=== PATIENT | female | born 1935 | race Caucasian/White ===

== ENCOUNTER 2018-07-17 10:59 | Inpatient (IN) | payer OTHER ==
--- OUTSIDE RECORDS SUMMARY | 2018-07-17 11:02 | XMS REPORT ---
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
--- OUTSIDE RECORDS SUMMARY | 2018-07-17 11:02 | XMS REPORT ---
:1935 Author Organization eClinicalWorks Care Team Providers Name Role Phone Viviana Cavanaugh Provider Role Unavailable Allergies, Adverse Reactions, Alerts Substance Reaction Event Type statin rabdo Drug Allergy penicillin Info Not Available Drug Allergy Ultram Info Not Available Drug Allergy Levemir Flexpen shaking Drug Allergy Glucophage name brand only, diarrhea Drug Allergy Fenofibrate muscle/joint pain Drug Allergy Cyproheptadine HCl Info Not Available Drug Allergy Coreg dizziness Drug Allergy BP Meds sleepy, can't stay awake Non Drug Allergy Problems Problem Type Condition Code Onset Dates Condition Status Assessment Hyperlipidemia, unspecified E78.5 Active hyperlipidemia type Assessment Chronic kidney disease, stage III N18.3 Active (moderate) Assessment Vitamin D deficiency E55.9 Active Assessment Skin lesion of cheek L98.9 Active Problem Essential (primary) hypertension I10 Active Problem Chronic kidney disease, stage III N18.3 Active (moderate) Problem Vitamin D deficiency E55.9 Active Assessment Essential (primary) hypertension I10 Active Assessment 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, unspecified laterality, unspecified retinopathy severity, unspecified whether intermediate designer insulin use Problem Hyperlipidemia, unspecified E78.5 Active hyperlipidemia type Problem 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, unspecified laterality, unspecified retinopathy severity, unspecified whether mcfp insulin use Medications Medication Code Code Instructions Start End Status Dosage System Date Date Daily Multi NDC 0 Orally Once a Active 1 tablet Vitamin/Minerals day Cyanocobalamin [facility] [address]-87 1000 MCG Orally Active 1 tablet Once a day Probiotic [facility] [address] Sep 08, Active not 2016 defined MetFORMIN HCl ER [facility] 52089919337 500 MG Active TAKE 1 TABLET BY MOUTH EVERY DAY Docusate Sodium ND 98572609080 100 MG Orally March 11, Active 1 capsule Once a day 2014 as needed Lantus SoloStar [facility] 11589214022 100 UNIT/ML Active 25-30 Subcutaneous units/55 pm/am units Vitamin D-3 [facility] [address]16-[address]483 1999 intl units Active 1 capsule Orally Once a day x 30 days Fish Oil [facility] 51348049822 1200 MG Orally May 20, Active 1 capsule Once a day 2014 Aspirin [facility] 20088121859 325 MG Orally May 20, Active 1 tablet Once a day 2014 Pataday [facility] 59205472236 0.2 % Sep 11, Active 1 drop Ophthalmic once 2016 a day x 10 days NIFEdipine ER [facility] 36699296583 30 MG Orally February 18, Active 1 tablet BID 2013 on an empty stomach Humalog KwikPen [facility] 03290110570 100 UNIT/ML Active Subcutaneous units Breakfast/lunch /dinner Results No Known Results Summary Purpose eClinicalWorks Submission
[2018-07-17 13:39] LABS: Absolute Lymphocytes (CBC) 2.2 K/uL (0.7-4.9); Absolute Monocytes 0.8 K/uL (0.1-1.3); Absolute Neutrophil 5.3 K/uL (1.8-8.0); Basophils % 0.9 % (0-1.3); Eosinophils % 2.3 % (0-4.4); Hematocrit 41.7 % (36.0-45.0); Lymphocytes % 25.8 % (15.3-44.8); MCH 31.2 pg (27.0-35.0); MCV 91.4 fL (80-100); MPV 9.2 fL (7.6-11.3); Monocytes % 9.5 % (3.3-12.3); RBC Red Blood Cell Count 4.56 M/uL (3.86-4.86)
[2018-07-17 13:45] LABS: Protime INR 1.09
[2018-07-17 13:46] LABS: Albumin 3.3 g/dL (3.4-5.0); Bilirubin Direct 0.1 mg/dL (0-0.2); Bilirubin Total 0.4 mg/dL (0.2-1.0); Magnesium 2.2 mg/dL (1.8-2.4); Potassium 4.1 mmol/L (3.5-5.1); Protein, Total 7.3 g/dL (6.4-8.2); Troponin (Emerg Dept Use Only) 0.27 ng/mL (0.0-0.045)
--- NOTE | 2018-07-17 14:11 | RAD REPORT ---
EXAM DESCRIPTION: CT - Chest For Pe Angio - 07/17/2018 1:57 pm CLINICAL HISTORY: Chest pain. Cough;Dyspnea COMPARISON: No comparisons TECHNIQUE: CT angiogram of the pulmonary arteries was performed with MIP. All CT scans are performed using dose optimization technique as appropriate and may include automated exposure control or mA/KV adjustment according to patient size. FINDINGS: No evidence of pulmonary thromboembolism. No acute aortic finding demonstrated. Mild to moderate interstitial pulmonary edema is present. Small bilateral pleural effusions are present. No concerning bony finding. IMPRESSION: No evidence of pulmonary thromboembolism. Moderate CHF versus volume overload pattern.
--- NOTE | 2018-07-17 14:24 | ER ---
Nurse's Notes [facility] Name: Rylee Burch Age: 82 yrs Sex: Female : 1935 Arrival Date: 07/17/2018 Time: 11:00 Bed 3 Private MD: Audrey Cavanaugh Diagnosis: Unspecified combined systolic (congestive) and diastolic (congestive) heart failure;Dyspnea;Essential (primary) hypertension;Type 1 diabetes mellitus;Cystitis Presentation: 07/17 11:04 Presenting complaint: Patient states: shortness of breath with exertion x 3 days. ss Transition of care: patient was not received from another setting of care. Onset of symptoms was July 14, 2018. Risk Assessment: Do you want to hurt yourself or someone else? Patient reports no desire to harm self or others. Initial Sepsis Screen: Does the patient meet any 2 criteria? No. Patient's initial sepsis screen is negative. Does the patient have a suspected source of infection? No. Patient's initial sepsis screen is negative. Care prior to arrival: None. 11:04 Method Of Arrival: Wheelchair ss 11:04 Acuity: JOSE E 3 ss Historical: - Allergies: 11:07 PENICILLINS; ss 11:07 Cyproheptadine; ss - PMHx: 11:07 Diabetes - IDDM; Hypertension; ss - Immunization history:: Adult Immunizations unknown. - Social history:: Smoking status: Patient/guardian denies using tobacco. - Ebola Screening: : Patient denies exposure to infectious person Patient denies travel to an Ebola-affected area in the 21 days before illness onset. - Family history:: not pertinent. Screenin:30 Abuse screen: Denies threats or abuse. Denies injuries from another. Nutritional jl7 screening: No deficits noted. Tuberculosis screening: No symptoms or risk factors identified. Fall Risk IV access (20 points). Total Houston Fall Scale indicates No Risk (0-24 pts). Assessment: 12:30 General: Appears in no apparent distress. uncomfortable, Behavior is calm, cooperative, jl7 appropriate for age. Pain: Denies pain. Neuro: Level of Consciousness is awake, alert, obeys commands, Oriented to person, place, time, situation. Cardiovascular: Rhythm is sinus rhythm. Respiratory: Airway is patent Respiratory effort is even, unlabored, Respiratory pattern is regular, symmetrical, Breath sounds are clear bilaterally. GI: No signs and/or symptoms were reported involving the gastrointestinal system. : No signs and/or symptoms were reported regarding the genitourinary system. EENT: No signs and/or symptoms were reported regarding the EENT system. Derm: Skin is pink, warm \T\ dry. Musculoskeletal: No signs and/or symptoms reported regarding the musculoskeletal system. 13:30 Reassessment: Patient appears in no apparent distress at this time. No changes from [facility] previously documented assessment. Patient and/or family updated on plan of care and expected duration. Pain level reassessed. Patient is alert, oriented x 3, equal unlabored respirations, skin warm/dry/pink. 15:00 Reassessment: Patient appears in no apparent distress at this time. Patient and/or jl7 family updated on plan of care and expected duration. Pain level reassessed. Patient is alert, oriented x 3, equal unlabored respirations, skin warm/dry/pink. 16:00 Reassessment: Patient appears in no apparent distress at this time. Patient and/or jl7 family updated on plan of care and expected duration. Pain level reassessed. Patient is alert, oriented x 3, equal unlabored respirations, skin warm/dry/pink. Pt requesting to talk to [facility], ERD notified. 16:30 Reassessment: Pt wants to talk to [facility] before going to the floor, ERD notified. [facility] 17:00 Reassessment: Dr. Sargent at bedside. [facility] Vital Signs: 11:04 BP 151 / 76; Pulse 104; Resp 18; Temp 98.1(TE); Pulse Ox 96% on R/A; Weight 102.06 kg; ss Height 5 ft. 2 in. (157.48 cm); Pain 0/10; 12:00 BP 152 / 74; Pulse 90; Resp 16; Pulse Ox 96% on R/A; jl7 13:00 BP 145 / 75; Pulse 98; Resp 16 S; Pulse Ox 95% on R/A; jl7 14:00 BP 129 / 69; Pulse 88; Resp 17 S; Pulse Ox 96% on R/A; jl7 15:00 BP 130 / 68; Pulse 88; Resp 17 S; Pulse Ox 95% on R/A; 7 16:00 BP 134 / 74; Pulse 88; Resp 16 S; Pulse Ox 95% on R/A; jl7 17:00 BP 120 / 67; Pulse 76; Resp 17 S; Pulse Ox 96% on R/A; jl7 11:04 Body Mass Index 41.15 (102.06 kg, 157.48 cm) ED Course: 11:00 Patient arrived in ED. rg4 11:01 Audrey Cavanaugh is Private Physician. rg4 11:06 Triage completed. ss 11:07 Arm band placed on right wrist. Patient notified of wait time. ss 12:16 Octavio Sargent MD is Attending Physician. shanice 12:30 Patient has correct armband on for positive identification. Placed in gown. Bed in low jl7 position. Call light in reach. Side rails up X2. workers compensation consultant on. Pulse ox on. NIBP on. Warm blanket given. 12:32 Melissa Tracey, KAREY is Primary Nurse. jl7 12:51 EKG done, by quality assurance qa lab technician. reviewed by Octavio Sargent MD. at1 13:03 Radiology exam delayed due to lab results not completed at this time. (BUN/Creatinine). vr 13:17 Inserted saline lock: 20 gauge in left antecubital area, using aseptic technique. iw 13:17 Initial lab(s) drawn, by me, sent to lab. Inserted saline lock: 22 gauge in right iw wrist, using aseptic technique. Blood collected. 13:22 Radiology exam delayed due to lab results not completed at this time. (BUN/Creatinine). kw1 13:58 CT Chest For PE Angio In Process Unspecified. EDMS 14:04 X-ray completed. Portable x-ray completed in exam room. Patient tolerated procedure mh1 well. 14:20 Solo Sanchez MD is Hospitalizing Provider. shanice 14:23 XRAY Chest (1 view) In Process Unspecified. EDMS 14:29 Urine collected: hat, cloudy. dh3 15:25 Hospitalizing Provider role handed off by Solo Sanchez MD bd 15:25 Adrien Ray MD is Hospitalizing Provider. bd 17:39 No provider procedures requiring assistance completed. Patient admitted, IV remains in jl7 place. intact, No redness/swelling at site. Administered Medications: Discontinued: NS 0.9% 1000 ml IV at 75 ml/hr continuous 13:00 Drug: NS 0.9% 1000 ml Route: IV; Rate: 75 ml/hr; Site: right antecubital; jl7 17:13 Follow up: IV Status: Order to discontinue infusion jl7 15:35 Drug: Pepcid 20 mg Route: IVP; Site: right antecubital; jl7 16:00 Follow up: Response: No adverse reaction jl7 15:39 Drug: Aspirin Chewable Tablet 324 mg Route: PO; jl7 17:29 Follow up: Response: No adverse reaction jl7 15:39 Drug: Lopressor (metoprolol TARTRATE) 50 mg Route: PO; jl7 16:00 Follow up: Response: No adverse reaction jl7 16:00 Drug: levofloxacin 500 mg Volume: 100 ml; Route: IVPB; Infused Over: 60 mins; Site: jl left antecubital; 17:00 Follow up: Response: No adverse reaction; IV Status: Completed infusion jl7 16:30 Drug: Lasix 40 mg Route: IVP; Site: left antecubital; jl7 17:29 Follow up: Response: No adverse reaction jl7 17:20 Drug: Lovenox 100 mg Route: Sub-Q; Site: left upper abdomen; jl7 17:30 Follow up: Response: No adverse reaction jl7 Point of Care Testing: Blood Glucose: 11:05 Blood Glucose: 103 mg/dL; jl7 Ranges: Outcome: 14:23 Decision to Hospitalize by Provider. shanice 17:39 Patient left the ED. iw 17:39 Admitted to Tele accompanied by tech, family with patient, via wheelchair, room 410, jl7 with chart, Report called to Floor RN 17:39 Condition: stable 17:39 Discharge instructions given to patient, Instructed on the need for admit, Demonstrated understanding of instructions. Signatures: Dispatcher [employer] Juliann Coelho Corey, MD MD cha Harvey, Martha mh1 Hilda Clemente, KAREY RN Stephie Calvo RN RN ss Davis, Victoria vr Gonzales, Amanda, chief operating engineer EKG Tat1 Charley Baldwin Jahala, RN RN jl7 Terri Roberts 3 Genesis Osborne kw1
--- NOTE | 2018-07-17 14:24 | EDPHYS ---
Physician Documentation [facility] Name: Rylee Burch Age: 82 yrs Sex: Female : 1935 Arrival Date: 07/17/2018 Time: 11:00 Bed 3 Private MD: Audrey Cavanaugh ED Physician Octavio Sargent HPI: 07/17 12:26 This 82 yrs old Female presents to ER via Wheelchair with complaints of shanice Breathing Difficulty, Trouble Walking. 12:26 The patient has shortness of breath at rest, with light activity. Onset: The shanice symptoms/episode began/occurred 5 day(s) ago. Duration: The symptoms are continuous, and are steadily getting worse. The patient's shortness of breath is aggravated by coughing, light activity, talking, walking. Associated signs and symptoms: The patient has no apparent associated signs or symptoms. Severity of symptoms: At their worst the symptoms were mild in the emergency department the symptoms are unchanged. The patient has not experienced similar symptoms in the past. Historical: - Allergies: 11:07 PENICILLINS; ss 11:07 Cyproheptadine; ss - PMHx: 11:07 Diabetes - IDDM; Hypertension; ss - Immunization history:: Adult Immunizations unknown. - Social history:: Smoking status: Patient/guardian denies using tobacco. - Ebola Screening: : Patient denies exposure to infectious person Patient denies travel to an Ebola-affected area in the 21 days before illness onset. - Family history:: not pertinent. ROS: 12:26 Constitutional: Negative for fever, chills, and weight loss, Eyes: Negative for injury, shanice pain, redness, and discharge, ENT: Negative for injury, pain, and discharge, Neck: Negative for injury, pain, and swelling, Cardiovascular: Negative for chest pain, palpitations, and edema, Abdomen/GI: Negative for abdominal pain, nausea, vomiting, diarrhea, and constipation, Back: Negative for injury and pain, : Negative for injury, bleeding, discharge, and swelling, MS/Extremity: Negative for injury and deformity, Skin: Negative for injury, rash, and discoloration, Neuro: Negative for headache, weakness, numbness, tingling, and seizure, Psych: Negative for depression, anxiety, suicide ideation, homicidal ideation, and hallucinations, Allergy/Immunology: Negative for hives, rash, and allergies, Endocrine: Negative for neck swelling, polydipsia, polyuria, polyphagia, and marked weight changes, Hematologic/Lymphatic: Negative for swollen nodes, abnormal bleeding, and unusual bruising. 12:26 Respiratory: Positive for cough, shortness of breath, at rest. Exam: 12:26 Constitutional: This is a well developed, well nourished patient who is awake, alert, shanice and in no acute distress. Head/Face: Normocephalic, atraumatic. Eyes: Pupils equal round and reactive to light, extra-ocular motions intact. Lids and lashes normal. Conjunctiva and sclera are non-icteric and not injected. Cornea within normal limits. Periorbital areas with no swelling, redness, or edema. ENT: Nares patent. No nasal discharge, no septal abnormalities noted. Tympanic membranes are normal and external auditory canals are clear. Oropharynx with no redness, swelling, or masses, exudates, or evidence of obstruction, uvula midline. Mucous membranes moist. Neck: Trachea midline, no thyromegaly or masses palpated, and no cervical lymphadenopathy. Supple, full range of motion without nuchal rigidity, or vertebral point tenderness. No Meningismus. Chest/axilla: Normal chest wall appearance and motion. Nontender with no deformity. No lesions are appreciated. Cardiovascular: Regular rate and rhythm with a normal S1 and S2. No gallops, murmurs, or rubs. Normal PMI, no JVD. No pulse deficits. Respiratory: Lungs have equal breath sounds bilaterally, clear to auscultation and percussion. No rales, rhonchi or wheezes noted. No increased work of breathing, no retractions or nasal flaring. Abdomen/GI: Soft, non-tender, with normal bowel sounds. No distension or tympany. No guarding or rebound. No evidence of tenderness throughout. Back: No spinal tenderness. No costovertebral tenderness. Full range of motion. Skin: Warm, dry with normal turgor. Normal color with no rashes, no lesions, and no evidence of cellulitis. MS/ Extremity: Pulses equal, no cyanosis. Neurovascular intact. Full, normal range of motion. Neuro: Awake and alert, GCS 15, oriented to person, place, time, and situation. Cranial nerves II-XII grossly intact. Motor strength 5/5 in all extremities. Sensory grossly intact. Cerebellar exam normal. Normal gait. Psych: Awake, alert, with orientation to person, place and time. Behavior, mood, and affect are within normal limits. Vital Signs: 11:04 BP 151 / 76; Pulse 104; Resp 18; Temp 98.1(TE); Pulse Ox 96% on R/A; Weight 102.06 kg; ss Height 5 ft. 2 in. (157.48 cm); Pain 0/10; 12:00 BP 152 / 74; Pulse 90; Resp 16; Pulse Ox 96% on R/A; jl7 13:00 BP 145 / 75; Pulse 98; Resp 16 S; Pulse Ox 95% on R/A; jl7 14:00 BP 129 / 69; Pulse 88; Resp 17 S; Pulse Ox 96% on R/A; jl7 15:00 BP 130 / 68; Pulse 88; Resp 17 S; Pulse Ox 95% on R/A; jl7 16:00 BP 134 / 74; Pulse 88; Resp 16 S; Pulse Ox 95% on R/A; jl7 17:00 BP 120 / 67; Pulse 76; Resp 17 S; Pulse Ox 96% on R/A; jl7 11:04 Body Mass Index 41.15 (102.06 kg, 157.48 cm) ss MDM: 12:16 Patient medically screened. [facility] 12:27 Data reviewed: vital signs, nurses notes, lab test result(s), EKG, radiologic studies, [facility] CT scan. 07/17 12:26 Order name: Basic Metabolic Panel; Complete Time: 14:04 [facility] 07/17 12:26 Order name: CBC with Diff; Complete Time: 14:04 [facility] 07/17 12:26 Order name: LFT's; Complete Time: 14:04 [facility] 07/17 12:26 Order name: Magnesium; Complete Time: 14:04 [facility] 07/17 12:26 Order name: NT PRO-BNP; Complete Time: 14:04 [facility] 07/17 12:26 Order name: PT-INR; Complete Time: 16:39 [facility] 07/17 12:26 Order name: Troponin (emerg Dept Use Only); Complete Time: 14:04 [facility] 07/17 12:26 Order name: Lipase; Complete Time: 14:04 [facility] 07/17 12:26 Order name: Blood Culture Adult (2) [facility] 07/17 12:26 Order name: Urine Culture [facility] 07/17 15:10 Order name: Urine Dipstick--Ancillary (enter results) 07/17 15:38 Order name: Basic Metabolic Panel [facility] 07/17 15:38 Order name: Basic Metabolic Panel [facility] 07/17 15:38 Order name: CBC with Automated Diff [facility] 07/17 12:26 Order name: XRAY Chest (1 view); Complete Time: 16:39 [facility] 07/17 12:26 Order name: CT Chest For PE Angio; Complete Time: 14:16 [facility] 07/17 14:19 Order name: Echo w/ Doppler [facility] 07/17 15:38 Order name: CBC with Automated Diff [facility]TX 07/17 15:38 Order name: NT PRO-BNP [facility]TX 07/17 15:38 Order name: NT PRO-BNP [facility] 07/17 15:38 Order name: Troponin I [facility] 07/17 15:38 Order name: Troponin I [facility]TX 07/17 15:38 Order name: Troponin I [facility] 07/17 12:26 Order name: EKG; Complete Time: 12:27 [facility] 07/17 12:26 Order name: Cardiac monitoring; Complete Time: 13:28 [facility] 07/17 12:26 Order name: EKG - Nurse/Tech; Complete Time: 13:28 [facility] 07/17 12:26 Order name: IV Saline Lock; Complete Time: 13:28 [facility] 07/17 12:26 Order name: Labs collected and sent; Complete Time: 13:28 [facility] 07/17 12:26 Order name: O2 Per Protocol; Complete Time: 13:28 [facility] 07/17 12:26 Order name: O2 Sat Monitoring; Complete Time: 13:28 [facility] 07/17 12:26 Order name: Urine Dipstick-Ancillary (obtain specimen); Complete Time: 14:30 [facility] 07/17 15:38 Order name: CONS Physician Consult [facility]TX 07/17 15:38 Order name: Consistent Carb (ADA) 1800 Rogelio [facility]TX 07/17 15:38 Order name: EKG Electrocardiogram [facility]TX 07/17 15:38 Order name: EKG Electrocardiogram EDTX Administered Medications: Discontinued: NS 0.9% 1000 ml IV at 75 ml/hr continuous 13:00 Drug: NS 0.9% 1000 ml Route: IV; Rate: 75 ml/hr; Site: right antecubital; jl7 17:13 Follow up: IV Status: Order to discontinue infusion jl7 15:35 Drug: Pepcid 20 mg Route: IVP; Site: right antecubital; jl7 16:00 Follow up: Response: No adverse reaction 7 15:39 Drug: Aspirin Chewable Tablet 324 mg Route: PO; jl7 17:29 Follow up: Response: No adverse reaction 7 15:39 Drug: Lopressor (metoprolol TARTRATE) 50 mg Route: PO; jl7 16:00 Follow up: Response: No adverse reaction 7 16:00 Drug: levofloxacin 500 mg Volume: 100 ml; Route: IVPB; Infused Over: 60 mins; Site: jl7 left antecubital; 17:00 Follow up: Response: No adverse reaction; IV Status: Completed infusion jl7 16:30 Drug: Lasix 40 mg Route: IVP; Site: left antecubital; jl7 17:29 Follow up: Response: No adverse reaction jl7 17:20 Drug: Lovenox 100 mg Route: Sub-Q; Site: left upper abdomen; jl7 17:30 Follow up: Response: No adverse reaction jl7 Point of Care Testing: Blood Glucose: 11:05 Blood Glucose: 103 mg/dL; jl7 Ranges: Critical Glucose Levels:Adult <50 mg/dl or >400 mg/dl <40 mg/dl or >180 mg/dl Disposition: 07/17/18 14:23 Hospitalization ordered by Adrien Ray for Inpatient Admission. Preliminary diagnosis are Unspecified combined systolic (congestive) and diastolic (congestive) heart failure, Dyspnea, Essential (primary) hypertension, Type 1 diabetes mellitus, Cystitis. - Bed requested for Telemetry/MedSurg (Inpatient). - Status is Inpatient Admission. iw - Condition is Fair. - Problem is new. - Symptoms have improved. UTI on Admission? Yes Signatures: Dispatcher [employer] Juliann Coelho Corey, MD MD cha Williams, Irene, RN RN iw Smirch, Shelby, RN RN ss Leal, Jahala, RN RN jl7 Corrections: (The following items were deleted from the chart) 14:28 14:23 Hospitalization Ordered by Solo Sanchez MD for Inpatient Admission. Preliminary shanice diagnosis is Unspecified combined systolic (congestive) and diastolic (congestive) heart failure; Dyspnea; Essential (primary) hypertension; Type 1 diabetes mellitus. Bed requested for Telemetry/MedSurg (Inpatient). Status is Inpatient Admission. Condition is Fair. Problem is new. Symptoms have improved. UTI on Admission? No. shanice 15:25 14:28 07/17/2018 14:23 Hospitalization Ordered by Solo Sanchez MD for Inpatient bd Admission. Preliminary diagnosis is Unspecified combined systolic (congestive) and diastolic (congestive) heart failure; Dyspnea; Essential (primary) hypertension; Type 1 diabetes mellitus; Cystitis. Bed requested for Telemetry/MedSurg (Inpatient). Status is Inpatient Admission. Condition is Fair. Problem is new. Symptoms have improved. UTI on Admission? Yes. shanice 16:35 15:25 07/17/2018 14:23 Hospitalization Ordered by Adrien Ray MD for Inpatient bd Admission. Preliminary diagnosis is Unspecified combined systolic (congestive) and diastolic (congestive) heart failure; Dyspnea; Essential (primary) hypertension; Type 1 diabetes mellitus; Cystitis. Bed requested for Telemetry/MedSurg (Inpatient). Status is Inpatient Admission. Condition is Fair. Problem is new. Symptoms have improved. UTI on Admission? Yes. bd 17:39 16:35 07/17/2018 14:23 Hospitalization Ordered by Adrien Ray MD for Inpatient iw Admission. Preliminary diagnosis is Unspecified combined systolic (congestive) and diastolic (congestive) heart failure; Dyspnea; Essential (primary) hypertension; Type 1 diabetes mellitus; Cystitis. Bed requested for Telemetry/MedSurg (Inpatient). Status is Inpatient Admission. Condition is Fair. Problem is new. Symptoms have improved. UTI on Admission? Yes. bd
--- NOTE | 2018-07-17 14:25 | RAD REPORT ---
EXAM DESCRIPTION: RAD - Chest Single View - 07/17/2018 2:11 pm CLINICAL HISTORY: Cough;Dyspnea Chest pain. COMPARISON: CHEST PA AND LAT 2 VIEW dated 02/06/2009 FINDINGS: Portable technique limits examination quality. Mild to moderate bilateral pulmonary opacities are noted likely representing pulmonary edema. Small b ilateral pleural effusions seen. Cardiac size mildly prominent. IMPRESSION: Mild to moderate CHF versus volume overload pattern.
--- NOTE | 2018-07-17 15:10 | EKG ---
Test Date: 2018-07-17 Test Time: 12:39:50 Lap Grinder: RHIANNON MEASUREMENT RESULTS: Intervals: Rate: 96 WY: 138 QRSD: 82 QT: 362 QTc: 457 [place]: P: 42 W[place]: 138 QRS: -4 T: 165 INTERPRETIVE STATEMENTS: Normal sinus rhythm ST & T wave abnormality, consider lateral ischemia Abnormal ECG Compared to ECG 02/26/2014 14:27:38 ST (T wave) deviation now present Electronically Signed On 07-17-18 15:09:47 PIPE ORGAN INSTALLER by Lucian Whitehead
[2018-07-17] MEDS ORDERED: NA CHLORIDE 0.9% 1,000 ML ONE (15:32)
[2018-07-17] MEDS ORDERED: ASPIRIN 81 MG CHEWABLE TABLET ONE (15:32)
[2018-07-17] MEDS ORDERED: Levofloxacin500mg IV 500 MG/100 ML BAG IV ONE (15:32)
[2018-07-17] MEDS ORDERED: FUROSEMIDE 40 MG/4 ML VIAL ONE (15:32)
[2018-07-17] MEDS ORDERED: FAMOTIDINE 20 MG/2 ML VIAL IV ONE (15:32)
[2018-07-17] MEDS ORDERED: METOPROLOL TAR 50 MG TAB ONE (15:32)
[2018-07-17] MEDS ORDERED: ALBUTEROL 2.5 MG/3 ML NEB SOL NEB PRN (15:35)
[2018-07-17] MEDS ORDERED: MORPHINE 2 MG/ML SYR IV PRN (15:35)
[2018-07-17] MEDS ORDERED: IPRATROPIUM BROM 0.5MG/2.5ML NEB PRN (15:35)
[2018-07-17] MEDS ORDERED: ACETAMINOPHEN 500 MG TAB PO PRN (15:35)
[2018-07-17] MEDS ORDERED: ONDANSETRON 4 MG/2 ML VIAL IV PRN (15:35)
[2018-07-17] MEDS ORDERED: ENOXAPARIN 100 MG/ML SYR SQ SCH (16:00)
[2018-07-17] MEDS ORDERED: FUROSEMIDE 20 MG/ 2ML VIAL IV SCH (17:00)
[2018-07-17] MEDS ORDERED: ENOXAPARIN 100 MG/ML SYR SQ ONE (17:24)
[2018-07-17 18:31] VITALS: BMI 40.8
[2018-07-17] MEDS ORDERED: PNEUMOCOCCAL VACCINE 0.5 ML IMVAC ONE (21:00)
[2018-07-17] MEDS ORDERED: METOPROLOL TAR 50 MG TAB PO SCH (21:00)
[2018-07-17 22:09] LABS: Urine Blood NEGATIVE (NEG); Urine Glucose NEGATIVE (NEG); Urine Protein NEGATIVE (NEG); Urine Specific Gravity 1.015 (1.005-1.030)
[2018-07-18 05:03] LABS: Absolute Lymphocytes (CBC) 2.6 K/uL (0.7-4.9); Absolute Monocytes 0.9 K/uL (0.1-1.3); Absolute Neutrophil 4.5 K/uL (1.8-8.0); Basophils % 0.9 % (0-1.3); Eosinophils % 3.1 % (0-4.4); Hematocrit 37.5 % (36.0-45.0); Lymphocytes % 31.6 % (15.3-44.8); MCH 30.6 pg (27.0-35.0); MCV 91.4 fL (80-100); MPV 9.3 fL (7.6-11.3)
--- NOTE | 2018-07-18 07:03 | RAD REPORT ---
EXAM DESCRIPTION: RAD - Chest Single View - 07/18/2018 6:43 am CLINICAL HISTORY: Chest pain COMPARISON: July 17January 2009 TECHNIQUE: AP portable chest image was obtained 0624 hours . FINDINGS: No new mass or consolidation. Lung markings have diminished fractionally from the prior st udy. Heart size has decreased in size. Trachea remains midline. No pneumothorax or enlarging pleural effusion. Left costophrenic angle blunting has improved. No acute bony abnormality seen. No acute aor tic findings suspected. IMPRESSION: Partial resolution of CHF/ volume overload since prior day study.
[2018-07-18] MEDS ORDERED: GLUCAGON 1 MG/VIAL IM PRN (08:27)
[2018-07-18] MEDS ORDERED: D50W 25 GM/50 ML SYRINGE IV PRN (08:27)
[2018-07-18] MEDS ORDERED: INSULIN GLARGINE HUM REC ANLOG 80 UNIT SQ SCH (09:00)
[2018-07-18] MEDS: ASCORBIC ACID 500 MG TABLET PO SCH (09:45)
[2018-07-18] MEDS: VITAMIN D 1000 UNIT TAB PO SCH (09:45)
[2018-07-18] MEDS: DOCOSAHEXANOIC AC/EPA 1000 MG PO SCH (09:45)
[2018-07-18] MEDS: MULTIVIT W/ MINERAL TAB PO SCH (09:45)
[2018-07-18] MEDS: NIFEDIPINE XL 30 MG TABLET PO SCH ×2 (09:45→20:56)
[2018-07-18] MEDS: ASPIRIN 81 MG CHEWABLE TABLET PO SCH (09:45)
[2018-07-18] MEDS: FUROSEMIDE 40 MG/4 ML VIAL IV SCH ×2 (09:47→17:10)
[2018-07-18] MEDS: INSULIN -REGULAR HUMAN 50 UNIT/0.5 ML ML SQ SCH ×3 (12:08→20:56)
--- NOTE | 2018-07-18 12:13 | ECHO ---
HEIGHT: 5 ft 2 in WEIGHT: 223 lb 11.2 oz DATE OF STUDY: 07/18/[address]: 2-DIMENSIONAL: YES M.MODE: YES DOPPLER: YES COLOR FLOW: YES TDS: NO PORTABLE: NO DEFINITY: NO BUBBLE STUDY: NO DIAGNOSIS: CONGESTIVE HEART FAILURE CARDIAC HISTORY: CATHERIZATION: SURGERY: PROSTHETIC VALVE: PACEMAKER: MEASUREMENTS (cm) DIASTOLIC (NORMALS) SYSTOLIC (NORMALS) IVSd 1.1 (0.6-1.2) LA Diam 3.3 (1.9-4.0) LVEF 40-45% LVIDd 4.7 (3.5-5.7) LVIDs 3.5 (2.0-3.5) %FS 24% LVPWd 1.1 (0.6-1.2) Ao Diam 2.4 (2.0-3.7) 2 DIMENSIONAL ASSESSMENT: RIGHT ATRIUM: NORMAL LEFT ATRIUM: NORMAL RIGHT VENTRICLE: NORMAL LEFT VENTRICLE: NORMAL SIZE TRICUSPID VALVE: NORMAL MITRAL VALVE: MITRAL ANNULAR CALCIFICATION PULMONIC VALVE: NORMAL AORTIC VALVE: SCLEROSIS PERICARDIAL EFFUSION: NONE AORTIC ROOT: NORMAL LEFT VENTRICULAR WALL MOTION: ANTEROAPICAL HYPOKINESIS. DOPPLER/COLOR FLOW: MILD TRICUSPID REGURGITATION. COMMENTS: ANTEROAPICAL HYPOKINESIS. EJECTION FRACTION 40-45%. MITRAL ANNULAR CALCIFICATION. AORTIC SCLEROSIS. TECHNOLOGIST: AMAURY CHANDLER RDCS
--- NOTE | 2018-07-18 13:31 | CON ---
Date of Consultation: 07/18/2018 Reason For Consultation: [id number] myocardial infarction and new-onset congestive heart failu re. History Of Present Illness: Ms. Burch is an 82-year-old woman who has been fairly healthy. She does have diabetes and hypertension. She has been having dyspnea on exertion and chest tightness for abou t a week or 2. She finally came into the emergency room because she could not lie down flat, had PND , orthopnea, and pedal edema. No palpitation, no syncope. She had some chest tightness. She was fo und to have an elevated troponin. Her BNP was 1007. Chest x-ray and CT angiogram showed significant heart failure. EKG showed inferolateral ischemia. She continues to be short of breath. Past Medical History: As stated above. Allergies: SHE IS ALLERGIC TO PENICILLIN AND CYPROHEPTADINE. Review of Systems: Negative. Social History: Negative. Family History: Negative. Medications: Include aspirin, Procardia, and insulin. Physical Examination: General: Ms. Burch weighs 223 pounds. She was in mild respiratory distress. Vital Signs: Stable. She was in a sinus rhythm, afebrile. HEENT: Negative. Neck: Supple without any bruit or lymphadenopathy. She had JVD 3 cm. No thyromegaly. Chest: Reveals some rales at the bases. Cardiac: Reveals regular rhythm and rate without murmurs, gallops, or rubs. Abdomen: Obese, but benign. Extremities: Revealed edema. Diagnostic Data: Stated earlier. Her present treatment includes Lasix, metoprolol and Lovenox. Impression And Plan: 1.[id number] myocardial infarction. 2.Congestive heart failure, probably systolic. An echocardiogram is pending. 3.Diabetes. 4.Hypertension present regimen. She needs to be off the Procardia. Ms. Burch needs to be diuresed aggressively. Once she is able to lie flat, we will proceed with a heart catheterization t o define her coronary anatomy. She understands the risk and the benefit of the procedure and agrees to proceed. I will discuss the case further with Dr. Ray. EVELYN/MARILEE Voice ID: [id number] Report ID: [id number]
[2018-07-18] MEDS ORDERED: ENOXAPARIN 40 MG/0.4 ML SQ SCH (17:00)
--- NOTE | 2018-07-18 18:04 | P.HP ---
Certification for Inpatient Patient admitted to: Inpatient With expected LOS: >2 Midnights Patient will require the following post-hospital care: None Practitioner: I am a practitioner with admitting privileges, knowledge of patient current condition, hospital course, and medical plan of care. 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 She has a history of htn, dm on insulin. History of ckd which is stable at stage 2. She has been having shortness of breath and swelling of her legs for the past week and a half. This has been coming and going. But occurring more frequently the past few days. She has not been able to sit up in bed. She has been tried on numerous medications for her bp. However states they make her sleepy or dizzy. Her last a1c was in December was 9.5 Allergies cyproheptadine HCl [From Periactin] Allergy (Verified 07/17/18 18:44) Anaphylaxis Penicillins Allergy (Verified 07/17/18 18:44) Rash Home Medications: Ascorbic Acid [Vitamin C] 500 mg PO DAILY 07/17/18 Aspirin 325 mg PO DAILY 07/17/18 B12/Levomefolate Calcium/B-6 [Foltx Tablet] 1 each PO DAILY 07/17/18 Cholecalciferol (Vitamin D3) [Vitamin D 1000 Iu Tab*] 1,000 unit PO DAILY Insulin Glargine,Hum.rec.anlog [Lantus Solostar] 55 units SQ DAILY WITH BREAKFAST 07/17/18 Insulin Lispro [Humalog Kwikpen U-100] 50 units SQ BID 07/17/18 Multivit-Min/Iron/Folic/Lutein [[facility] Women's Tab] 1 tab PO DAILY 10/30 Nifedipine [Nifedipine ER] 30 mg PO BID 07/17/18 [place]-3 Fatty Acids/Fish Oil [Fish Oil 1,000 mg Capsule] 1,000 mg PO DAILY 07/17 Insulin Glargine,Hum.rec.anlog [Lantus] 25 unit SQ BEDTIME 07/18/18 - Past Medical/Surgical History Has patient received pneumonia vaccine in the past: No -: Iddm -: htn -: cataract sx -: hysterectomy - Family History Father -: Heart disease, Stroke Mother -: Heart disease, Stroke - Social History Smoking Status: Never smoker Alcohol use: No CD- Drugs: No Caffeine use: Yes Place of Residence: Home Review of Systems 10-point ROS is otherwise unremarkable Respiratory: SOB with Excertion Cardiovascular: Orthopnea, Paroxysmal Noc. Dyspnea, Edema Physical Examination - Vital Signs Temperature: 98.3 F Blood Pressure: 142/67 Pulse: 93 Respirations: 18 Pulse Ox (%): 94 - Physical Exam General: Alert, In no apparent distress HEENT: Atraumatic, PERRLA, Mucous membr. moist/pink, EOMI, Sclerae nonicteric Neck: Supple, 2+ carotid pulse no bruit, No LAD, Without JVD or thyroid abnormality Respiratory: Clear to auscultation bilaterally, Normal air movement Cardiovascular: Regular rate/rhythm, Normal S1 S2, Edema (1+) Gastrointestinal: Normal bowel sounds, No tenderness Musculoskeletal: No tenderness Integumentary: No rashes Neurological: Normal gait, Normal speech, Normal strength at 5/5 x4 extr, Normal tone, Normal affect Lymphatics: No axilla or inguinal lymphadenopathy Assessment and Plan - Problems (Diagnosis) (1) CHF (congestive heart failure) Onset Date: 07/18/18 Current Visit: Yes Status: Acute Plan: New onset. Seen by Dr. Lopez. Plan is to diuresis the patient and then a cardiac cath. Qualifiers: Heart failure type: systolic Heart failure chronicity: acute on chronic Qualified Code(s): I50.23 - Acute on chronic systolic (congestive) heart failure (2) Diabetes 1.5, managed as type 2 Current Visit: Yes Status: Acute Plan: Will restart her home insulin with a sliding scale to cover. Recheck her a1c (3) HTN (hypertension) Current Visit: Yes Status: Acute Plan: Has been difficult to control due to side effects of numerous medications. We may have to be a bit forceful. However will hold for now, per Dr Lopez. Will restart after the cath. Qualifiers: Hypertension type: essential hypertension Qualified Code(s): I10 - Essential (primary) hypertension (4) CKD (chronic kidney disease) stage 2, GFR 60-89 ml/min Current Visit: Yes Status: Acute Plan: she is currently stable Would monitor the function before cath. Her baseline gfr is 65 Discharge Plan: Home Plan to discharge in: Greater than 2 days - Advance Directives Does patient have a Living Will: No Does patient have a Durable POA for Healthcare: No - Code Status/Comfort Care Code Status Assessed: Yes Code Status: Full Code Physician Review: Patient Assessed, Agree with Above Assessment and Plan Critical Care: No Time Spent Managing Pts Care (In Minutes): 50
[2018-07-18] MEDS ORDERED: INSULIN GLARGINE 100 UNITS/ML SQ SCH (21:00)
--- NOTE | 2018-07-18 22:42 | EKG ---
Test Date: 2018-07-18 Test Time: 11:18:02 Salesperson [employer]obiles: RHIANNON MEASUREMENT RESULTS: Intervals: Rate: 92 MA: 132 QRSD: 90 QT: 354 QTc: 437 [place]: P: 50 [place]: 132 QRS: -15 T: 164 INTERPRETIVE STATEMENTS: Normal sinus rhythm ST & T wave abnormality, consider lateral ischemia Abnormal ECG Compared to ECG 07/17/2018 12:39:50 No significant changes Electronically Signed On 07-18-18 22:41:19 IT AUDIT MANAGER by Lucian Whitehead
[2018-07-19] MEDS ORDERED: PANTOPRAZOLE 40MG TABLET PO SCH (06:30)
[2018-07-19] MEDS ORDERED: HEPA 1000U/500MLS 2,000 UNIT/1,000 ML BAG IV ONE (07:17)
[2018-07-19] MEDS ORDERED: LIDOCAINE 1% MPF 5 ML VIAL ONE (07:18)
[2018-07-19] MEDS: INSULIN -REGULAR HUMAN 50 UNIT/0.5 ML ML SQ SCH ×2 (07:30→12:21)
[2018-07-19 07:54] LABS: Magnesium 1.9 mg/dL (1.8-2.4); Thyroid Stimulating Hormone 1.99 uIU/mL (0.360-3.740)
[2018-07-19] MEDS ORDERED: NA CHLORIDE 0.9% 500 ML ONE (07:55)
[2018-07-19] MEDS ORDERED: INSULIN GLARGINE 100 UNITS/ML SQ SCH (08:00)
[2018-07-19] MEDS ORDERED: MIDAZOLAM HCL 2 MG/2 ML INJ ONE ×2 (08:08→08:31)
[2018-07-19] MEDS ORDERED: HEPARIN 5000 UNIT/ML 1 ML VIAL ONE (08:08)
[2018-07-19] MEDS ORDERED: NA CHLORIDE 0.9% 0 ML ONE (08:09)
[2018-07-19] MEDS ORDERED: NITROGLYCERIN/D5W 25 MG/250 ML BTL IV ONE (08:09)
[2018-07-19] MEDS ORDERED: NITROGLYCERIN 100 MCG/ML SYR (for cath lab use only) IV ONE (08:09)
[2018-07-19] MEDS ORDERED: NICARDIPINE HCL 25 MG/10 ML IV ONE (08:09)
[2018-07-19] MEDS ORDERED: ATROPINE SULF 1 MG/10 ML SYR IV ONE (08:09)
[2018-07-19] MEDS ORDERED: FENTANYL CITR 100 MCG/2 ML ONE (08:09)
[2018-07-19] MEDS ORDERED: FOLBIC 1 TAB PO SCH (09:00)
[2018-07-19] MEDS: ASCORBIC ACID 500 MG TABLET PO SCH (09:00)
[2018-07-19] MEDS: MULTIVIT W/ MINERAL TAB PO SCH (09:00)
[2018-07-19] MEDS: NIFEDIPINE XL 30 MG TABLET PO SCH (09:00)
[2018-07-19] MEDS: FUROSEMIDE 40 MG/4 ML VIAL IV SCH (09:00)
[2018-07-19] MEDS: VITAMIN D 1000 UNIT TAB PO SCH (09:00)
[2018-07-19] MEDS: DOCOSAHEXANOIC AC/EPA 1000 MG PO SCH (09:00)
[2018-07-19] MEDS: ASPIRIN 81 MG CHEWABLE TABLET PO SCH (09:00)
--- NOTE | 2018-07-19 10:15 | P.DS ---
Admission Date: 07/17/18 Discharge Date: 07/19/18 Primary Care Provider: Dharmesh Cavanaugh Disposition: TRANSFER TO [facility] Reason for Admission: Chf Exacerbation - Problems (1) CHF (congestive heart failure) Onset Date: 07/18/18 Current Visit: Yes Status: Acute Qualifiers: Heart failure type: systolic Heart failure chronicity: acute on chronic Qualified Code(s): I50.23 - Acute on chronic systolic (congestive) heart failure (2) Diabetes 1.5, managed as type 2 Current Visit: Yes Status: Acute (3) HTN (hypertension) Current Visit: Yes Status: Acute Qualifiers: Hypertension type: essential hypertension Qualified Code(s): I10 - Essential (primary) hypertension (4) CKD (chronic kidney disease) stage 2, GFR 60-89 ml/min Current Visit: Yes Status: Acute Brief History of Present Illness: 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 She has a history of htn, dm on insulin. History of ckd which is stable at stage 2. She has been having shortness of breath and swelling of her legs for the past week and a half. This has been coming and going. But occurring more frequently the past few days. She has not been able to sit up in bed. She has been tried on numerous medications for her bp. However states they make her sleepy or dizzy. Her last a1c was in December was 9.5 Hospital Course: Patient was diuresis. She was taken to the aquatic life laborer this morning. 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 She would do better with a cath. Dr Whitehead initiated a transfer to [facility]. Will have her follow up With Maritza and Dr. Whitehead upon discharge Vital Signs/Physical Exam: Temp Pulse Resp BP Pulse Ox 98.7 F 95 H 16 121/54 L 93 07/19/18 09:35 07/19/18 09:35 07/19/18 09:35 07/19/18 09:35 07/19/18 04:00 General: Alert, In no apparent distress HEENT: Atraumatic, PERRLA, EOMI Neck: Supple, JVD not distended Respiratory: Clear to auscultation bilaterally, Normal air movement Cardiovascular: Regular rate/rhythm, Normal S1 S2 Gastrointestinal: Normal bowel sounds, No tenderness Musculoskeletal: No tenderness Integumentary: No rashes Neurological: Normal speech, Normal tone, Normal affect Lymphatics: No axilla or inguinal lymphadenopathy Laboratory Data at Discharge: WBC 8.4 K/uL (4.3-10.9) 07/18/18 03:51 Hgb 12.5 g/dL (12.0-15.0) 07/18/18 03:51 Hct 37.5 % (36.0-45.0) 07/18/18 03:51 Plt Count 299 K/uL (152-406) 07/18/18 03:51 PT 12.9 SECONDS (9.5-12.5) H 07/17/18 13:15 INR 1.09 07/17/18 13:15 Sodium 145 mmol/L (136-145) 07/18/18 03:51 Potassium 4.0 mmol/L (3.5-5.1) 07/18/18 03:51 BUN 17 mg/dL (7-18) 07/18/18 03:51 Creatinine 0.90 mg/dL (0.55-1.3) 07/18/18 03:51 Glucose 187 mg/dL (74-106) H 07/18/18 03:51 Magnesium 1.9 mg/dL (1.8-2.4) 07/19/18 06:32 Total Bilirubin 0.4 mg/dL (0.2-1.0) 07/17/18 13:15 AST 18 U/L (15-37) 07/17/18 13:15 ALT 22 U/L (12-78) 07/17/18 13:15 Alkaline Phosphatase 71 U/L (45-117) 07/17/18 13:15 Troponin I 0.35 ng/mL (0.0-0.045) H 07/17/18 20:39 Triglycerides 173 mg/dL (<150) H 07/19/18 06:32 Cholesterol 173 mg/dL (<200) 07/19/18 06:32 HDL Cholesterol 33 mg/dL (40-60) L 07/19/18 06:32 Cholesterol/HDL Ratio 5.24 07/19/18 06:32 Lipase 27 U/L (73-393) L 07/17/18 13:15 Home Medications: Ascorbic Acid [Vitamin C] 500 mg PO DAILY 07/17/18 Aspirin 325 mg PO DAILY 07/17/18 B12/Levomefolate Calcium/B-6 [Foltx Tablet] 1 each PO DAILY 07/17/18 Cholecalciferol (Vitamin D3) [Vitamin D 1000 Iu Tab*] 1,000 unit PO DAILY Insulin Glargine,Hum.rec.anlog [Lantus Solostar] 55 units SQ DAILY WITH BREAKFAST 07/17/18 Insulin Lispro [Humalog Kwikpen U-100] 50 units SQ BID 07/17/18 Multivit-Min/Iron/Folic/Lutein [[facility] Women's Tab] 1 tab PO DAILY 10/30 Nifedipine [Nifedipine ER] 30 mg PO BID 07/17/18 [place]-3 Fatty Acids/Fish Oil [Fish Oil 1,000 mg Capsule] 1,000 mg PO DAILY 07/17 Insulin Glargine,Hum.rec.anlog [Lantus] 25 unit SQ BEDTIME 07/18/18 Diet: ADA Time spent managing pt's care (in minutes): 40
[2018-07-19 13:23] VITALS: O2SAT 96
[2018-07-19 13:33] VITALS: BP 101/62; TEMP 97.8
--- NOTE | 2018-07-19 20:17 | OP ---
Surgeon: Lucian Whitehead MD An 82-year-old woman. Procedures: 1.Left heart catheterization. 2.Coronary and left ventricular angiography. Findings: The patient's right coronary artery is normal. The patient's left main has an ostial 70% stenosis and distal 50% stenosis. The ostium of the LAD actually still involving the left main has 9 9% stenosis. The circumflex is free of significant stenosis. Left ventricular end-diastolic pressur e is normal. Ejection fraction is 30% to 35% percent with anteroapical akinesis and the recommendati on is that she undergo bypass surgery. Procedure In Detail: The patient was brought to the cardiac recyclable materials sorter fasting, sedated with Versed an d fentanyl. Prepared and draped in the usual sterile fashion. Right radial approach was used. Righ t radial artery identified through palpation. Tissues around the artery were anesthetized with 1% li docaine. The artery was entered using a 21-gauge needle, cannulated with a 0.021 inch diameter guide wire and a Human [employer]and 6-[place] radial sheath was placed. We then used a TIG catheter guided into the asc ending aorta using fluoroscopy and a Glidewire. We angiogram the right coronary, left coronary, left ventricle with the same catheter. We then removed the catheter, straightened out over a J-wire, flu shed the sheath, removed it, and closed the arteriotomy with a TR band. Estimated Blood Loss: 5 cc. Top Lifter: Shin Gallo. Complications: None. MARÍA ELENA/MARILEE Voice ID: [id number] Report ID: [id number]
== END 2018-07-19 15:19 | disposition short-term general hospital (02) | DRG 280 ==
LOC: ER 10:59 → ERHOLD 15:32 → 4TH 17:27
PROVIDERS: ADMIT Internal Medicine; ATTEND Internal Medicine
PROC: 4A023N7 Measurement of Cardiac Sampling and Pressure, Left Heart, Percutaneous Approach (ICD-10-PCS; principal; 2018-07-19)
PROC: B211YZZ Fluoroscopy of Multiple Coronary Arteries using Other Contrast (ICD-10-PCS; 2018-07-19)
PROC: B215YZZ Fluoroscopy of Left Heart using Other Contrast (ICD-10-PCS; 2018-07-19)
DX: I21.4 Non-ST elevation (NSTEMI) myocardial infarction (principal); I50.23 Acute on chronic systolic (congestive) heart failure; I13.0 Hypertensive heart and chronic kidney disease with heart failure and stage 1 through stage 4 chronic kidney disease, or unspecified chronic kidney disease; N18.2 Chronic kidney disease, stage 2 (mild); E11.22 Type 2 diabetes mellitus with diabetic chronic kidney disease; Z88.0 Allergy status to penicillin; Z79.4 Long term (current) use of insulin
CPT/HCPCS: 36415; 71045; 71275; 80048; 80061; 80076; 81003; 82962; 83036; 83690; 83735; 83880; 84134; 84443; 84484; 85025; 85610; 87040; 87077; 87086; 87088; 87186; 93005; 93306; 93458; 96372; 97116; 97163; 97530; 99285; C1893; J0583; J1644; J1650; J1940; J2250; J3010; J7030; Q9967

== ENCOUNTER 2020-12-04 10:33 | Inpatient (IN) | payer OTHER ==
--- OUTSIDE RECORDS SUMMARY | 2020-12-04 10:38 | XMS REPORT | Continuity of Care Document ---
:1935 Author Organization [facility] t Address 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 diabetes diabetes Medica l mellitus mellitus Center without without complicati complicati on, with on, with long-term long-term current current use of use of insulin insulin Allergies, Adverse Reactions, Alerts Allergy Allergy Status Severity Reaction(s) Onset Inactive Treating Comm ents Source Name Type Date Date Clinician Ammon Bryani Active Rash 2017-[address] [facility] [facility] ty to 09-19 [facility] - adverse 00:00: Medical reaction 00 Center s Cyprohep Propensi Active Anaphylaxis 2017-[address] tadine ty to 09-19 [facility] - adverse 00:00: Medical reaction 00 Center s Penicill Propensi Active Rash 2017-[address] ins ty to 05 [facility] - adverse 00:00: Medical reaction 00 Center s statin Adverse Active rabdo [facility] Reaction [facility] penicill Adverse Active Info Not [facility] in Reaction Available [facility] Ultram Adverse Active Info Not [facility] Reaction Available [facility] Levemir Adverse Active shaking [facility] Flexpen Reaction [facility] - [facility] Cyprohep Adverse Active Info Not [facility] tadine Reaction Available [facility] Coreg Adverse Active dizziness [facility] Reaction [facility] BP Meds Adverse Active sleepy, [facility] Reaction can't stay [facility] Fenofibr Adverse Active muscle/joint C [facility] ate Reaction pain kes - Memoria [facility] NovoLog Adverse Active adverse [facility] Flexpen Reaction effect [facility] - shaking [facility] Glucopha Adverse Active name brand [facility] ge Reaction only, [facility] Social History Social Habit Start Date Stop Date Quantity Comments Source History [facility] - Alcohol Std Drinks [facility] History [facility] - Alcohol Binge Medical Isaac ter Sex Assigned At [facility] Tobacco use and 2018-08-11 2018-08-[address] [facility] Aruna kes - exposure 00:00:00 00:00:00 [facility] Alcohol intake 2018-08-11 2018-08-11 [facility]00 non-drinker of Medical Ce nter alcohol (finding) History [facility] 2018-07-19 2018-07-[address] [facility] - Alcohol Frequency 00:00:00 00:00:00 [facility] Smoking Status Start Date Stop Date Source Never smoker [facility] kes - M edical Center Medications Ordered Filled Start Stop Current Ordering Indication Dosage Frequency Signature Comments Components Source Medication Medication Date Date Medication? Clinician (SIG) Name Name acetaminoph 2017-08 Yes 650mg Take [address] en 2-27 mg by [facility] - (TYLENOL) 09:44: mouth Medical 325 MG 17 every 6 Center tablet (six) hours as needed for Pain. aspirin 325 2017-08 Yes 325mg QD Take [address] MG tablet 2-27 mg by [facility] - 09:44: mouth Medical 17 daily. [place] ascorbic 2017-08 Yes 500mg QD Take [address] acid, 2-27 mg by [facility] - vitamin C, 09:29: mouth Medica l (VITAMIN C) 25 daily. [place] 500 MG tablet multivitami 2017-08 Yes 1{tbl} QD Take [address] n per 2-27 tablet by [facility] - tablet 09:29: mouth Medical 25 daily. [place] cholecalcif 2017-08 Yes 1000U QD Take 1,[address] cecilia, 2-27 Units by [facility] - vitamin D3, 09:29: mouth Medic al (VITAMIN 25 daily. [place] D3) 1,000 unit capsule mecobalamin 2017-08 Yes Take by [facility] /L-mefolate 2-27 mouth. [facility] - /B6 phos 09:29: Medical (LEVOMEFOLA 25 Center TE & VITAMINS B12-B6 ORAL) omega-3 2017-08 Yes 1g Q.5D Take [address] fatty 2-27 by mouth 2 [facility] - acids-fish 09:29: (two) Medica l oil 25 times Center 340-1,000 daily. mg Cap per capsule insulin 2017-08 Yes 8U Q.5D Inject [address] lispro 2-14 Units [facility] - (HUMALOG) 00:00: subcutaneo Me dical 100 unit/mL 00 usly 2 Center injection (two) times daily. Pataday Pataday Yes Audrey [address] 1-28 [place] [facility] - 00:00: Memoria 00 l Outpati ent Clinics Probiotic Probiotic Yes Audrey not [facility] 1-25 [place] defined [facility] - 00:00: Memoria 00 l Outpati ent Clinics Aspirin Aspirin 2014-08 Yes Audrey [address] 0-06 [place] [facility] - 00:00: Memoria 00 l Outpati ent Clinics Fish Oil Fish Oil 2014-08 Yes Audrey [address] 0-06 [place] [facility] - 00:00: Memoria 00 l Outpati ent Clinics Docusate Docusate Yes Audrey [address] Sodium Sodium 7-28 [place] as needed [facility] - 00:00: Memoria 00 l Outpati ent Clinics Daily Multi Daily Multi Yes Audrey [address] Vitamin/Min Vitamin/Min [place] [facility] - erals erals [facility] l [facility] Clinics Cyanocobala Cyanocobala Yes Audrey [address] min min [place] [facility] Digoxin Digoxin Yes Audrey [address] [place] [facility] - [facility] Amiodarone Amiodarone Yes Audrey [address] HCl HCl [place] [facility] - [facility] NIFEdipine NIFEdipine Yes Audrey TAKE [address] ER ER [place] TABLET BY [facility]ukes - MOUTH Memoria TWICE A l DAY [facility] Eliquis 5 Eliquis 5 Yes Audrey one [facility] mg mg [place] [facility] - [facility] Metoprolol Metoprolol Yes Audrey [address] Tartrate Tartrate [place] with food L ukes [facility] l [facility] Atorvastati Atorvastati Yes Audrey [address] n Calcium n Calcium [place] Luke s - [facility] l [facility]ics potassium potassium Yes Audrey [address] [place] [facility] - [facility]ics Bumex Bumex Yes Audrey as [facility] [place] directed [facility] - [facility]ics Humalog Humalog Yes Audrey INJECT [address] KwikPen KwikPen [place] UNITS AT Luke s - BREAKFAST, Memoria 18 UNITS l AT LUNCH, Outpati 14 UNITS ent AT DINNER Clinics BD Pen BD Pen Yes Audrey USE THREE [facility] t Needle Lulu Needle Lulu [place] TIMES [facility]ukes - U/F U/F DAILY [facility] ent Clinics MetFORMIN MetFORMIN Yes Audrey TAKE [address] HCl ER HCl ER [place] TABLET BY [facility]ukes - MOUTH Memoria EVERY DAY l [facility] ent Clinics Lantus Lantus Yes Audrey INJECT 50 [facility] t [employer] [place] UNITS IN Aruna kes - AM AND 30 Memoria UNITS IN l PM [facility] Vitamin D-3 Vitamin D-3 Yes Audrey [address] [place] [facility] - [facility] ent Clinics Procedures This patient has no known procedures. Plan of Care Planned Activity Planned Date Details Comments Source Future Scheduled 2020-04-15 INFLUENZA VACCINE (#1) [facility] - Test 00:00:00 [code = INFLUENZA Medical Ce nter VACCINE (#1)] Future Scheduled 2019-01-[address] Aruna kes - Test 00:00:00 measurement Medical Center (procedure) [code = 62951307] Future Scheduled 2003-10-[address] L ukes - Test 00:00:00 WELLNESS (YEAR 2 or Medical Center FIRST YEAR if no IPPE) [code = MEDICARE ANNUAL WELLNESS (YEAR 2 or FIRST YEAR if no IPPE)] Future Scheduled 2002 PNEUMOCOCCAL 65+ YRS [facility] - Test 00:00:00 (1 of 1 - Medical Center [id number]) [code = PNEUMOCOCCAL 65+ YRS (1 of 1 - [id number] PCV13)] Future Scheduled 1947-10-26 DIABETIC EYE EXAM [facility] - Test 00:00:00 [code = DIABETIC EYE Medical Center EXAM] Future Scheduled 1947-10-[address] [place] [facility] - Test 00:00:00 examination Medical Center (regime/therapy) [code = 068694541] Future Scheduled 1947-10-26 Urine screening for [facility] - Test 00:00:00 protein (procedure) Medical Center [code = 739569748] Encounters Start End Encounter Admission Attending Care Care Encounter Source Date/Time Date/Time Type Type Clinicians Facility Department ID 2020-07-23 2020-07-23 Outpatient STLMLC STLMLC [id number] [facility]00 [facility] l Outpati ent Clinics 2020-03-26 2020-03-26 [facility] [id number] 09:54:00 09:54:00 [employer] [place] [employer] [facility] Family Medicine l Medicine Outpati ent Clinics 2020-03-06 2020-03-06 [facility] [id number] 16:00:00 16:00:00 [facility] [place] [employer] [facility] Family Medicine l Medicine Outpati ent Clinics 2019-12-31 2019-12-31 [facility] [id number] 10:45:00 10:45:00 t [facility] [employer] [place] [employer] [facility] Medicine l Medicine Outpati ent Clinics 2019-12-13 2019-12-13 [facility] [id number] 11:17:00 11:17:00 t [facility] Medicine Outpati ent Clinics 2019-12-12 2019-12-12 [facility] [id number] 14:21:00 14:21:00 t [facility] Medicine Outpati ent Clinics 2019-03-09 2019-03-09 [facility] [id number] 10:56:00 10:56:00 t [facility] Medicine Outpati ent Clinics 2019-03-06 2019-03-06 [facility] [id number] 14:40:00 14:40:00 t [facility] Medicine Outpati ent Clinics 2019-03-05 2019-03-05 [facility] [id number] 11:21:00 11:21:00 t [facility] Medicine Outpati ent Clinics 2018-12-05 2018-12-05 [facility] [id number] 14:40:00 14:40:00 t [facility] Medicine Outpati ent Clinics 2018-09-19 2018-09-19 [facility] [id number] 09:13:00 09:13:00 t [facility] Medicine Outpati ent Clinics 2018-09-15 2018-09-15 [facility] [id number] 09:32:00 09:32:00 t [facility] Medicine Outpati ent Clinics 2018-09-14 2018-09-14 [facility] [id number] 13:30:00 13:30:00 t [facility] Medicine Outpati ent Clinics 2018-01-19 2018-01-19 [facility] [id number] 13:32:00 13:32:00 t [facility] Medicine Outpati ent Clinics 2018-01-06 2018-01-06 [facility] [id number] 11:00:00 11:00:00 [facility] Medicine [facility] Results Test Description Test Time Test Comments Results Result Comments Source POCT-GLUCOSE METER 2018-07-28 09:24:00 Test Item Value Reference Range Interpretation Comme nts POC-GLUCOSE METER (BEAKER) (test 240 mg/dL 70-110 H TESTED AT [facility] [address] [place] [address] code = 1538) [facility] 7703 0 POCT-GLUCOSE [id number] 22:22:00 Test Item Value Reference Range Interpretation Comments POC-GLUCOSE METER 157 mg/dL 70-110 H TESTED AT [facility] 6720 (BEAKER) (test code = EVELYNE Whipple [facility] 1538) [id number] POCT-GLUCOSE [id number] 17:39:00 Test Item Value Reference Range Interpretation Comments POC-GLUCOSE METER 107 mg/dL 70-110 TESTED AT [facility] 6720 (BEAKER) (test code = EVELYNE Whipple [facility] 1538) [address] POCT-GLUCOSE [id number] 16:03:00 Test Item Value Reference Range Interpretation Comments POC-GLUCOSE METER 235 mg/dL 70-110 H TESTED AT [facility] 6720 (BEAKER) (test code = EVELYNE Whipple [facility] 1538) [address] POCT-GLUCOSE [id number] 10:20:00 Test Item Value Reference Range Interpretation Comments POC-GLUCOSE METER 153 mg/dL 70-110 H TESTED AT [facility] 6720 (BEAKER) (test code = EVELYNE Whipple [facility] 1538) [id number] BASIC METABOLIC [id number] 07:01:00 Test Item Value Reference Range Interpretation Comments SODIUM (BEAKER) 141 meq/L 136-145 (test code = 381) POTASSIUM (BEAKER) 4.3 meq/L 3.5-5.1 (test code = 379) CHLORIDE (BEAKER) 104 meq/L 98-107 (test code = 382) CO2 (BEAKER) (test 29 meq/L 22-29 code = 355) BLOOD UREA NITROGEN 25 mg/dL 7-21 H (BEAKER) (test code = 354) CREATININE (BEAKER) 0.99 mg/dL 0.57-1.25 (test code = 358) GLUCOSE RANDOM 123 mg/dL 70-105 H ([facility]) (test code = 652) CALCIUM ([facility]) 9.3 mg/dL 8.4-10.2 (test code = 697) EGFR ([facility]) (test 54 mL/min/1.73 ESTIMA ABIMAEL GFR IS code = 1092) sq m NOT ACCURATE CREATININE CLEARANCE IN PREDICTING GLOMERULAR FILTRATION RATE . ESTIMATED GFR I S NOT APPLICABLE FOR DIALYSIS PATIEN TS. POCT-GLUCOSE [id number] 22:35:00 Test Item Value Reference Range Interpretation Comments POC-GLUCOSE METER 100 mg/dL 70-110 TESTED AT [place] [address] ([facility]) (test code = MIKE[employer]WON Sole [facility] 1538) [address] POCT-GLUCOSE [id number] 17:29:00 Test Item Value Reference Range Interpretation Comments POC-GLUCOSE METER 173 mg/dL 70-110 H TESTED AT [place] [address] ([facility]) (test code = MIKEANTWON Whipple [facility] 1538) [address] POCT-GLUCOSE [id number] 12:18:00 Test Item Value Reference Range Interpretation Comments POC-GLUCOSE METER 307 mg/dL 70-110 H TESTED AT [place] [address] ([facility]) (test code = [employer] [place] 1538) [address] POCT-GLUCOSE [id number] 08:59:00 Test Item Value Reference Range Interpretation Comments POC-GLUCOSE METER 127 mg/dL 70-110 H TESTED AT [place] [address] ([facility]) (test code = EVELYNE Whipple [place] 1538) [address] POCT-GLUCOSE [id number] 21:19:00 Test Item Value Reference Range Interpretation Comments POC-GLUCOSE METER 87 mg/dL 70-110 TESTED AT [place] [address] ([facility]) (test code = [place] [address] 1538) POCT-GLUCOSE [id number] 17:44:00 Test Item Value Reference Range Interpretation Comments POC-GLUCOSE METER 122 mg/dL 70-110 H TESTED AT [place] [address] ([facility]) (test code = [employer] [place] 1538) [address] POCT-GLUCOSE [id number] 12:51:00 Test Item Value Reference Range Interpretation Comments POC-GLUCOSE METER 257 mg/dL 70-110 H TESTED AT [place] [address] (BEAKER) (test code = EVELYNE Whipple [facility] 1538) [address] POCT-GLUCOSE [id number] 08:35:00 Test Item Value Reference Range Interpretation Comments POC-GLUCOSE METER 104 mg/dL 70-110 TESTED AT [facility] 6720 (BEAKER) (test code = EVELYNE Whipple [facility] 1538) [address] [id number] 06:31:00 Test Item Value Reference Range Interpretation Comments MAGNESIUM (BEAKER) (test code = 1.8 mg/dL 1.6-2.6 627) BASIC METABOLIC [id number] 06:31:00 Test Item Value Reference Range Interpretation Comments SODIUM (BEAKER) 140 meq/L 136-145 (test code = 381) POTASSIUM (BEAKER) 3.6 meq/L 3.5-5.1 (test code = 379) CHLORIDE (BEAKER) 103 meq/L 98-107 (test code = 382) CO2 (BEAKER) (test 29 meq/L 22-29 code = 355) BLOOD UREA NITROGEN 26 mg/dL 7-21 H (BEAKER) (test code = 354) CREATININE (BEAKER) 0.84 mg/dL 0.57-1.25 (test code = 358) GLUCOSE RANDOM 83 mg/dL 70-105 (BEAKER) (test code = 652) CALCIUM (BEAKER) 9.4 mg/dL 8.4-10.2 (test code = 697) EGFR (BEAKER) (test 65 mL/min/1.73 ESTIMA ABIMAEL GFR IS code = 1092) sq m NOT ACCURATE CREATININE CLEARANCE IN PREDICTING GLOMERULAR FILTRATION RATE . ESTIMATED GFR I S NOT APPLICABLE FOR DIALYSIS PATIEN TS. CBC W/PLT COUNT & AUTO [id number] 06:18:00 Test Item Value Reference Range Interpretation Comments WHITE BLOOD CELL COUNT (BEAKER) 11.9 K/ L 3.5-10.5 H (test code = 775) RED BLOOD CELL COUNT (BEAKER) 3.22 M/ L 3.93-5.22 L (test code = 761) HEMOGLOBIN (BEAKER) (test code = 9.5 GM/DL 11.2-15.7 L 410) HEMATOCRIT (BEAKER) (test code = 30.5 % 34.1-44.9 L 411) MEAN CORPUSCULAR VOLUME (BEAKER) 94.7 fL 79.4-94.8 (test code = 753) MEAN CORPUSCULAR HEMOGLOBIN 29.5 pg 25.6-32.2 (BEAKER) (test code = 751) MEAN CORPUSCULAR HEMOGLOBIN CONC 31.1 GM/DL 32.2-35.5 L (BEAKER) (test code = 752) RED CELL DISTRIBUTION WIDTH 13.2 % 11.7-14.4 (BEAKER) (test code = 412) PLATELET COUNT (BEAKER) (test 308 K/CU MM 150-450 code = 756) MEAN PLATELET VOLUME (BEAKER) 10.5 fL 9.4-12.3 (test code = 754) NUCLEATED RED BLOOD CELLS 0 /100 WBC 0-0 (BEAKER) (test code = 413) NEUTROPHILS RELATIVE PERCENT 59 % (BEAKER) (test code = 429) LYMPHOCYTES RELATIVE PERCENT 26 % (BEAKER) (test code = 430) MONOCYTES RELATIVE PERCENT 11 % (BEAKER) (test code = 431) EOSINOPHILS RELATIVE PERCENT 3 % (BEAKER) (test code = 432) BASOPHILS RELATIVE PERCENT 1 % (BEAKER) (test code = 437) NEUTROPHILS ABSOLUTE COUNT 7.05 K/ L 1.56-6.13 H (BEAKER) (test code = 670) LYMPHOCYTES ABSOLUTE COUNT 3.04 K/ L 1.18-3.74 (BEAKER) (test code = 414) MONOCYTES ABSOLUTE COUNT (BEAKER) 1.28 K/ L 0.24-0.36 H (test code = 415) EOSINOPHILS ABSOLUTE COUNT 0.36 K/ L 0.04-0.36 (BEAKER) (test code = 416) BASOPHILS ABSOLUTE COUNT (BEAKER) 0.08 K/ L 0.01-0.08 (test code = 417) IMMATURE GRANULOCYTES-RELATIVE 1 % 0-1 PERCENT (BEAKER) (test code = 2801) POCT-GLUCOSE [id number] 21:52:00 Test Item Value Reference Range Interpretation Comments POC-GLUCOSE METER 124 mg/dL 70-110 H TESTED AT [facility] 67 ([facility]) (test code = EVELYNE MELGAR 1538) [address] POCT-GLUCOSE [id number] 16:56:00 Test Item Value Reference Range Interpretation Comments POC-GLUCOSE METER 73 mg/dL 70-110 TESTED AT [facility] 6720 (BEAKER) (test code = [facility] Sole [facility] [address] 1538) POCT-GLUCOSE [id number] 12:58:00 Test Item Value Reference Range Interpretation Comments POC-GLUCOSE METER 188 mg/dL 70-110 H TESTED AT [facility] 6720 (BEAKER) (test code = [facility] 1538) [id number] POCT-GLUCOSE [id number] 08:13:00 Test Item Value Reference Range Interpretation Comments POC-GLUCOSE METER 170 mg/dL 70-110 H TESTED AT [place] [address] (BEAKER) (test code = [facility] 1538) [address] [id number] 06:11:00 Test Item Value Reference Range Interpretation Comments MAGNESIUM (BEAKER) (test code = 1.8 mg/dL 1.6-2.6 627) BASIC METABOLIC [id number] 06:11:00 Test Item Value Reference Range Interpretation Comments SODIUM (BEAKER) 141 meq/L 136-145 (test code = 381) POTASSIUM (BEAKER) 3.7 meq/L 3.5-5.1 (test code = 379) CHLORIDE (BEAKER) 105 meq/L 98-107 (test code = 382) CO2 (BEAKER) (test 27 meq/L 22-29 code = 355) BLOOD UREA NITROGEN 26 mg/dL 7-21 H (BEAKER) (test code = 354) CREATININE (BEAKER) 0.82 mg/dL 0.57-1.25 (test code = 358) GLUCOSE RANDOM 113 mg/dL 70-105 H (BEAKER) (test code = 652) CALCIUM (BEAKER) 9.4 mg/dL 8.4-10.2 (test code = 697) EGFR (BEAKER) (test 67 mL/min/1.73 ESTIMA ABIMAEL GFR IS code = 1092) sq m NOT ACCURATE CREATININE CLEARANCE IN PREDICTING GLOMERULAR FILTRATION RATE . ESTIMATED GFR I S NOT APPLICABLE FOR DIALYSIS PATIEN TS. CBC W/PLT COUNT & AUTO [id number] 05:49:00 Test Item Value Reference Range Interpretation Comments WHITE BLOOD CELL COUNT (BEAKER) 12.4 K/ L 3.5-10.5 H (test code = 775) RED BLOOD CELL COUNT (BEAKER) 3.31 M/ L 3.93-5.22 L (test code = 761) HEMOGLOBIN (BEAKER) (test code = 9.9 GM/DL 11.2-15.7 L 410) HEMATOCRIT (BEAKER) (test code = 31.8 % 34.1-44.9 L 411) MEAN CORPUSCULAR VOLUME (BEAKER) 96.1 fL 79.4-94.8 H (test code = 753) MEAN CORPUSCULAR HEMOGLOBIN 29.9 pg 25.6-32.2 (BEAKER) (test code = 751) MEAN CORPUSCULAR HEMOGLOBIN CONC 31.1 GM/DL 32.2-35.5 L (BEAKER) (test code = 752) RED CELL DISTRIBUTION WIDTH 13.0 % 11.7-14.4 (BEAKER) (test code = 412) PLATELET COUNT (BEAKER) (test 248 K/CU MM 150-450 code = 756) MEAN PLATELET VOLUME (BEAKER) 11.9 fL 9.4-12.3 (test code = 754) NUCLEATED RED BLOOD CELLS 0 /100 WBC 0-0 (BEAKER) (test code = 413) NEUTROPHILS RELATIVE PERCENT 62 % (BEAKER) (test code = 429) LYMPHOCYTES RELATIVE PERCENT 23 % (BEAKER) (test code = 430) MONOCYTES RELATIVE PERCENT 10 % (BEAKER) (test code = 431) EOSINOPHILS RELATIVE PERCENT 4 % (BEAKER) (test code = 432) BASOPHILS RELATIVE PERCENT 1 % (BEAKER) (test code = 437) NEUTROPHILS ABSOLUTE COUNT 7.67 K/ L 1.56-6.13 H (BEAKER) (test code = 670) LYMPHOCYTES ABSOLUTE COUNT 2.89 K/ L 1.18-3.74 (BEAKER) (test code = 414) MONOCYTES ABSOLUTE COUNT (BEAKER) 1.26 K/ L 0.24-0.36 H (test code = 415) EOSINOPHILS ABSOLUTE COUNT 0.45 K/ L 0.04-0.36 H (BEAKER) (test code = 416) BASOPHILS ABSOLUTE COUNT (BEAKER) 0.06 K/ L 0.01-0.08 (test code = 417) IMMATURE GRANULOCYTES-RELATIVE 1 % 0-1 PERCENT (BEAKER) (test code = 2801) POCT-GLUCOSE [id number] 20:43:00 Test Item Value Reference Range Interpretation Comments POC-GLUCOSE METER 222 mg/dL 70-110 H TESTED AT [facility] 6720 ([facility]) (test code = EVELYNE Whipple [facility] 1538) [id number] POCT-GLUCOSE [id number] 17:07:00 Test Item Value Reference Range Interpretation Comments POC-GLUCOSE METER 333 mg/dL 70-110 H Notified Sole Rdz MD/TESTED ([facility]) (test code = AT [facility] [address] [place] 1538) [facility] 7703 0 POCT-GLUCOSE [id number] 12:58:00 Test Item Value Reference Range Interpretation Comments POC-GLUCOSE METER 332 mg/dL 70-110 H TESTED AT [place] [id number] ([facility]) (test code = EVELYNE Whipple [facility] 1538) [address] RAD, CHEST, 1 VIEW, NON [id number] 10:44:00Reason for exam:->s/p CABGShould this be performed at the bedside?->YesFINAL REPORT Chest, one view. HISTORY: Status post CABG COMPARISON: Radiograph from 07/22/2018 IMPRESSION: Interval removal of the left chest tube. The left apical pneumothorax has decreased in size with only trace residual. Unchanged left basilar subsegmental atelectasis and small left pleural effusion. The small right pleural effusion has decreased in size. The cardiac silhouette is unchanged. Prior median sternotomy. Signed: Kayden Barros Verified Date/Time: 07/23/2018 10:44:04 Reading Location: [address] Body Reading Room -GLUCOSE [id number] 09:14:00 Test Item Value Reference Range Interpretation Comments POC-GLUCOSE METER 261 mg/dL 70-110 H TESTED AT [facility] 6720 ([facility]) (test code = [facility] 1538) [address] CBC W/PLT COUNT & AUTO [id number] 06:51:00 Test Item Value Reference Range Interpretation Comments WHITE BLOOD CELL COUNT ([facility]) 12.9 K/ L 3.5-10.5 H (test code = 775) RED BLOOD CELL COUNT ([facility] [facility]) 3.40 M/ L 3.93-5.22 L (test code = 761) HEMOGLOBIN (BEAKER) (test code = 10.0 GM/DL 11.2-15.7 L 410) HEMATOCRIT (BEAKER) (test code = 32.9 % 34.1-44.9 L 411) MEAN CORPUSCULAR VOLUME (BEAKER) 96.8 fL 79.4-94.8 H (test code = 753) MEAN CORPUSCULAR HEMOGLOBIN 29.4 pg 25.6-32.2 (BEAKER) (test code = 751) MEAN CORPUSCULAR HEMOGLOBIN CONC 30.4 GM/DL 32.2-35.5 L (BEAKER) (test code = 752) RED CELL DISTRIBUTION WIDTH 13.2 % 11.7-14.4 (BEAKER) (test code = 412) PLATELET COUNT (BEAKER) (test 227 K/CU MM 150-450 code = 756) MEAN PLATELET VOLUME (BEAKER) 11.0 fL 9.4-12.3 (test code = 754) NUCLEATED RED BLOOD CELLS 0 /100 WBC 0-0 (BEAKER) (test code = 413) NEUTROPHILS RELATIVE PERCENT 65 % (BEAKER) (test code = 429) LYMPHOCYTES RELATIVE PERCENT 20 % (BEAKER) (test code = 430) MONOCYTES RELATIVE PERCENT 11 % (BEAKER) (test code = 431) EOSINOPHILS RELATIVE PERCENT 3 % (BEAKER) (test code = 432) BASOPHILS RELATIVE PERCENT 1 % (BEAKER) (test code = 437) NEUTROPHILS ABSOLUTE COUNT 8.38 K/ L 1.56-6.13 H (BEAKER) (test code = 670) LYMPHOCYTES ABSOLUTE COUNT 2.55 K/ L 1.18-3.74 (BEAKER) (test code = 414) MONOCYTES ABSOLUTE COUNT (BEAKER) 1.44 K/ L 0.24-0.36 H (test code = 415) EOSINOPHILS ABSOLUTE COUNT 0.37 K/ L 0.04-0.36 H (BEAKER) (test code = 416) BASOPHILS ABSOLUTE COUNT (BEAKER) 0.06 K/ L 0.01-0.08 (test code = 417) IMMATURE GRANULOCYTES-RELATIVE 1 % 0-1 PERCENT (BEAKER) (test code = 2801) [id number] 06:30:00 Test Item Value Reference Range Interpretation Comments MAGNESIUM (BEAKER) (test code = 1.8 mg/dL 1.6-2.6 627) BASIC METABOLIC [id number] 06:30:00 Test Item Value Reference Range Interpretation Comments SODIUM (BEAKER) 140 meq/L 136-145 (test code = 381) POTASSIUM (BEAKER) 4.3 meq/L 3.5-5.1 (test code = 379) CHLORIDE (BEAKER) 107 meq/L 98-107 (test code = 382) CO2 (BEAKER) (test 25 meq/L 22-29 code = 355) BLOOD UREA NITROGEN 22 mg/dL 7-21 H (BEAKER) (test code = 354) CREATININE (BEAKER) 0.83 mg/dL 0.57-1.25 (test code = 358) GLUCOSE RANDOM 236 mg/dL 70-105 H (BEAKER) (test code = 652) CALCIUM (BEAKER) 8.9 mg/dL 8.4-10.2 (test code = 697) EGFR (BEAKER) (test 66 mL/min/1.73 ESTIMA ABIMAEL GFR IS code = 1092) sq m NOT ACCURATE CREATININE CLEARANCE IN PREDICTING GLOMERULAR FILTRATION RATE . ESTIMATED GFR I S NOT APPLICABLE FOR DIALYSIS PATIEN TS. POCT-GLUCOSE [id number] 18:29:00 Test Item Value Reference Range Interpretation Comments POC-GLUCOSE METER 239 mg/dL 70-110 H TESTED AT [place] [address] ([facility]) (test code = [facility] 1538) [address] POCT-GLUCOSE [id number] 11:41:00 Test Item Value Reference Range Interpretation Comments POC-GLUCOSE METER 261 mg/dL 70-110 H TESTED AT [place] [address] ([facility]) (test code = [facility] 1538) [id number] POCT-GLUCOSE [id number] 08:31:00 Test Item Value Reference Range Interpretation Comments POC-GLUCOSE METER 279 mg/dL 70-110 H TESTED AT [place] [address] ([facility]) (test code = [facility] 1538) [address] CALCIUM, [id number] 04:40:00 Test Item Value Reference Range Interpretation Comments CALCIUM IONIZED (BEAKER) (test 1.09 mmol/L 1.12-1.27 L code = 698) PH, BLOOD (BEAKER) (test code = 7.39 1810) [id number] 04:38:00 Test Item Value Reference Range Interpretation Comments POTASSIUM (BEAKER) (test code = 4.2 meq/L 3.5-5.1 379) [id number] 04:38:00 Test Item Value Reference Range Interpretation Comments MAGNESIUM (BEAKER) (test code = 1.8 mg/dL 1.6-2.6 627) [id number] 04:38:00 Test Item Value Reference Range Interpretation Comments PHOSPHORUS (BEAKER) (test code = 2.2 mg/dL 2.3-4.7 L 604) [id number] 04:38:00 Test Item Value Reference Range Interpretation Comments GLUCOSE RANDOM (BEAKER) (test code 256 mg/dL 70-105 H = 652) BASIC METABOLIC [id number] 04:38:00 Test Item Value Reference Range Interpretation Comments SODIUM (BEAKER) 137 meq/L 136-145 (test code = 381) POTASSIUM (BEAKER) 4.2 meq/L 3.5-5.1 (test code = 379) CHLORIDE (BEAKER) 107 meq/L 98-107 (test code = 382) CO2 (BEAKER) (test 25 meq/L 22-29 code = 355) BLOOD UREA NITROGEN 16 mg/dL 7-21 (BEAKER) (test code = 354) CREATININE (BEAKER) 0.73 mg/dL 0.57-1.25 (test code = 358) GLUCOSE RANDOM 256 mg/dL 70-105 H (BEAKER) (test code = 652) CALCIUM (BEAKER) 8.3 mg/dL 8.4-10.2 L (test code = 697) EGFR (BEAKER) (test 77 mL/min/1.73 ESTIMA ABIMAEL GFR IS code = 1092) sq m NOT ACCURATE CREATININE CLEARANCE IN PREDICTING GLOMERULAR FILTRATION RATE . ESTIMATED GFR I S NOT APPLICABLE FOR DIALYSIS PATIEN TS. CBC W/PLT COUNT & AUTO [id number] 04:15:00 Test Item Value Reference Range Interpretation Comments WHITE BLOOD CELL COUNT (BEAKER) 13.0 K/ L 3.5-10.5 H (test code = 775) RED BLOOD CELL COUNT (BEAKER) 3.01 M/ L 3.93-5.22 L (test code = 761) HEMOGLOBIN (BEAKER) (test code = 8.9 GM/DL 11.2-15.7 L 410) HEMATOCRIT (BEAKER) (test code = 28.7 % 34.1-44.9 L 411) MEAN CORPUSCULAR VOLUME (BEAKER) 95.3 fL 79.4-94.8 H (test code = 753) MEAN CORPUSCULAR HEMOGLOBIN 29.6 pg 25.6-32.2 (BEAKER) (test code = 751) MEAN CORPUSCULAR HEMOGLOBIN CONC 31.0 GM/DL 32.2-35.5 L (BEAKER) (test code = 752) RED CELL DISTRIBUTION WIDTH 13.2 % 11.7-14.4 (BEAKER) (test code = 412) PLATELET COUNT (BEAKER) (test 180 K/CU MM 150-450 code = 756) MEAN PLATELET VOLUME (BEAKER) 10.7 fL 9.4-12.3 (test code = 754) NUCLEATED RED BLOOD CELLS 0 /100 WBC 0-0 (BEAKER) (test code = 413) NEUTROPHILS RELATIVE PERCENT 75 % (BEAKER) (test code = 429) LYMPHOCYTES RELATIVE PERCENT 12 % (BEAKER) (test code = 430) MONOCYTES RELATIVE PERCENT 11 % (BEAKER) (test code = 431) EOSINOPHILS RELATIVE PERCENT 1 % (BEAKER) (test code = 432) BASOPHILS RELATIVE PERCENT 0 % (BEAKER) (test code = 437) NEUTROPHILS ABSOLUTE COUNT 9.69 K/ L 1.56-6.13 H (BEAKER) (test code = 670) LYMPHOCYTES ABSOLUTE COUNT 1.59 K/ L 1.18-3.74 (BEAKER) (test code = 414) MONOCYTES ABSOLUTE COUNT (BEAKER) 1.43 K/ L 0.24-0.36 H (test code = 415) EOSINOPHILS ABSOLUTE COUNT 0.14 K/ L 0.04-0.36 (BEAKER) (test code = 416) BASOPHILS ABSOLUTE COUNT (BEAKER) 0.03 K/ L 0.01-0.08 (test code = 417) IMMATURE GRANULOCYTES-RELATIVE 1 % 0-1 PERCENT (BEAKER) (test code = 2801) CBC (HEMOGRAM ONLY)2018-07-22 04:01:00 Test Item Value Reference Range Interpretation Comments WHITE BLOOD CELL COUNT (BEAKER) 13.0 K/ L 3.5-10.5 H (test code = 775) RED BLOOD CELL COUNT (BEAKER) 3.01 M/ L 3.93-5.22 L (test code = 761) HEMOGLOBIN (BEAKER) (test code = 8.9 GM/DL 11.2-15.7 L 410) HEMATOCRIT (BEAKER) (test code = 28.7 % 34.1-44.9 L 411) MEAN CORPUSCULAR VOLUME (BEAKER) 95.3 fL 79.4-94.8 H (test code = 753) MEAN CORPUSCULAR HEMOGLOBIN 29.6 pg 25.6-32.2 (BEAKER) (test code = 751) MEAN CORPUSCULAR HEMOGLOBIN CONC 31.0 GM/DL 32.2-35.5 L (BEAKER) (test code = 752) RED CELL DISTRIBUTION WIDTH 13.2 % 11.7-14.4 (BEAKER) (test code = 412) PLATELET COUNT (BEAKER) (test 180 K/CU MM 150-450 code = 756) MEAN PLATELET VOLUME (BEAKER) 10.7 fL 9.4-12.3 (test code = 754) NUCLEATED RED BLOOD CELLS 0 /100 WBC 0-0 (BEAKER) (test code = 413) RAD, CHEST, 1 VIEW, NON [id number] 03:37:00while patient is intubated or has chest tubes.Reason for exam:->s/p CABGShould this be performed at the bedside?->YesFINAL REPORT RAD, CHEST, 1 VIEW, NON DEPT INDICATION: s/p CABG COMPARISON: Prior day's exam FINDINGS: Portable frontal view of the chest. IMPRESSION: Support Lines: Stable. Lungs and pleura: Unchanged airspace and pleural opacities. Small left apical pneumothorax.Heart and mediastinum: Stable contours. Stable surgical changes.Additional findings: None. Signed: Jona Lanceeptunde Verified Date/Time: 07/22/2018 03:37:19 Reading Location: [address] Transitional Reading Room -GLUCOSE [id number] 02:38:00 Test Item Value Reference Range Interpretation Comments POC-GLUCOSE METER 235 mg/dL 70-110 H TESTED AT [facility] 6720 (BEAKER) (test code = [facility] 1538) [id number] POCT-GLUCOSE [id number] 18:04:00 Test Item Value Reference Range Interpretation Comments POC-GLUCOSE METER 310 mg/dL 70-110 H TESTED AT [place] [address] ([facility]) (test code = [facility] 1538) [address] POCT-GLUCOSE [id number] 16:56:00 Test Item Value Reference Range Interpretation Comments POC-GLUCOSE METER 306 mg/dL 70-110 H Will Repea t Test/TESTED ([facility]) (test code = AT [address] 15[address]) [place] [address] POCT-GLUCOSE [id number] 16:49:00 Test Item Value Reference Range Interpretation Comments POC-GLUCOSE METER 124 mg/dL 70-110 H TESTED AT [place] [address] ([facility]) (test code = [facility] 1538) [address] BLOOD GAS, [id number] 16:30:00 Test Item Value Reference Range Interpretation Comments PH ARTERIAL (BEAKER) (test code = 7.47 7.35-7.45 H 383) PCO2 ARTERIAL (BEAKER) (test code 33 mmHg 35-45 L = 384) PO2 ARTERIAL (BEAKER) (test code 71 mmHg 80-90 L = 385) O2 SATURATION ARTERIAL (BEAKER) 95.3 % 96.0-97.0 L (test code = 386) HCO3 ARTERIAL (BEAKER) (test code 23 mmol/L 21-29 = 388) BASE EXCESS ARTERIAL (BEAKER) -0.1 mmol/L -2.0-3.0 (test code = 387) PATIENT TEMPERATURE (BEAKER) 36.9 C (test code = 1818) FIO2 (BEAKER) (test code = 1819) 50.0 % POCT-GLUCOSE [id number] 09:31:00 Test Item Value Reference Range Interpretation Comments POC-GLUCOSE METER 123 mg/dL 70-110 H TESTED AT [place] [address] ([facility]) (test code = [facility] 1538) [id number] POCT-GLUCOSE [id number] 08:24:00 Test Item Value Reference Range Interpretation Comments POC-GLUCOSE METER 113 mg/dL 70-110 H TESTED AT [place] [address] ([facility]) (test code = [facility] 1538) [address] POCT-GLUCOSE [id number] 07:14:00 Test Item Value Reference Range Interpretation Comments POC-GLUCOSE METER 124 mg/dL 70-110 H TESTED AT [facility] 6720 (BEAKER) (test code = [facility] 1538) [address] POCT-GLUCOSE [id number] 04:06:00 Test Item Value Reference Range Interpretation Comments POC-GLUCOSE METER 95 mg/dL 70-110 TESTED AT [facility] 6720 (BEAKER) (test code = [facility] [address] 1538) BASIC METABOLIC [id number] 03:43:00 Test Item Value Reference Range Interpretation Comments SODIUM (BEAKER) 141 meq/L 136-145 (test code = 381) POTASSIUM (BEAKER) 4.2 meq/L 3.5-5.1 (test code = 379) CHLORIDE (BEAKER) 111 meq/L 98-107 H (test code = 382) CO2 (BEAKER) (test 23 meq/L 22-29 code = 355) BLOOD UREA NITROGEN 16 mg/dL 7-21 (BEAKER) (test code = 354) CREATININE (BEAKER) 0.71 mg/dL 0.57-1.25 (test code = 358) GLUCOSE RANDOM 110 mg/dL 70-105 H (BEAKER) (test code = 652) CALCIUM (BEAKER) 8.3 mg/dL 8.4-10.2 L (test code = 697) EGFR (BEAKER) (test 79 mL/min/1.73 ESTIMA ABIMAEL GFR IS code = 1092) sq m NOT ACCURATE CREATININE CLEARANCE IN PREDICTING GLOMERULAR FILTRATION RATE . ESTIMATED GFR I S NOT APPLICABLE FOR DIALYSIS PATIEN TS. [id number] 03:40:00 Test Item Value Reference Range Interpretation Comments PHOSPHORUS (BEAKER) (test code = 3.0 mg/dL 2.3-4.7 604) [id number] 03:40:00 Test Item Value Reference Range Interpretation Comments MAGNESIUM (BEAKER) (test code = 2.0 mg/dL 1.6-2.6 627) RAD, CHEST, 1 VIEW, NON [id number] 03:18:00while patient is intubated or has chest tubes.Reason for exam:->s/p CABGShould this be performed at the bedside?->YesFINAL REPORT RAD, CHEST, 1 VIEW, NON DEPT INDICATION: s/p CABG COMPARISON: Prior day's exam FINDINGS: Portable frontal view of the chest. IMPRESSION: Support Lines: Interval extubation and removal of the previously seen enteric tube. Otherwise unchanged support apparatus. Lung s and pleura: Decreased lung volumes with increased bibasilar heterogeneous airspace opacities whichmay represent atelectasis however superimposed infection, similar in appearance. Increased interstitial lung markings favored to be related to technique. Small left pleural effusion. No pneumothorax.Heart and mediastinum: Stable contours. Stable surgical changes.Additional findings: None. Signed: Jona Lance Verified Date/Time: 07/21/2018 03:18:23 Reading Location: [address] Transitional Reading Room CBC (HEMOGRAM ONLY)2018-07-21 02:41:00 Test Item Value Reference Range Interpretation Comments WHITE BLOOD CELL COUNT (BEAKER) 12.3 K/ L 3.5-10.5 H (test code = 775) RED BLOOD CELL COUNT (BEAKER) 3.07 M/ L 3.93-5.22 L (test code = 761) HEMOGLOBIN (BEAKER) (test code = 9.2 GM/DL 11.2-15.7 L 410) HEMATOCRIT (BEAKER) (test code = 29.0 % 34.1-44.9 L 411) MEAN CORPUSCULAR VOLUME (BEAKER) 94.5 fL 79.4-94.8 (test code = 753) MEAN CORPUSCULAR HEMOGLOBIN 30.0 pg 25.6-32.2 (BEAKER) (test code = 751) MEAN CORPUSCULAR HEMOGLOBIN CONC 31.7 GM/DL 32.2-35.5 L (BEAKER) (test code = 752) RED CELL DISTRIBUTION WIDTH 12.9 % 11.7-14.4 (BEAKER) (test code = 412) PLATELET COUNT (BEAKER) (test 191 K/CU MM 150-450 code = 756) MEAN PLATELET VOLUME (BEAKER) 10.9 fL 9.4-12.3 (test code = 754) NUCLEATED RED BLOOD CELLS 0 /100 WBC 0-0 (BEAKER) (test code = 413) POCT-GLUCOSE [id number] 02:40:00 Test Item Value Reference Range Interpretation Comments POC-GLUCOSE METER 124 mg/dL 70-110 H TESTED AT [place] [address] (BEAKER) (test code = [facility] 1538) [address] CALCIUM, [id number] 02:37:00 Test Item Value Reference Range Interpretation Comments CALCIUM IONIZED (BEAKER) (test 1.12 mmol/L 1.12-1.27 code = 698) PH, BLOOD (BEAKER) (test code = 7.45 1810) BLOOD GAS, [id number] 02:35:00 Test Item Value Reference Range Interpretation Comments PH ARTERIAL (BEAKER) (test code = 7.44 7.35-7.45 383) PCO2 ARTERIAL (BEAKER) (test code 38 mmHg 35-45 = 384) PO2 ARTERIAL (BEAKER) (test code = 83 mmHg 80-90 385) O2 SATURATION ARTERIAL (BEAKER) 96.5 % 96.0-97.0 (test code = 386) HCO3 ARTERIAL (BEAKER) (test code 26 mmol/L 21-29 = 388) BASE EXCESS ARTERIAL (BEAKER) 1.6 mmol/L -2.0-3.0 (test code = 387) PATIENT TEMPERATURE (BEAKER) (test 37.2 C code = 1818) FIO2 (BEAKER) (test code = 1819) 60.0 % POCT-GLUCOSE [id number] 01:56:00 Test Item Value Reference Range Interpretation Comments POC-GLUCOSE METER 131 mg/dL 70-110 H TESTED AT [place] [address] (BEAKER) (test code = [facility] 1538) [address] POCT-GLUCOSE [id number] 23:07:00 Test Item Value Reference Range Interpretation Comments POC-GLUCOSE METER 125 mg/dL 70-110 H TESTED AT [place] [address] (BEAKER) (test code = [facility] 1538) [address] POCT-GLUCOSE [id number] 22:07:00 Test Item Value Reference Range Interpretation Comments POC-GLUCOSE METER 131 mg/dL 70-110 H TESTED AT [place] [address] (BEAKER) (test code = [facility] 1538) [address] BLOOD GAS, [id number] 19:59:00 Test Item Value Reference Range Interpretation Comments PH ARTERIAL (BEAKER) (test code = 7.42 7.35-7.45 383) PCO2 ARTERIAL (BEAKER) (test code 42 mmHg 35-45 = 384) PO2 ARTERIAL (BEAKER) (test code = 67 mmHg 80-90 L 385) O2 SATURATION ARTERIAL (BEAKER) 93.7 % 96.0-97.0 L (test code = 386) HCO3 ARTERIAL (BEAKER) (test code 27 mmol/L 21-29 = 388) BASE EXCESS ARTERIAL (BEAKER) 1.9 mmol/L -2.0-3.0 (test code = 387) PATIENT TEMPERATURE (BEAKER) (test 36.8 C code = 1818) FIO2 (BEAKER) (test code = 1819) 36.0 % HEMOGLOBIN AND [id number] 19:58:00 Test Item Value Reference Range Interpretation Comments HEMOGLOBIN (BEAKER) (test code = 9.5 GM/DL 11.2-15.7 L 410) HEMATOCRIT (BEAKER) (test code = 29.8 % 34.1-44.9 L 411) BLOOD GAS, [id number] 18:47:00 Test Item Value Reference Range Interpretation Comments PH ARTERIAL (BEAKER) (test code = 7.43 7.35-7.45 383) PCO2 ARTERIAL (BEAKER) (test code 36 mmHg 35-45 = 384) PO2 ARTERIAL (BEAKER) (test code 75 mmHg 80-90 L = 385) O2 SATURATION ARTERIAL (BEAKER) 95.8 % 96.0-97.0 L (test code = 386) HCO3 ARTERIAL (BEAKER) (test code 24 mmol/L 21-29 = 388) BASE EXCESS ARTERIAL (BEAKER) -0.4 mmol/L -2.0-3.0 (test code = 387) PATIENT TEMPERATURE (BEAKER) 36.5 C (test code = 1818) FIO2 (BEAKER) (test code = 1819) 40.0 % BLOOD GAS, [id number] 18:32:00 Test Item Value Reference Range Interpretation Comments PH ARTERIAL (BEAKER) (test code = 7.42 7.35-7.45 383) PCO2 ARTERIAL (BEAKER) (test code 39 mmHg 35-45 = 384) PO2 ARTERIAL (BEAKER) (test code = 81 mmHg 80-90 385) O2 SATURATION ARTERIAL (BEAKER) 96.4 % 96.0-97.0 (test code = 386) HCO3 ARTERIAL (BEAKER) (test code 25 mmol/L 21-29 = 388) BASE EXCESS ARTERIAL (BEAKER) 0.5 mmol/L -2.0-3.0 (test code = 387) PATIENT TEMPERATURE (BEAKER) (test 36.5 C code = 1818) FIO2 (BEAKER) (test code = 1819) 45.0 % POCT-GLUCOSE [id number] 18:22:00 Test Item Value Reference Range Interpretation Comments POC-GLUCOSE METER 171 mg/dL 70-110 H TESTED AT [place] [address] (BEAKER) (test code = [facility] 1538) [address] [id number] 17:51:00 Test Item Value Reference Range Interpretation Comments POTASSIUM (BEAKER) (test code = 4.2 meq/L 3.5-5.1 379) [id number] 17:51:00 Test Item Value Reference Range Interpretation Comments MAGNESIUM (BEAKER) (test code = 2.2 mg/dL 1.6-2.6 627) BLOOD GAS, [id number] 16:56:00 Test Item Value Reference Range Interpretation Comments PH ARTERIAL (BEAKER) (test code = 7.40 7.35-7.45 383) PCO2 ARTERIAL (BEAKER) (test code 40 mmHg 35-45 = 384) PO2 ARTERIAL (BEAKER) (test code 108 mmHg 80-90 H = 385) O2 SATURATION ARTERIAL (BEAKER) 98.1 % 96.0-97.0 H (test code = 386) HCO3 ARTERIAL (BEAKER) (test code 25 mmol/L 21-29 = 388) BASE EXCESS ARTERIAL (BEAKER) -0.3 mmol/L -2.0-3.0 (test code = 387) PATIENT TEMPERATURE (BEAKER) 36.3 C (test code = 1818) FIO2 (BEAKER) (test code = 1819) 70.0 % POCT-GLUCOSE [id number] 16:55:00 Test Item Value Reference Range Interpretation Comments POC-GLUCOSE METER 174 mg/dL 70-110 H TESTED AT [facility] 6720 (BEAKER) (test code = [facility] 1538) [address] POCT-GLUCOSE [id number] 15:47:00 Test Item Value Reference Range Interpretation Comments POC-GLUCOSE METER 174 mg/dL 70-110 H TESTED AT [facility] 6720 ([place]) (test code = [facility] [place] 1538) [address] RAD, CHEST, 1 VIEW, NON [id number] 14:59:00Reason for exam:->s/p CABGShould this be performed at the bedside?->YesFINAL REPORT TECHNIQUE: Frontal chest radiograph dated 07/20/2018. CLINICAL HISTORY: S/P CABG COMPARISON STUDY: Chest radiograph performed today IMPRESSION:Endotracheal tube is 4.8 cm above the brent. Right-sided central vascular line projects over the region of the superior vena cava. Enteric tube is seen with the tip in the region of the gastric fundus. Mediastinal and left-s ided chest tube are in place. Atelectasis is seen in the lung bases. Prominent interstitial lung markings likely representing interstitial edema. No pleural effusion or pneumothorax. Cardiomediastinal silhouette is normal in size. No pulmonary edema. Midline sternotomy wires are intact and well aligned. Bones are osteopenic. Signed: Meng Kendrick Verified Date/Time: 07/20/2018 14:59:20Reading Location: [facility] Radiology Reading Room [id number] 14:53:00 Test Item Value Reference Range Interpretation Comments PROTIME ([facility]) (test code = 17.8 seconds 11.7-14.7 H 759) INR (THERON) (test code = 370) 1.5 <=5.9 PARTIAL THROMBOPLASTIN TIME 33.7 seconds 22.5-36.0 (THERON) (test code = 760) RECOMMENDED COUMADIN/WARFARIN INR THERAPY RANGESSTANDARD DOSE: 2.0 - 3.0 Includes: PROPHYLAXIS forvenous thrombosis, systemic embolization; TREATMENT for venous thrombosis and/or pulmonary embolus.HIGH RISK: Target INR is 2.5-3.5 for patients with mechanical heart valves.PROTHROMBIN [id number] 14:52:00 Test Item Value Reference Range Interpretation Comments PROTIME (BEAKER) (test code = 17.8 seconds 11.7-14.7 H 759) INR (BEAKER) (test code = 370) 1.5 <=5.9 RECOMMENDED COUMADIN/WARFARIN INR THERAPY RANGESSTANDARD DOSE: 2.0 - 3.0 Includes: PROPHYLAXIS forvenous thrombosis, systemic embolization; TREATMENT for venous thrombosis and/or pulmonary embolus.HIGH RISK: Target INR is 2.5-3.5 for patients with mechanical heart valves.CBC W/PLT COUNT & AUTO DIFFERENTIAL 2018-07-20 14:42:00 Test Item Value Reference Range Interpretation Comments WHITE BLOOD CELL COUNT (BEAKER) 13.8 K/ L 3.5-10.5 H (test code = 775) RED BLOOD CELL COUNT (BEAKER) 3.21 M/ L 3.93-5.22 L (test code = 761) HEMOGLOBIN (BEAKER) (test code = 9.8 GM/DL 11.2-15.7 L 410) HEMATOCRIT (BEAKER) (test code = 30.5 % 34.1-44.9 L 411) MEAN CORPUSCULAR VOLUME (BEAKER) 95.0 fL 79.4-94.8 H (test code = 753) MEAN CORPUSCULAR HEMOGLOBIN 30.5 pg 25.6-32.2 (BEAKER) (test code = 751) MEAN CORPUSCULAR HEMOGLOBIN CONC 32.1 GM/DL 32.2-35.5 L (BEAKER) (test code = 752) RED CELL DISTRIBUTION WIDTH 12.5 % 11.7-14.4 (BEAKER) (test code = 412) PLATELET COUNT (BEAKER) (test 183 K/CU MM 150-450 code = 756) MEAN PLATELET VOLUME (BEAKER) 10.3 fL 9.4-12.3 (test code = 754) NUCLEATED RED BLOOD CELLS 0 /100 WBC 0-0 (BEAKER) (test code = 413) NEUTROPHILS RELATIVE PERCENT 82 % (BEAKER) (test code = 429) LYMPHOCYTES RELATIVE PERCENT 13 % (BEAKER) (test code = 430) MONOCYTES RELATIVE PERCENT 3 % (BEAKER) (test code = 431) EOSINOPHILS RELATIVE PERCENT 2 % (BEAKER) (test code = 432) BASOPHILS RELATIVE PERCENT 0 % (BEAKER) (test code = 437) NEUTROPHILS ABSOLUTE COUNT 11.24 K/ L 1.56-6.13 H (BEAKER) (test code = 670) LYMPHOCYTES ABSOLUTE COUNT 1.77 K/ L 1.18-3.74 (BEAKER) (test code = 414) MONOCYTES ABSOLUTE COUNT (BEAKER) 0.37 K/ L 0.24-0.36 H (test code = 415) EOSINOPHILS ABSOLUTE COUNT 0.22 K/ L 0.04-0.36 (BEAKER) (test code = 416) BASOPHILS ABSOLUTE COUNT (BEAKER) 0.03 K/ L 0.01-0.08 (test code = 417) IMMATURE GRANULOCYTES-RELATIVE 1 % 0-1 PERCENT (BEAKER) (test code = 2801) [id number] 14:35:00 Test Item Value Reference Range Interpretation Comments PHOSPHORUS (BEAKER) (test code = 2.2 mg/dL 2.3-4.7 L 604) [id number] 14:35:00 Test Item Value Reference Range Interpretation Comments MAGNESIUM (BEAKER) (test code = 2.9 mg/dL 1.6-2.6 H 627) BASIC METABOLIC [id number] 14:35:00 Test Item Value Reference Range Interpretation Comments SODIUM (BEAKER) 141 meq/L 136-145 (test code = 381) POTASSIUM (BEAKER) 3.8 meq/L 3.5-5.1 (test code = 379) CHLORIDE (BEAKER) 111 meq/L 98-107 H (test code = 382) CO2 (BEAKER) (test 27 meq/L 22-29 code = 355) BLOOD UREA NITROGEN 16 mg/dL 7-21 (BEAKER) (test code = 354) CREATININE (BEAKER) 0.75 mg/dL 0.57-1.25 (test code = 358) GLUCOSE RANDOM 171 mg/dL 70-105 H (BEAKER) (test code = 652) CALCIUM (BEAKER) 9.9 mg/dL 8.4-10.2 (test code = 697) EGFR (BEAKER) (test 74 mL/min/1.73 ESTIMA ABIMAEL GFR IS code = 1092) sq m NOT ACCURATE CREATININE CLEARANCE IN PREDICTING GLOMERULAR FILTRATION RATE . ESTIMATED GFR I S NOT APPLICABLE FOR DIALYSIS PATIEN TS. LACTIC ACID, ARTERIAL, WHOLE [id number] 14:31:00 Test Item Value Reference Range Interpretation Comments LACTATE BLOOD ARTERIAL (2) 1.5 mmol/L 0.5-2.2 (BEAKER) (test code = 2874) OXYGEN SATURATION, [id number] 14:11:00 Test Item Value Reference Range Interpretation Comments O2 SATURATION (MEASURED) (BEAKER) 61.8 % (test code = 1455) GLUCOSE-STAT [id number] 14:11:00 Test Item Value Reference Range Interpretation Comments GLUCOSE RANDOM (BEAKER) (test code 171 mg/dL 70-110 H = 652) HGB/HCT (H&H) - STAT [id number] 14:11:00 Test Item Value Reference Range Interpretation Comments HEMOGLOBIN (BEAKER) (test code = 10.7 g/dL 12.0-15.0 L 410) HEMATOCRIT (BEAKER) (test code = 31.0 % 36.0-45.0 L 411) BLOOD GAS, [id number] 14:11:00 Test Item Value Reference Range Interpretation Comments PH ARTERIAL (BEAKER) (test code = 7.39 7.35-7.45 383) PCO2 ARTERIAL (BEAKER) (test code 45 mmHg 35-45 = 384) PO2 ARTERIAL (BEAKER) (test code = 73 mmHg 80-90 L 385) O2 SATURATION ARTERIAL (BEAKER) 94.9 % 96.0-97.0 L (test code = 386) HCO3 ARTERIAL (BEAKER) (test code 27 mmol/L 21-29 = 388) BASE EXCESS ARTERIAL (BEAKER) 1.2 mmol/L -2.0-3.0 (test code = 387) PATIENT TEMPERATURE (BEAKER) (test 36.5 C code = 1818) FIO2 (BEAKER) (test code = 1819) 60.0 % CALCIUM, [id number] 14:10:00 Test Item Value Reference Range Interpretation Comments CALCIUM IONIZED (BEAKER) (test 1.34 mmol/L 1.12-1.27 H code = 698) PH, BLOOD (BEAKER) (test code = 7.38 1810) SODIUM NA-STAT [id number] 14:09:00 Test Item Value Reference Range Interpretation Comments SODIUM (BEAKER) (test code = 381) 140 meq/L 135-148 POTASSIUM-STAT [id number] 14:09:00 Test Item Value Reference Range Interpretation Comments POTASSIUM (BEAKER) (test code = 3.7 meq/L 3.6-5.5 379) [id number] 13:31:00 Test Item Value Reference Range Interpretation Comments ACTIVATED CLOTTING TIME 136 sec TEST ED AT [place] [address] (BEAKER) (test code = EVELYNE Whipple [place] [address]) [id number] 13:31:00 Test Item Value Reference Range Interpretation Comments ACTIVATED CLOTTING TIME 538 sec TEST ED AT [place] [address] (BEAKER) (test code = EVELYNE Whipple [place] [address]) [id number] 13:31:00 Test Item Value Reference Range Interpretation Comments ACTIVATED CLOTTING TIME 422 sec TEST ED AT [place] [address] (BEAKER) (test code = EVELYNE Whipple [place] [address]) [id number] [id number] 13:31:00 Test Item Value Reference Range Interpretation Comments ACTIVATED CLOTTING TIME 494 sec TEST ED AT [place] [address] ([facility]) (test code = EVELYNE Whipple [place] [address]) [address] CALCIUM, [id number] 12:43:00 Test Item Value Reference Range Interpretation Comments CALCIUM IONIZED (BEAKER) (test 1.34 mmol/L 1.12-1.27 H code = 698) PH, BLOOD (BEAKER) (test code = 7.40 1810) SODIUM NA-STAT [id number] 12:42:00 Test Item Value Reference Range Interpretation Comments SODIUM (BEAKER) (test code = 381) 136 meq/L 135-148 POTASSIUM-STAT [id number] 12:42:00 Test Item Value Reference Range Interpretation Comments POTASSIUM (BEAKER) (test code = 4.0 meq/L 3.6-5.5 379) BLOOD GAS, [id number] 12:42:00 Test Item Value Reference Range Interpretation Comments PH ARTERIAL (BEAKER) (test code = 7.42 7.35-7.45 383) PCO2 ARTERIAL (BEAKER) (test code 37 mmHg 35-45 = 384) PO2 ARTERIAL (BEAKER) (test code 110 mmHg 80-90 H = 385) O2 SATURATION ARTERIAL (BEAKER) 98.3 % 96.0-97.0 H (test code = 386) HCO3 ARTERIAL (BEAKER) (test code 24 mmol/L 21-29 = 388) BASE EXCESS ARTERIAL (BEAKER) -1.1 mmol/L -2.0-3.0 (test code = 387) PATIENT TEMPERATURE (BEAKER) 35.8 C (test code = 1818) FIO2 (BEAKER) (test code = 1819) 100.0 % GLUCOSE-STAT [id number] 12:42:00 Test Item Value Reference Range Interpretation Comments GLUCOSE RANDOM (BEAKER) (test code 226 mg/dL 70-110 H = 652) HGB/HCT (H&H) - STAT [id number] 12:42:00 Test Item Value Reference Range Interpretation Comments HEMOGLOBIN (BEAKER) (test code = 8.3 g/dL 12.0-15.0 L 410) HEMATOCRIT (BEAKER) (test code = 24.0 % 36.0-45.0 L 411) SODIUM NA-STAT [id number] 12:13:00 Test Item Value Reference Range Interpretation Comments SODIUM (BEAKER) (test code = 381) 135 meq/L 135-148 POTASSIUM-STAT [id number] 12:13:00 Test Item Value Reference Range Interpretation Comments POTASSIUM (BEAKER) (test code = 4.5 meq/L 3.6-5.5 379) BLOOD GAS, [id number] 12:13:00 Test Item Value Reference Range Interpretation Comments PH ARTERIAL (BEAKER) (test code = 7.39 7.35-7.45 383) PCO2 ARTERIAL (BEAKER) (test code 41 mmHg 35-45 = 384) PO2 ARTERIAL (BEAKER) (test code 259 mmHg 80-90 H = 385) O2 SATURATION ARTERIAL (BEAKER) 99.6 % 96.0-97.0 H (test code = 386) HCO3 ARTERIAL (BEAKER) (test code 25 mmol/L 21-29 = 388) BASE EXCESS ARTERIAL (BEAKER) -0.5 mmol/L -2.0-3.0 (test code = 387) PATIENT TEMPERATURE (BEAKER) 35.3 C (test code = 1818) FIO2 (BEAKER) (test code = 1819) 80.0 % GLUCOSE-STAT [id number] 12:13:00 Test Item Value Reference Range Interpretation Comments GLUCOSE RANDOM (BEAKER) (test code 241 mg/dL 70-110 H = 652) HGB/HCT (H&H) - STAT [id number] 12:13:00 Test Item Value Reference Range Interpretation Comments HEMOGLOBIN (BEAKER) (test code = 7.4 g/dL 12.0-15.0 L 410) HEMATOCRIT (BEAKER) (test code = 22.0 % 36.0-45.0 L 411) BLOOD GAS, [id number] 11:52:00 Test Item Value Reference Range Interpretation Comments PH ARTERIAL (BEAKER) (test code = 7.45 7.35-7.45 383) PCO2 ARTERIAL (BEAKER) (test code 34 mmHg 35-45 L = 384) PO2 ARTERIAL (BEAKER) (test code 354 mmHg 80-90 H = 385) O2 SATURATION ARTERIAL (BEAKER) 99.8 % 96.0-97.0 H (test code = 386) HCO3 ARTERIAL (BEAKER) (test code 25 mmol/L 21-29 = 388) BASE EXCESS ARTERIAL (BEAKER) -0.5 mmol/L -2.0-3.0 (test code = 387) PATIENT TEMPERATURE (BEAKER) 31.7 C (test code = 1818) FIO2 (BEAKER) (test code = 1819) 80.0 % GLUCOSE-STAT [id number] 11:52:00 Test Item Value Reference Range Interpretation Comments GLUCOSE RANDOM (BEAKER) (test code 285 mg/dL 70-110 H = 652) SODIUM NA-STAT [id number] 11:52:00 Test Item Value Reference Range Interpretation Comments SODIUM (BEAKER) (test code = 381) 133 meq/L 135-148 L HGB/HCT (H&H) - STAT [id number] 11:52:00 Test Item Value Reference Range Interpretation Comments HEMOGLOBIN (BEAKER) (test code = 7.7 g/dL 12.0-15.0 L 410) HEMATOCRIT (BEAKER) (test code = 23.0 % 36.0-45.0 L 411) POTASSIUM-STAT [id number] 11:51:00 Test Item Value Reference Range Interpretation Comments POTASSIUM (BEAKER) (test code = 5.1 meq/L 3.6-5.5 379) BLOOD GAS, [id number] 10:49:00 Test Item Value Reference Range Interpretation Comments PH ARTERIAL (BEAKER) (test code = 7.46 7.35-7.45 H 383) PCO2 ARTERIAL (BEAKER) (test code 34 mmHg 35-45 L = 384) PO2 ARTERIAL (BEAKER) (test code = 121 mmHg 80-90 H 385) O2 SATURATION ARTERIAL (BEAKER) 98.7 % 96.0-97.0 H (test code = 386) HCO3 ARTERIAL (BEAKER) (test code 24 mmol/L 21-29 = 388) BASE EXCESS ARTERIAL (BEAKER) 0.3 mmol/L -2.0-3.0 (test code = 387) PATIENT TEMPERATURE (BEAKER) (test 36.0 C code = 1818) FIO2 (BEAKER) (test code = 1819) 70.0 % GLUCOSE-STAT [id number] 10:49:00 Test Item Value Reference Range Interpretation Comments GLUCOSE RANDOM (BEAKER) (test code 245 mg/dL 70-110 H = 652) SODIUM NA-STAT [id number] 10:46:00 Test Item Value Reference Range Interpretation Comments SODIUM (BEAKER) (test code = 381) 139 meq/L 135-148 POTASSIUM-STAT [id number] 10:46:00 Test Item Value Reference Range Interpretation Comments POTASSIUM (BEAKER) (test code = 3.6 meq/L 3.6-5.5 379) HGB/HCT (H&H) - STAT [id number] 10:46:00 Test Item Value Reference Range Interpretation Comments HEMOGLOBIN (BEAKER) (test code = 12.2 g/dL 12.0-15.0 410) HEMATOCRIT (BEAKER) (test code = 36.0 % 36.0-45.0 411) CALCIUM, [id number] 10:46:00 Test Item Value Reference Range Interpretation Comments CALCIUM IONIZED (BEAKER) (test 1.12 mmol/L 1.12-1.27 code = 698) PH, BLOOD (BEAKER) (test code = 7.45 1810) HEMOGLOBIN [id number] 10:19:00 Test Item Value Reference Range Interpretation Comments HEMOGLOBIN A1C (BEAKER) (test code = 8.4 % 4.3-6.1 H 368) BLOOD GAS, [id number] 09:55:00 Test Item Value Reference Range Interpretation Comments PH ARTERIAL (BEAKER) (test code = 7.46 7.35-7.45 H 383) PCO2 ARTERIAL (BEAKER) (test code 36 mmHg 35-45 = 384) PO2 ARTERIAL (BEAKER) (test code = 115 mmHg 80-90 H 385) O2 SATURATION ARTERIAL (BEAKER) 98.5 % 96.0-97.0 H (test code = 386) HCO3 ARTERIAL (BEAKER) (test code 26 mmol/L 21-29 = 388) BASE EXCESS ARTERIAL (BEAKER) 1.8 mmol/L -2.0-3.0 (test code = 387) PATIENT TEMPERATURE (BEAKER) (test 36.0 C code = 1818) FIO2 (BEAKER) (test code = 1819) 50.0 % GLUCOSE-STAT [id number] 09:55:00 Test Item Value Reference Range Interpretation Comments GLUCOSE RANDOM (BEAKER) (test code 260 mg/dL 70-110 H = 652) CALCIUM, [id number] 09:54:00 Test Item Value Reference Range Interpretation Comments CALCIUM IONIZED (BEAKER) (test 1.12 mmol/L 1.12-1.27 code = 698) PH, BLOOD (BEAKER) (test code = 7.45 1810) SODIUM NA-STAT [id number] 09:53:00 Test Item Value Reference Range Interpretation Comments SODIUM (BEAKER) (test code = 381) 137 meq/L 135-148 POTASSIUM-STAT [id number] 09:53:00 Test Item Value Reference Range Interpretation Comments POTASSIUM (BEAKER) (test code = 3.9 meq/L 3.6-5.5 379) HGB/HCT (H&H) - STAT [id number] 09:53:00 Test Item Value Reference Range Interpretation Comments HEMOGLOBIN (BEAKER) (test code = 12.7 g/dL 12.0-15.0 410) HEMATOCRIT (BEAKER) (test code = 37.0 % 36.0-45.0 411) POCT-GLUCOSE [id number] 08:03:00 Test Item Value Reference Range Interpretation Comments POC-GLUCOSE METER 328 mg/dL 70-110 H Baby teste d Mother ID (BEAKER) (test code = used/T ESTED AT [facility] 1538) [address] [facility] [address] CBC W/PLT COUNT & AUTO [id number] 05:52:00 Test Item Value Reference Range Interpretation Comments WHITE BLOOD CELL COUNT (BEAKER) 8.7 K/ L 3.5-10.5 (test code = 775) RED BLOOD CELL COUNT (BEAKER) 4.24 M/ L 3.93-5.22 (test code = 761) HEMOGLOBIN (BEAKER) (test code = 12.9 GM/DL 11.2-15.7 410) HEMATOCRIT (BEAKER) (test code = 40.0 % 34.1-44.9 411) MEAN CORPUSCULAR VOLUME (BEAKER) 94.3 fL 79.4-94.8 (test code = 753) MEAN CORPUSCULAR HEMOGLOBIN 30.4 pg 25.6-32.2 (BEAKER) (test code = 751) MEAN CORPUSCULAR HEMOGLOBIN CONC 32.3 GM/DL 32.2-35.5 (BEAKER) (test code = 752) RED CELL DISTRIBUTION WIDTH 12.8 % 11.7-14.4 (BEAKER) (test code = 412) PLATELET COUNT (BEAKER) (test 328 K/CU MM 150-450 code = 756) MEAN PLATELET VOLUME (BEAKER) 11.0 fL 9.4-12.3 (test code = 754) NUCLEATED RED BLOOD CELLS 0 /100 WBC 0-0 (BEAKER) (test code = 413) NEUTROPHILS RELATIVE PERCENT 54 % (BEAKER) (test code = 429) LYMPHOCYTES RELATIVE PERCENT 32 % (BEAKER) (test code = 430) MONOCYTES RELATIVE PERCENT 11 % (BEAKER) (test code = 431) EOSINOPHILS RELATIVE PERCENT 3 % (BEAKER) (test code = 432) BASOPHILS RELATIVE PERCENT 1 % (BEAKER) (test code = 437) NEUTROPHILS ABSOLUTE COUNT 4.66 K/ L 1.56-6.13 (BEAKER) (test code = 670) LYMPHOCYTES ABSOLUTE COUNT 2.76 K/ L 1.18-3.74 (BEAKER) (test code = 414) MONOCYTES ABSOLUTE COUNT (BEAKER) 0.95 K/ L 0.24-0.36 H (test code = 415) EOSINOPHILS ABSOLUTE COUNT 0.24 K/ L 0.04-0.36 (BEAKER) (test code = 416) BASOPHILS ABSOLUTE COUNT (BEAKER) 0.05 K/ L 0.01-0.08 (test code = 417) IMMATURE GRANULOCYTES-RELATIVE 1 % 0-1 PERCENT (BEAKER) (test code = 2801) TSH/FREE T4 IF [id number] 05:45:00 Test Item Value Reference Range Interpretation Comments THYROID STIMULATING HORMONE 1.77 uIU/mL 0.35-4.94 (BEAKER) (test code = 772) [id number] 05:25:00 Test Item Value Reference Range Interpretation Comments MAGNESIUM (BEAKER) (test code = 2.1 mg/dL 1.6-2.6 627) BASIC METABOLIC [id number] 05:25:00 Test Item Value Reference Range Interpretation Comments SODIUM (BEAKER) 139 meq/L 136-145 (test code = 381) POTASSIUM (BEAKER) 4.1 meq/L 3.5-5.1 (test code = 379) CHLORIDE (BEAKER) 104 meq/L 98-107 (test code = 382) CO2 (BEAKER) (test 26 meq/L 22-29 code = 355) BLOOD UREA NITROGEN 20 mg/dL 7-21 (BEAKER) (test code = 354) CREATININE (BEAKER) 0.88 mg/dL 0.57-1.25 (test code = 358) GLUCOSE RANDOM 256 mg/dL 70-105 H (BEAKER) (test code = 652) CALCIUM (BEAKER) 9.9 mg/dL 8.4-10.2 (test code = 697) EGFR (BEAKER) (test 62 mL/min/1.73 ESTIMA ABIMAEL GFR IS code = 1092) sq m NOT ACCURATE CREATININE CLEARANCE IN PREDICTING GLOMERULAR FILTRATION RATE . ESTIMATED GFR I S NOT APPLICABLE FOR DIALYSIS PATIEN TS. RAD, CHEST, 1 VIEW, NON [id number] 03:52:00Reason for exam:->Pre op Screening Should this be performed at the bedside?->YesFINAL REPORT History: Preoperative evaluation, surgery unspecified. Compariso n: 07/19/2018 Findings: A single view of the chest is submitted. The examination is limited by low lung volumes. The cardiac silhouette is within normal limits for size. There is atherosclerotic calcification of the aorta. Mild central pulmonary vascular prominence and perihilar interstitial opacity is likely exaggerated by low lung volumes and non-upright positioning but a component of mild pulmonary interstitial edema could be present. Curvilinear opacities in the lung bases may reflect atelectasis but pneumonitis should be excluded clinically. There is no pneumothorax, large pleural effusion or acute bony abnormality. Signed: Gus Johneport Verified Date/Time: 07/20/2018 03:52:05 Reading Location: [address] Reading Room RAD, CHEST, 1 VIEW, NON [id number] 00:35:00Reason for exam:->sobShould this be performed at the bedside?->YesFINAL REPORT Chest, 1 view. History: Shortness of breath. Comparison: None available. Findings: The cardiomediastinal silhouette and pulmonary vasculature are within normal limits for a portable exam. Atherosclerotic calcifications of the thoracic aorta. Bandlike opacity within the right infrahilar region is favored to represent atelectasis however superimposed infection is difficult to exclude in the proper clinical setting.. No pleural effusion or pneumothorax. Osteopenia.Signed: Jona Lance MDReport Verified Date/Time: 07/20/2018 00:35:10 Reading Location: [address] Reading Room URINALYSIS WITH MICROSCOPIC IF [id number] 23:02:00 Test Item Value Reference Range Interpretation Comments COLOR (BEAKER) (test code = 470) Yellow CLARITY (BEAKER) (test code = Clear 469) SPECIFIC GRAVITY UA (BEAKER) 1.050 1.001-1.035 H (test code = 468) PH UA (BEAKER) (test code = 467) 5.5 5.0-8.0 PROTEIN UA (BEAKER) (test code = 20 mg/dL Negative A 464) GLUCOSE UA (BEAKER) (test code = >1000 mg/dL Negative A 365) KETONES UA (BEAKER) (test code = Negative Negative 371) BILIRUBIN UA (BEAKER) (test code Negative Negative = 462) BLOOD UA (BEAKER) (test code = Negative Negative 461) NITRITE UA (BEAKER) (test code = Negative Negative 465) LEUKOCYTE ESTERASE UA (BEAKER) Negative Negative (test code = 466) UROBILINOGEN UA (BEAKER) (test 2.0 mg/dL 0.2-1.0 H code = 463) SOURCE(BEAKER) (test code = 2795) URINALYSIS [id number] 23:02:00 Test Item Value Reference Range Interpretation Comments RBC UA (BEAKER) (test code = 519) 0 /HPF WBC UA (BEAKER) (test code = 520) 1 /HPF MUCUS (BEAKER) (test code = 1574) Rare SQUAMOUS EPITHELIAL (BEAKER) (test 1 /HPF code = 516) POCT-GLUCOSE [id number] 20:44:00 Test Item Value Reference Range Interpretation Comments POC-GLUCOSE METER 328 mg/dL 70-110 H TESTED AT [facility] 6720 (BEAKER) (test code = [facility] 1538) [address] TROPONIN [id number] 19:35:00 Test Item Value Reference Range Interpretation Comments TROPONIN I (BEAKER) (test code = 0.20 ng/mL 0.00-0.03 397) Troponin I (TnI) levels must be interpreted in the context of the presenting symptoms and the clinical findings. Elevated TnI levels indicate myocardial damage, but are not specific for ischemic heart disease. Elevated TnI levels are seen in patients with other cardiac conditions (including myocarditis and congestive heart failure), and slight TnI elevations occur in patients with other conditions, including sepsis, renal failure, acidosis, acute neurological disease, and persistent tachyarrhythmia.COMPREHENSIVE METABOLIC [id number] 19:27:00 Test Item Value Reference Range Interpretation Comments TOTAL PROTEIN 8.3 gm/dL 6.0-8.3 Specimen sligh tly (BEAKER) (test code = hemoly zed 770) ALBUMIN (BEAKER) 4.4 g/dL 3.5-5.0 Specimen sl ightly (test code = 1145) hemolyzed ALKALINE PHOSPHATASE 74 U/L 40-150 (BEAKER) (test code = 346) BILIRUBIN TOTAL 0.4 mg/dL 0.2-1.2 Specimen sli ghtly (BEAKER) (test code = hemoly zed 377) SODIUM (BEAKER) (test 139 meq/L 136-145 code = 381) POTASSIUM (BEAKER) 4.2 meq/L 3.5-5.1 Specimen slightly (test code = 379) hemolyzed CHLORIDE (BEAKER) 102 meq/L 98-107 (test code = 382) CO2 (BEAKER) (test 27 meq/L 22-29 code = 355) BLOOD UREA NITROGEN 21 mg/dL 7-21 (BEAKER) (test code = 354) CREATININE (BEAKER) 1.06 mg/dL 0.57-1.25 Specimen slightly (test code = 358) hemolyzed GLUCOSE RANDOM 272 mg/dL 70-105 H (BEAKER) (test code = 652) CALCIUM (BEAKER) 10.1 mg/dL 8.4-10.2 (test code = 697) AST (SGOT) (BEAKER) 25 U/L 5-34 Specimen slightly (test code = 353) hemolyzed ALT (SGPT) (BEAKER) 17 U/L 6-55 Specimen slightly (test code = 347) hemolyzed EGFR (BEAKER) (test 50 mL/min/1.73 ESTIMA ABIMAEL GFR IS code = 1092) sq m NOT ACCURATE CREATININE CLEARANCE IN PREDICTING GLOMERULAR FILTRATION RATE . ESTIMATED GFR I S NOT APPLICABLE FOR DIALYSIS PATIEN TS. [id number] 19:19:00 Test Item Value Reference Range Interpretation Comments PARTIAL THROMBOPLASTIN TIME 35.0 seconds 22.5-36.0 (BEAKER) (test code = 760) PROTHROMBIN [id number] 19:18:00 Test Item Value Reference Range Interpretation Comments PROTIME (BEAKER) (test code = 14.1 seconds 11.7-14.7 759) INR (BEAKER) (test code = 370) 1.1 <=5.9 RECOMMENDED COUMADIN/WARFARIN INR THERAPY RANGESSTANDARD DOSE: 2.0 - 3.0 Includes: PROPHYLAXIS forvenous thrombosis, systemic embolization; TREATMENT for venous thrombosis and/or pulmonary embolus.HIGH RISK: Target INR is 2.5-3.5 for patients with mechanical heart valves.CBC W/PLT COUNT & AUTO DIFFERENTIAL 2018-07-19 19:10:00 Test Item Value Reference Range Interpretation Comments WHITE BLOOD CELL COUNT (BEAKER) 9.5 K/ L 3.5-10.5 (test code = 775) RED BLOOD CELL COUNT (BEAKER) 4.62 M/ L 3.93-5.22 (test code = 761) HEMOGLOBIN (BEAKER) (test code = 13.8 GM/DL 11.2-15.7 410) HEMATOCRIT (BEAKER) (test code = 43.3 % 34.1-44.9 411) MEAN CORPUSCULAR VOLUME (BEAKER) 93.7 fL 79.4-94.8 (test code = 753) MEAN CORPUSCULAR HEMOGLOBIN 29.9 pg 25.6-32.2 (BEAKER) (test code = 751) MEAN CORPUSCULAR HEMOGLOBIN CONC 31.9 GM/DL 32.2-35.5 L (BEAKER) (test code = 752) RED CELL DISTRIBUTION WIDTH 12.8 % 11.7-14.4 (BEAKER) (test code = 412) PLATELET COUNT (BEAKER) (test 358 K/CU MM 150-450 code = 756) MEAN PLATELET VOLUME (BEAKER) 10.6 fL 9.4-12.3 (test code = 754) NUCLEATED RED BLOOD CELLS 0 /100 WBC 0-0 (BEAKER) (test code = 413) NEUTROPHILS RELATIVE PERCENT 58 % (BEAKER) (test code = 429) LYMPHOCYTES RELATIVE PERCENT 29 % (BEAKER) (test code = 430) MONOCYTES RELATIVE PERCENT 10 % (BEAKER) (test code = 431) EOSINOPHILS RELATIVE PERCENT 2 % (BEAKER) (test code = 432) BASOPHILS RELATIVE PERCENT 1 % (BEAKER) (test code = 437) NEUTROPHILS ABSOLUTE COUNT 5.49 K/ L 1.56-6.13 (BEAKER) (test code = 670) LYMPHOCYTES ABSOLUTE COUNT 2.78 K/ L 1.18-3.74 (BEAKER) (test code = 414) MONOCYTES ABSOLUTE COUNT (BEAKER) 0.93 K/ L 0.24-0.36 H (test code = 415) EOSINOPHILS ABSOLUTE COUNT 0.22 K/ L 0.04-0.36 (BEAKER) (test code = 416) BASOPHILS ABSOLUTE COUNT (BEAKER) 0.05 K/ L 0.01-0.08 (test code = 417) IMMATURE GRANULOCYTES-RELATIVE 0 % 0-1 PERCENT (THERON) (test code = 2801) POCT-GLUCOSE [id number] 16:58:00 Test Item Value Reference Range Interpretation Comments POC-GLUCOSE METER 340 mg/dL 70-110 H Baby teste d Mother ID (THERON) (test code = used/T ESTED AT [facility] 2315) [address] [facility] [address]
[2020-12-04] MEDS ORDERED: ONDANSETRON 4 MG/2 ML VIAL ONE ×3 (11:31→18:22)
[2020-12-04 12:07] LABS: Absolute Lymphocytes (CBC) 1.4 K/uL (0.7-4.9); Basophils % 0.3 % (0-1.3); Hematocrit 40.1 % (36.0-45.0); Lymphocytes % 9.5 % (15.3-44.8); MPV 9.3 fL (7.6-11.3); RBC Red Blood Cell Count 4.43 M/uL (3.86-4.86)
[2020-12-04 12:14] LABS: Protime INR 1.22
[2020-12-04 12:36] LABS: ALT/SGPT 13 U/L (12-78); AST/SGOT 11 U/L (15-37); Albumin 2.6 g/dL (3.4-5.0); Alkaline Phosphatase 80 U/L (45-117); BUN Blood Urea Nitrogen 20 mg/dL (7-18); Bicarbonate 20 mmol/L (21-32); Bilirubin Direct 0.4 mg/dL (0-0.2); Bilirubin Total 0.9 mg/dL (0.2-1.0); Glucose Level 327 mg/dL (74-106); Magnesium 1.9 mg/dL (1.8-2.4); NT PRO-BNP 368 pg/mL (<450); Protein, Total 7.3 g/dL (6.4-8.2); Sodium Level 134 mmol/L (136-145); Troponin (Emerg Dept Use Only) < 0.02 ng/mL (0.0-0.045)
--- NOTE | 2020-12-04 12:45 | RAD REPORT ---
EXAM DESCRIPTION: RAD - Chest Single View - 12/04/2020 12:39 pm CLINICAL HISTORY: DYSPNEA COMPARISON: Portable July 2018 TECHNIQUE: AP portable chest image was obtained 12/04/2020 12:39 pm . FINDINGS: No mass or consolidations seen. 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 Sternotomy wires ar e in place. Heart and vasculature are normal. No measurable pleural effusion and no pneumothorax. No acute bony abnormality seen. No acute aortic findings suspected. IMPRESSION: Chronic interstitial lung pattern with no acute cardiopulmonary process. No worrisome change from comparison.
--- NOTE | 2020-12-04 13:15 | RAD REPORT ---
EXAM DESCRIPTION: CT - Chest For Pe Angio - 12/04/2020 1:04 pm CLINICAL HISTORY: Chest pain. DYSPNEA COMPARISON: Chest For Pe Angio dated 07/17/2018 TECHNIQUE: CT angiogram of the pulmonary arteries was performed with MIP. All CT scans are performed using dose optimization technique as appropriate and may include automated exposure control or mA/KV adjustment according to patient size. FINDINGS: No evidence of pulmonary thromboembolism. No acute aortic finding demonstrated. Mild diffuse COPD is present. No significant pericardial or pleural fluid. Mild thoracic spondylosis. Suspected small right renal calculus, incompletely evaluated. IMPRESSION: No evidence of pulmonary thromboembolism. Mild diffuse COPD. Small right renal calculus suspected. Consider follow-up renal ultrasound.
[2020-12-04] MEDS ORDERED: NA CHLORIDE 0.9% 500 ML ONE ×2 (13:31→15:23)
[2020-12-04 13:46] LABS: Blood Morphology Comment NOT SEEN (NOT SEEN); Platelet Estimate ADEQ
[2020-12-04 14:00] LABS: Urine Blood 2+ (Negative); Urine Glucose 2+ (Negative); Urine Protein 2+ (Negative)
[2020-12-04 14:12] LABS: Urine Bacteria >50 /HPF (<20); Urine RBC <5 /HPF (NONE SEEN)
[2020-12-04] MEDS ORDERED: CEFTRIAXONE/SWI 1gm 1 GM/10 ML SYR ONE (14:39)
--- NOTE | 2020-12-04 14:56 | ER ---
Nurse's Notes [facility] Name: Rylee Burch Age: 85 yrs Sex: Female : 1935 Arrival Date: 12/04/2020 Time: 10:38 Bed 8 Private MD: Diagnosis: Urinary tract infection, site not specified;Weakness;Other sepsis Presentation: 12/04 11:00 Chief complaint: Patient states: "here in the last week I have been weaker and weaker jd3 to the point where today I can't walk. I also started having some nausea and vomiting this morning. I also have been going to the bathroom a lot. I am also getting short of breath with the moving around too.". Coronavirus screen: shortness of breath, Client presents with at least one sign or symptom that may indicate coronavirus-19. Standard/surgical mask placed on the client. Provider contacted for isolation considerations. Ebola Screen: Patient negative for fever greater than or equal to 101.5 degrees Fahrenheit, and additional compatible Ebola Virus Disease symptoms. Initial Sepsis Screen: Does the patient meet any 2 criteria? No. Patient's initial sepsis screen is negative. Does the patient have a suspected source of infection? No. Patient's initial sepsis screen is negative. Risk Assessment: Do you want to hurt yourself or someone else? Patient reports no desire to harm self or others. Onset of symptoms was November 27, 2020. 11:00 Method Of Arrival: Ambulatory jd3 11:00 Acuity: JOSE E 3 jd3 Historical: - Allergies: 11:07 Cyproheptadine; jd3 11:07 PENICILLINS; jd3 11:07 flu shot; jd3 - Home Meds: 11:07 Lantus subcutaneous Sub-Q [Active]; Eliquis oral oral [Active]; jd3 - PMHx: 11:07 Diabetes - IDDM; Hypertension; jd3 - PSHx: 11:07 open heart surgery; jd3 - Immunization history:: Adult Immunizations not up to date. - Social history:: Smoking status: Patient denies any tobacco usage or history of. Screenin:09 Abuse screen: Denies threats or abuse. Nutritional screening: No deficits noted. jd3 Tuberculosis screening: No symptoms or risk factors identified. Fall Risk Ambulatory Aid- Crutches/Cane/Walker (15 pts). Gait- Weak (10 pts.). Mental Status- Oriented to own ability (0 pts). Total [place] Fall Scale indicates Low Risk Score (25-44 pts). Fall prevention measures have been instituted. Side Rails Up X 2 Placed close to Nursing Station Frequent Obs/Assesments occuring Family Present and informed to notify staff if they need to leave bedside. Assessment: 11:07 General: Appears in no apparent distress. comfortable, Behavior is calm, cooperative, jd3 appropriate for age. Pain: Denies pain. Neuro: Level of Consciousness is awake, alert, obeys commands, Oriented to person, place, time, situation. Cardiovascular: Denies chest pain, Capillary refill < 3 seconds Patient's skin is warm and dry. Rhythm is sinus tachycardia. Respiratory: Reports shortness of breath on exertion Airway is patent Respiratory effort is even, unlabored, Respiratory pattern is regular, symmetrical. GI: Abdomen is round non-distended, Abd is soft and non tender X 4 quads. Reports nausea, vomiting, Patient currently denies abdominal pain, constipation, diarrhea. : Reports urinary frequency. EENT: No signs and/or symptoms were reported regarding the EENT system. Derm: Skin is intact, Skin is dry, Skin is normal, Skin temperature is warm. Musculoskeletal: Circulation, motion, and sensation intact. Range of motion: limited in left and right legs. 11:59 Reassessment: Patient appears in no apparent distress at this time. No changes from jd3 previously documented assessment. Patient and/or family updated on plan of care and expected duration. Pain level reassessed. Patient is alert, oriented x 3, equal unlabored respirations, skin warm/dry/pink. 13:33 Reassessment: Patient appears in no apparent distress at this time. No changes from jd3 previously documented assessment. Patient and/or family updated on plan of care and expected duration. Pain level reassessed. Patient is alert, oriented x 3, equal unlabored respirations, skin warm/dry/pink. 14:37 Reassessment: Patient appears in no apparent distress at this time. Patient and/or jd3 family updated on plan of care and expected duration. Pain level reassessed. Patient is alert, oriented x 3, equal unlabored respirations, skin warm/dry/pink. provider at bedside discussing plan of care. 16:16 Reassessment: Patient appears in no apparent distress at this time. Patient and/or jd3 family updated on plan of care and expected duration. Pain level reassessed. Patient is alert, oriented x 3, equal unlabored respirations, skin warm/dry/pink. Patient denies pain at this time. 17:15 Reassessment: Patient appears in no apparent distress at this time. Patient and/or jd3 family updated on plan of care and expected duration. Pain level reassessed. Patient is alert, oriented x 3, equal unlabored respirations, skin warm/dry/pink. Patient denies pain at this time. 18:00 Reassessment: Patient appears in no apparent distress at this time. Patient and/or jd3 family updated on plan of care and expected duration. Pain level reassessed. Patient is alert, oriented x 3, equal unlabored respirations, skin warm/dry/pink. [facility] pt moved to ER HOLD status. 20:27 Reassessment: report given to ravi EDEN awake, alert no complaints made, vital signs taken rr5 and recorded. Vital Signs: 11:07 BP 146 / 71; Pulse 118; Resp 19 S; Temp 98.4(TE); Pulse Ox 98% on R/A; Weight 99.79 kg j (R); Height 5 ft. 2 in. (157.48 cm) (R); Pain 0/10; 11:59 BP 136 / 58; Pulse 108; Resp 18 S; Pulse Ox 97% on R/A; jd3 13:33 BP 122 / 55; Pulse 106; Resp 20 S; Pulse Ox 100% on R/A; jd3 14:37 BP 127 / 61; Pulse 113; Resp 19 S; Pulse Ox 99% on R/A; jd3 16:17 BP 121 / 68; Pulse 115; Resp 17 S; Pulse Ox 98% on R/A; jd3 17:30 BP 135 / 55; Pulse 116; Resp 17 S; Pulse Ox 99% on R/A; jd3 11:07 Body Mass Index 40.24 (99.79 kg, 157.48 cm) [facility] Coma Score: 11:06 Eye Response: spontaneous(4). Verbal Response: oriented(5). Motor Response: obeys [facility] commands(6). Total: 15. NIH Stroke Scale Scores: 11:06 NIHSS Score: 0 jr8 ED Course: 10:38 Patient arrived in ED. as 10:46 Stefano Walters PA is PHCP. jr8 10:46 Jerrod Gunter MD is Attending Physician. jr8 11:00 Tremaine Ervin, KAREY is Primary Nurse. jd3 11:04 Triage completed. jd3 11:07 Arm band placed on. jd3 11:09 Patient has correct armband on for positive identification. Bed in low position. Call jd3 light in reach. Side rails up X2. Adult w/ patient. [employer] monitor on. Pulse ox on. NIBP on. 11:40 Missed attempt(s): 20 gauge in left forearm. Bleeding controlled, band aid applied, jd3 catheter tip intact. 11:49 Inserted saline lock: 22 gauge in right forearm, using aseptic technique. Blood bp collected. 12:38 XRAY Chest (1 view) In Process Unspecified. EDMS 12:41 Inserted saline lock: 20 gauge in right forearm, using aseptic technique. bp 13:04 CT Chest For PE Angio In Process Unspecified. EDMS 14:54 Derick Lee is Hospitalizing Provider. jr8 15:04 CT Head Brain wo Cont In Process Unspecified. EDMS 15:09 CT Lumbar Spine Wo Con In Process Unspecified. EDMS 15:18 XRAY Pelvis In Process Unspecified. EDMS 15:20 Lexa Thompson MD is Hospitalizing Provider. jr8 16:36 Cleaned of incontinence. Linen changed. jd3 18:00 No provider procedures requiring assistance completed. Patient admitted, IV remains in jd3 place. Administered Medications: 11:56 Drug: Zofran (Ondansetron) 4 mg Route: IVP; Site: right antecubital; jd3 12:50 Follow up: Response: No adverse reaction jd3 13:20 Drug: Zofran (Ondansetron) 4 mg Route: IVP; Site: right antecubital; jd3 14:20 Follow up: Response: No adverse reaction jd3 13:21 Drug: NS 0.9% 500 ml Route: IV; Rate: bolus; Site: right antecubital; jd3 14:20 Follow up: Response: No adverse reaction; IV Status: Completed infusion; IV Intake: jd3 500ml 14:39 Drug: Rocephin - (cefTRIAXone) 1 grams Route: IVPB; Infused Over: 30 mins; Site: right jd3 antecubital; 15:30 Follow up: Response: No adverse reaction; IV Status: Completed infusion jd3 15:00 Drug: NS 0.9% 500 ml Route: IV; Rate: bolus; Site: right antecubital; jd3 17:00 Follow up: Response: No adverse reaction; IV Status: Completed infusion jd3 Intake: 14:20 IV: 500ml; Total: 500ml. jd3 Outcome: 14:56 Decision to Hospitalize by Provider. jr8 18:50 Admitted to ER Hold. Please see [facility] for further documentation. jd3 18:50 Condition: stable 18:50 Instructed on the need for admit, Demonstrated understanding of instructions. 20:29 Patient left the ED. rr5 NIH Stroke Scale - NIH Stroke Score Date: 12/04/2020 Time: 11:06 Total Score = 0 1a. Level of Consciousness (LOC) - 0(Alert) 1b. Level of Consciousness (LOC) (Year \\T\\ Age) - 0(Both) 1c. LOC Commands (Open \\T\\ Closes Eyes/Terrazzo Layer) - 0(Both) 2. Best Gaze (Lateral Gaze Paresis) - 0(Normal) 3. Visual Field Loss - 0(No visual loss) 4. Facial Palsy - 0(Normal) 5a. Left Arm: Motor (10-second hold) - 0(No drift) 5b. Right Arm: Motor (10-second hold) - 0(No drift) 6a. Left Leg: Motor (5-second hold - always test supine) - 0(No drift) 6b. Right Leg: Motor (5-second hold - always test supine) - 0(No drift) 7. Limb Ataxia (finger/nose \\T\\ heel/keyes - test with eyes open) - 0(Absent) 8. Sensory Loss (pinprick arms/legs/face) - 0(Normal) 9. Best Language: Aphasia (description/naming/reading) - 0(No aphasia) 10. Dysarthria (speech clarity - read or repeat words) - 0(Normal) 11. Extinction and Inattention (visual/tactile/auditory/spatial/personal) - 0(No abnormality) Initials: jrGanga Signatures: Dispatcher [employer] Roselia Downey Josh, PA PA jr8 Davies, Jonathon, RN RN jd3 Antonio Mills, RN RN bp Gurjit Mello RN RN rr5 Corrections: (The following items were deleted from the chart) 16:34 16:17 Pulse 115bpm; Resp 17bpm; Spontaneous; Pulse Ox 98% RA; jd3 jd3
--- NOTE | 2020-12-04 14:56 | EDPHYS ---
Physician Documentation [facility] Name: Rylee Burch Age: 85 yrs Sex: Female : 1935 Arrival Date: 12/04/2020 Time: 10:38 Bed 8 Private MD: ED Physician Jerrod Gunter HPI: 12/04 11:02 This 85 yrs old Female presents to ER via Unassigned with complaints of jr8 Weakness, Trouble Walking. 11:02 Patient presents for progressive increase in weakness over past week. She reports jr8 beginning to vomit yesterday with dizziness. She also has SOB. PMHx: bypass in 2018, Dm that is controlled with insulin. She takes Eliquis. . 14:56 Severity of symptoms: At their worst the symptoms were moderate in the emergency jr8 department the symptoms are unchanged. The patient has not experienced similar symptoms in the past. The patient has not recently seen a physician. Historical: - Allergies: 11:07 Cyproheptadine; jd3 11:07 PENICILLINS; jd3 11:07 flu shot; jd3 - Home Meds: 11:07 Lantus subcutaneous Sub-Q [Active]; Eliquis oral oral [Active]; jd3 - PMHx: 11:07 Diabetes - IDDM; Hypertension; jd3 - PSHx: 11:07 open heart surgery; jd3 - Immunization history:: Adult Immunizations not up to date. - Social history:: Smoking status: Patient denies any tobacco usage or history of. ROS: 11:04 Constitutional: Positive for fatigue, poor PO intake. jr8 11:04 Cardiovascular: Negative for chest pain. 11:04 Respiratory: Positive for shortness of breath, at rest. 11:04 Abdomen/GI: Positive for nausea. 11:04 MS/extremity: Positive for General weakness. 11:04 Neuro: Positive for dizziness. 11:04 All other systems are negative. 14:56 Back: Negative for injury and pain, Skin: Negative for injury, rash, and discoloration. jr8 Exam: 11:06 Abdomen/GI: Soft, non-tender, with normal bowel sounds. No distension or tympany. No jr8 guarding or rebound. No evidence of tenderness throughout. MS/ Extremity: Pulses equal, no cyanosis. Neurovascular intact. Full, normal range of motion. 11:06 Constitutional: The patient appears alert, awake, comfortable. 11:06 Chest/axilla: Inspection: Scar, Palpation: is normal. 11:06 Cardiovascular: Rate: tachycardic, actual rate is 116 bpm, Rhythm: regular, Pulses: Pulses are 2+ in right radial artery, right dorsalis pedis artery, left radial artery and left dorsalis pedis artery. Heart sounds: normal, Edema: is not appreciated. 11:06 Respiratory: the patient does not display signs of respiratory distress, Respirations: normal, Breath sounds: decreased breath sounds, are scattered, Respiratory rate: 24 11:06 Neuro: Orientation: is normal, Mentation: is normal, Memory: is normal, Cranial nerves: grossly normal. 14:56 Musculoskeletal/extremity: Extremities: grossly normal except: noted in the left leg: jr8 weakness noted to left hip flexors , ROM: limited passive range of motion, in the left leg, Circulation is intact in all extremities. Sensation intact. Vital Signs: 11:07 BP 146 / 71; Pulse 118; Resp 19 S; Temp 98.4(TE); Pulse Ox 98% on R/A; Weight 99.79 kg jd3 (R); Height 5 ft. 2 in. (157.48 cm) (R); Pain 0/10; 11:59 BP 136 / 58; Pulse 108; Resp 18 S; Pulse Ox 97% on R/A; jd3 13:33 BP 122 / 55; Pulse 106; Resp 20 S; Pulse Ox 100% on R/A; jd3 14:37 BP 127 / 61; Pulse 113; Resp 19 S; Pulse Ox 99% on R/A; jd3 16:17 BP 121 / 68; Pulse 115; Resp 17 S; Pulse Ox 98% on R/A; jd3 17:30 BP 135 / 55; Pulse 116; Resp 17 S; Pulse Ox 99% on R/A; jd3 11:07 Body Mass Index 40.24 (99.79 kg, 157.48 cm) jd3 NIH Stroke Scale Scores: 11:06 NIHSS Score: 0 jr8 [place] Coma Score: 11:06 Eye Response: spontaneous(4). Verbal Response: oriented(5). Motor Response: obeys jr8 commands(6). Total: 15. MDM: 10:46 Patient medically screened. jr8 14:52 Data reviewed: vital signs, nurses notes, lab test result(s), radiologic studies, CT [facility] scan, plain films. Data interpreted: Pulse oximetry: on room air is 99 %. Interpretation: normal. Counseling: I had a detailed discussion with the patient and/or guardian regarding: the historical points, exam findings, and any diagnostic results supporting the discharge/admit diagnosis, lab results, radiology results, the need for further work-up and treatment in the hospital. 12/04 10:59 Order name: Basic Metabolic Panel; Complete Time: 12:[address] [facility] 12/04 10:59 Order name: CBC with Diff; Complete Time: 13:[address] [facility] 12/04 10:59 Order name: LFT's; Complete Time: 12:[address] [facility] 12/04 10:59 Order name: Magnesium; Complete Time: 12:[address] [facility] 12/04 10:59 Order name: NT PRO-BNP; Complete Time: 12:[address] [facility] 12/04 10:59 Order name: PT-INR; Complete Time: 12:[address] [facility] 12/04 10:59 Order name: Troponin (emerg Dept Use Only); Complete Time: 12:[address] [facility] 12/04 10:59 Order name: Urine Microscopic Only; Complete Time: 14:[address] [facility] 12/04 10:59 Order name: D-Dimer; Complete Time: 12:[address] [facility] 12/04 13:45 Order name: Manual Differential; Complete Time: 13:56 [facility] 12/04 13:59 Order name: Urine Dipstick-Ancillary; Complete Time: 14:18 [facility] 12/04 14:13 Order name: Urine Culture [facility] 12/04 14:52 Order name: Blood Culture Adult (2) [facility] 12/04 14:52 Order name: Lactate; Complete Time: 16:[address] [facility] 12/04 14:52 Order name: Procalcitonin; Complete Time: 16:[address] [facility] 12/04 15:42 Order name: Folic Acid, (Folate) [facility] 12/04 15:42 Order name: Iron [facility] 12/04 15:42 Order name: NT PRO-BNP [facility] 12/04 15:42 Order name: T4 Free [facility] 12/04 15:42 Order name: Thyroid Stimulating Hormone [facility] 12/04 15:42 Order name: Vitamin B12 Level [facility] 12/04 15:42 Order name: CBC with Automated Diff [facility] 12/04 15:42 Order name: CBC with Automated Diff [facility] 12/04 15:42 Order name: Comprehensive Metabolic Panel [facility] 12/04 15:42 Order name: Comprehensive Metabolic Panel [facility] 12/04 15:42 Order name: Cortisol [facility] 12/04 15:42 Order name: Cortisol [facility] 12/04 15:42 Order name: Creatine Phosphokinase [facility] 12/04 15:42 Order name: Creatine Phosphokinase EDMS 12/04 15:42 Order name: Magnesium [facility] 12/04 10:59 Order name: XRAY Chest (1 view); Complete Time: 12:52 12/04 10:59 Order name: EKG; Complete Time: 11:00 12/04 10:59 Order name: Cardiac monitoring; Complete Time: 11:10 12/04 10:59 Order name: EKG - Nurse/Tech; Complete Time: 11:26 12/04 10:59 Order name: IV Saline Lock; Complete Time: 11:48 12/04 10:59 Order name: Labs collected and sent; Complete Time: 11:48 12/04 10:59 Order name: O2 Per Protocol; Complete Time: 11:10 12/04 10:59 Order name: O2 Sat Monitoring; Complete Time: 11:10 12/04 12:26 Order name: CT Chest For PE Angio; Complete Time: 13:22 12/04 14:53 Order name: CT Lumbar Spine Wo Con; Complete Time: 15:23 12/04 14:53 Order name: XRAY Pelvis; Complete Time: 16:24 12/04 14:59 Order name: CT Head Brain wo Cont; Complete Time: 15:14 12/04 15:42 Order name: CONS Physician Consult [facility] 12/04 15:42 Order name: Physical Therapy Consult [facility] 12/04 15:42 Order name: Heart Healthy [facility] 12/04 15:42 Order name: Magnesium ED[facility] 12/04 15:42 Order name: Phosphorus [facility] 12/04 15:42 Order name: Phosphorus ED[facility] 12/04 15:42 Order name: Prealbumin ED[facility] 12/04 15:42 Order name: Prealbumin ED[facility] 12/04 15:43 Order name: Urinalysis [facility] 12/04 15:43 Order name: Brain Wo Cont [facility] 12/04 15:43 Order name: Brain Wo Cont [facility] 12/04 17:28 Order name: MRI; Complete Time: 17:30 [facility] 12/04 17:34 Order name: COVID-19 : Document "Date of Symptom Onset" if Symptomatic. aa5 12/04 18:07 Order name: CORONAVIRUS [facility] 12/04 19:04 Order name: SARS-COV-2 RT PCR; Complete Time: 19:25 [facility] 12/04 10:59 Order name: Urine Dipstick-Ancillary (obtain specimen); Complete Time: 14:52 jr8 Administered Medications: 11:56 Drug: Zofran (Ondansetron) 4 mg Route: IVP; Site: right antecubital; jd3 12:50 Follow up: Response: No adverse reaction jd3 13:20 Drug: Zofran (Ondansetron) 4 mg Route: IVP; Site: right antecubital; jd3 14:20 Follow up: Response: No adverse reaction jd3 13:21 Drug: NS 0.9% 500 ml Route: IV; Rate: bolus; Site: right antecubital; jd3 14:20 Follow up: Response: No adverse reaction; IV Status: Completed infusion; IV Intake: jd3 500ml 14:39 Drug: Rocephin - (cefTRIAXone) 1 grams Route: IVPB; Infused Over: 30 mins; Site: right jd3 antecubital; 15:30 Follow up: Response: No adverse reaction; IV Status: Completed infusion jd3 15:00 Drug: NS 0.9% 500 ml Route: IV; Rate: bolus; Site: right antecubital; jd3 17:00 Follow up: Response: No adverse reaction; IV Status: Completed infusion jd3 Disposition: 12/04/20 14:56 Hospitalization ordered by Lexa Thompson for Inpatient Admission. Preliminary diagnosis are Urinary tract infection, site not specified, Weakness, Other sepsis. - Bed requested for Telemetry/MedSurg (Inpatient). - Status is Inpatient Admission. rr5 - Condition is Stable. - Problem is new. - Symptoms are unchanged. NIH Stroke Scale - NIH Stroke Score Date: 12/04/2020 Time: 11:06 Total Score = 0 1a. Level of Consciousness (LOC) - 0(Alert) 1b. Level of Consciousness (LOC) (Year \\T\\ Age) - 0(Both) 1c. LOC Commands (Open \\T\\ Closes Eyes/Rail Setter) - 0(Both) 2. Best Gaze (Lateral Gaze Paresis) - 0(Normal) 3. Visual Field Loss - 0(No visual loss) 4. Facial Palsy - 0(Normal) 5a. Left Arm: Motor (10-second hold) - 0(No drift) 5b. Right Arm: Motor (10-second hold) - 0(No drift) 6a. Left Leg: Motor (5-second hold - always test supine) - 0(No drift) 6b. Right Leg: Motor (5-second hold - always test supine) - 0(No drift) 7. Limb Ataxia (finger/nose \\T\\ heel/keyes - test with eyes open) - 0(Absent) 8. Sensory Loss (pinprick arms/legs/face) - 0(Normal) 9. Best Language: Aphasia (description/naming/reading) - 0(No aphasia) 10. Dysarthria (speech clarity - read or repeat words) - 0(Normal) 11. Extinction and Inattention (visual/tactile/auditory/spatial/personal) - 0(No abnormality) Initials: jr8 Addendum: 12/08/2020 19:11 Co-signature as Attending Physician, Jerrod Gunter MD. rn Signatures: Dispatcher [employer] EDMS Cathleen Reynolds RN RN mw Nieto, Roman, MD MD rn Roszak, Josh, PA PA jr8 Tremaine Ervin RN RN jGurjit Oakes RN RN rr5 Corrections: (The following items were deleted from the chart) 12/04 15:20 14:56 Hospitalization Ordered by Derick Lee for Inpatient Admission. jr8 Preliminary diagnosis is Urinary tract infection, site not specified; Weakness; Other sepsis. Bed requested for Telemetry/MedSurg (Inpatient). Status is Inpatient Admission. Condition is Stable. Problem is new. Symptoms are unchanged. jr8 20:15 15:20 12/04/2020 14:56 Hospitalization Ordered by Lexa Thompson MD for Inpatient Admission. Preliminary diagnosis is Urinary tract infection, site not specified; Weakness; Other sepsis. Bed requested for Telemetry/MedSurg (Inpatient). Status is Inpatient Admission. Condition is Stable. Problem is new. Symptoms are unchanged. jr8 20:29 20:15 12/04/2020 14:56 Hospitalization Ordered by Lexa Thompson MD for rr5 Inpatient Admission. Preliminary diagnosis is Urinary tract infection, site not specified; Weakness; Other sepsis. Bed requested for Telemetry/MedSurg (Inpatient). Status is Inpatient Admission. Condition is Stable. Problem is new. Symptoms are unchanged. mw
--- NOTE | 2020-12-04 15:14 | RAD REPORT ---
EXAM DESCRIPTION: CT - Head Brain Wo Cont - 12/04/2020 3:04 pm CLINICAL HISTORY: WEAKNESS Headache, drowsiness COMPARISON: No comparisons TECHNIQUE: All CT scans are performed using dose optimization technique as appropriate and may inclu de automated exposure control or mA/KV adjustment according to patient size. FINDINGS: No intracranial hemorrhage, hydrocephalus or extra-axial fluid collection.Mild brain atrop hy with mild to moderate periventricular and deep white matter chronic microvascular ischemic changes .12 mm area of gliosis in the right cerebellar hemisphere is seen. Mild gliosis is seen in the left o ccipital lobe. These findings are likely related to prior infarction. Chronic left sphenoid sinus thickening. The paranasal sinuses and mastoids are otherwise clear. The c alvarium is intact. IMPRESSION: No acute intracranial abnormality.
--- NOTE | 2020-12-04 15:21 | RAD REPORT ---
EXAM DESCRIPTION: CT - Spine Lumbar Wo Con - 12/04/2020 3:09 pm CLINICAL HISTORY: Radiculopathy. WEAKNESS COMPARISON: No comparisons TECHNIQUE: Axial noncontrast CT imaging of the lumbar spine was performed with coronal and sagittal re-formatted images. All CT scans are performed using dose optimization technique as appropriate and may include automated exposure control or mA/KV adjustment according to patient size. FINDINGS: The bones are diffusely osteopenic. There is a mild compression fracture affecting the L5 vertebral body, chronic in appearance. Moderate degenerative changes seen particularly at the L2-3 level. There is no finding to indicate an acute l umbar compression fracture. Paraspinal tissues are normal in thickness. No paraspinal abscess or hematoma seen. IMPRESSION: No acute lumbar spine abnormality discerned. Moderately severe L2-3 degenerative spondylosis.
--- NOTE | 2020-12-04 15:24 | RAD REPORT ---
EXAM DESCRIPTION: RAD - Pelvis - 12/04/2020 3:19 pm CLINICAL HISTORY: TRAUMA COMPARISON: No comparisons FINDINGS: The bones are osteopenic. 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 No acute fra cture or dislocation. Contrast is present in the urinary bladder.
[2020-12-04] MEDS ORDERED: ACETAMINOPHEN 500 MG TAB PO PRN (15:35)
[2020-12-04] MEDS ORDERED: ONDANSETRON 4 MG/2 ML VIAL IV PRN (15:35)
[2020-12-04] MEDS ORDERED: ENOXAPARIN 40 MG/0.4 ML SQ SCH (17:00)
--- NOTE | 2020-12-04 17:27 | RAD REPORT ---
EXAM DESCRIPTION: MRI - Brain Wo Cont - 12/04/2020 5:12 pm CLINICAL HISTORY: WEAKNESS Headache, drowsiness COMPARISON: Head Brain Wo Cont dated 12/04/2020; MRI BRAIN W WO CONTRAST dated 01/30/2009 TECHNIQUE: Multi-sequence, multiplanar MR imaging of the brain was performed without contrast. FINDINGS: No intracranial hemorrhage, hydrocephalus or extra-axial fluid collections.Mild brain atro phy with moderate periventricular and deep white matter chronic microvascular ischemic changes. No ed silvio or shift of midline structures. No findings to suspect brain mass. 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 Subtle 3 mm focus of diffusion restriction seen left frontal lobe as well as right temporal occipital lobe. Midline structures are normally formed. The left sphenoid sinus demonstrates polypoid mucosal thickening. IMPRESSION: Tiny foci of diffusion restriction in the left frontal lobe and right temporal occipital region are equivocal for micro-infarcts.
[2020-12-04] MEDS: NA CHLORIDE 0.9% 1,000 ML IV SCH (18:00)
[2020-12-04] MEDS ORDERED: NA CHLORIDE 0.9% 1,000 ML ONE (18:22)
[2020-12-04] MEDS ORDERED: ENOXAPARIN 40 MG/0.4 ML SQ ONE (18:22)
[2020-12-04 18:44] VITALS: BMI 40.2
[2020-12-05] MEDS: CEFTRIAXONE/SWI 1gm 1 GM/10 ML SYR IVP SCH ×3 (00:37→20:36)
[2020-12-05 04:13] LABS: Absolute Lymphocytes (CBC) 1.7 K/uL (0.7-4.9); Basophils % 0.4 % (0-1.3); Hematocrit 36.4 % (36.0-45.0); Lymphocytes % 11.3 % (15.3-44.8); MPV 8.9 fL (7.6-11.3); RBC Red Blood Cell Count 4.05 M/uL (3.86-4.86)
[2020-12-05 05:10] LABS: Albumin 2.3 g/dL (3.4-5.0); Bilirubin Total 0.5 mg/dL (0.2-1.0); Magnesium 1.9 mg/dL (1.8-2.4); Phosphorus 2.9 mg/dL (2.5-4.9); Potassium 3.7 mmol/L (3.5-5.1); Prealbumin 4.8 mg/dL (20-40); Protein, Total 6.5 g/dL (6.4-8.2)
[2020-12-05] MEDS: NA CHLORIDE 0.9% 1,000 ML IV SCH ×3 (05:20→20:36)
[2020-12-05 07:15] LABS: Folic Acid, (Folate) > 20.0 ng/mL (3.1-17.5); NT PRO-BNP 421 pg/mL (<450); Thyroid Stimulating Hormone 0.349 uIU/mL (0.360-3.740)
--- NOTE | 2020-12-05 14:27 | P.HP ---
Certification for Inpatient Patient admitted to: Inpatient With expected LOS: >2 Midnights Patient will require the following post-hospital care: None Practitioner: I am a practitioner with admitting privileges, knowledge of patient current condition, hospital course, and medical plan of care. Services: Services provided to patient in accordance with Admission requirements found in Title 42 Section 412.3 of the Code of Federal Regulations Patient History Date of Service: 12/04/20 Reason for admission: Left lower extremity weakness and ataxia History of Present Illness: Patient is an 85-year-old female who presented to the hospital with generalized weakness. Patient's clinical symptoms have been gradually worsening over the last few weeks. Patient's gait is shuffled. Patient also has a slight tremor of her right upper extremity. Patient came into the emergency room for further evaluation. In the emergency room, patient's workup was essentially unremarkable except for a urinary tract infection. Patient was started on IV antibiotic therapy. Patient also given IV fluids. Patient be admitted for further evaluation. Allergies cyproheptadine HCl [From Periactin] Allergy (Verified 12/05/20 00:55) Anaphylaxis Influenza Virus Vaccines Allergy (Verified 12/05/20 03:34) Shortness of breath Penicillins Allergy (Verified 12/05/20 00:55) Rash Home Medications: Apixaban [Eliquis] 5 mg PO BID 12/05/20 Atorvastatin Calcium [Lipitor] 40 mg PO BEDTIME 12/05/20 Metformin ER [Glucophage ER] 500 mg PO DAILY 12/05/20 Metoprolol Succinate 25 mg PO BID 12/05/20 - Past Medical/Surgical History Has patient received pneumonia vaccine in the past: No Diabetic: Yes -: Type 1 diabetes -: Hypertension -: cataract sx -: hysterectomy - Family History Father Medical History: Heart disease, Stroke Mother Medical History: Heart disease, Stroke - Social History Smoking Status: Never smoker Alcohol use: No CD- Drugs: No Caffeine use: Yes Place of Residence: Home Review of Systems 10-point ROS is otherwise unremarkable Physical Examination - Vital Signs Temperature: 98.1 F Blood Pressure: 136/61 Pulse: 101 Respirations: 16 Pulse Ox (%): 93 - Physical Exam General: Alert, In no apparent distress, Oriented x3 HEENT: Atraumatic, PERRLA, Mucous membr. moist/pink, EOMI, Sclerae nonicteric Neck: Supple, 2+ carotid pulse no bruit, No LAD, Without JVD or thyroid abnormality Respiratory: Clear to auscultation bilaterally, Normal air movement Cardiovascular: Regular rate/rhythm, Normal S1 S2 Gastrointestinal: Normal bowel sounds, No tenderness Musculoskeletal: No tenderness Integumentary: No rashes Neurological: Normal speech, Normal tone, Sensation intact, Cranial nerves 3-12 intact, Normal affect, Abnormal gait, Abnormal strength (Motor is 4/5 on the left hip flexor region) Lymphatics: No axilla or inguinal lymphadenopathy Assessment & Plan - Problems (Diagnosis) (1) Generalized weakness Current Visit: Yes Status: Acute (2) Left leg weakness Current Visit: Yes Status: Acute (3) Tremor of right hand Current Visit: Yes Status: Acute (4) Urinary tract infection Current Visit: Yes Status: Acute (5) Encephalopathy Current Visit: Yes Status: Acute (6) Leukocytosis Current Visit: Yes Status: Acute (7) Parkinsons disease Current Visit: Yes Status: Acute - Plan Plan: 1. Physical therapy evaluation 2. Speech therapy evaluation 3. Anti-platelet therapy and statin therapy 4. Lipid profile in the morning 5. MRI of the brain/echocardiogram/carotid Doppler 6. Physically patient is doing well and may benefit more from outpatient physical therapy and inpatient rehab 7. Neurology consultation 8. Permissive hypertension and gradual blood pressure control 9. Neuro checks every 4 hr 10. GI and DVT prophylaxis Discharge Plan: Other Plan to discharge in: Greater than 2 days - Advance Directives Does patient have a Living Will: No Does patient have a Durable POA for Healthcare: No - Code Status/Comfort Care Code Status Assessed: Yes Code Status: Full Code Critical Care: No Time Spent Managing PTS Care (In Minutes): 45
--- NOTE | 2020-12-05 14:34 | P.PN ---
Subjective Date of Service: 12/05/20 Patient is clinically doing well with no new complaints. 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 Spoke with Neurology and they also Wanna get an MRI of the L-spine. Patient's family wants patient to try date go to a fpc facility placement. Continue physical therapy and monitor labs. Review of Systems 10-point ROS is otherwise unremarkable Physical Examination - Vital Signs Temperature: 98.1 F Blood Pressure: 136/61 Pulse: 101 Respirations: 16 Pulse Ox (%): 93 - Physical Exam General: Alert, In no apparent distress, Oriented x3 Respiratory: Diminished, Crackles/rales Cardiovascular: Regular rate/rhythm, Normal S1 S2, Systolic murmur Gastrointestinal: Normal bowel sounds, Soft and benign, Non-distended, No tenderness Musculoskeletal: No clubbing, No tenderness Neurological: Sensation intact, Cranial nerves 3-12 intact, Abnormal strength - Studies Medications List Reviewed: Yes Assessment & Plan - Problems (Diagnosis) (1) Generalized weakness Current Visit: Yes Status: Acute (2) Left leg weakness Current Visit: Yes Status: Acute (3) Tremor of right hand Current Visit: Yes Status: Acute (4) Urinary tract infection Current Visit: Yes Status: Acute (5) Encephalopathy Current Visit: Yes Status: Acute (6) Leukocytosis Current Visit: Yes Status: Acute (7) Parkinsons disease Current Visit: Yes Status: Acute - Plan Plan: 1. Physical therapy evaluation 2. Speech therapy evaluation 3. Anti-platelet therapy and statin therapy 4. Lipid profile in the morning 5. MRI of the brain/echocardiogram/carotid Doppler 6. Physically patient is doing well and may benefit more from outpatient physical therapy and inpatient rehab 7. Neurology consultation 8. Permissive hypertension and gradual blood pressure control 9. Neuro checks every 4 hr 10. GI and DVT prophylaxis - Advance Directives Does patient have a Living Will: No Does patient have a Durable POA for Healthcare: No - Code Status/Comfort Care Code Status: Full Code
[2020-12-05] MEDS: SOD FERRIC GLUC COMPLX/SUCROSE 125 MG in NA CHLORIDE 0.9% 100 ML IV SCH (15:22)
[2020-12-05] MEDS ORDERED: PNEUMOCOCCAL VACCINE 0.5 ML IMVAC ONE (20:00)
--- NOTE | 2020-12-05 23:13 | CON ---
Reason For Consultation: Consultation called because of left lower extremity weakness, that is more proximal weakness, unable to ambulate. History Of Present Illness: Ms. Burch is an 85-year-old right-handed patient, who has had m ultiple surgeries including back surgery, knee surgery, cardiac surgery, and actually in 1998, she cummings d L2-3 surgery at the lower back due to disk herniation with cord and root compression. She said she did fairly well with that. However, over the last 2 weeks, she has had progressive difficulty with ambulation. She was walking with a walker for about 2-3 years, but over the last 2 weeks, she has cummings d more difficulty getting around and a couple of days ago, she was fully unable to move the left leg at the waist. She could not bend the left thigh upwards or extend the knee, but remained strong in t he foot on the left. She also in parallel had inability to control urine, but her stool function is intact. She came to [facility] on the , yesterday. Her head CT scan showed no acute is chemic or hemorrhagic change. However, her MRI of the head done yesterday identified tiny foci in th e left frontal lobe and right temporal lobe, that were equivocal for micro infarcts. Her lumbar spin e CT scan identified moderately severe L2-3 degeneration and spondylosis. There was no acute fractur e identified, however, there was mild and more chronic appearing compression fracture at L5. She had a chest and thorax CT angiogram negative for pulmonary embolus. Pelvic x-ray was negative for any f ractures. Her laboratory studies did show elevated white count of 15 with 80% neutrophils and normal hemoglobin and hematocrit. Urinalysis showed she had 3+ esterase, 4+ ketone, 2+ blood, 2+ protein, greater than 50 bacteria. Urine culture so far showed greater than 100,000 colony-forming units of 4 + gram-negative rods suggestive of urinary tract infection. Her COVID-19 test was negative. Chest x -ray showed chronic interstitial lung pattern, no acute cardiopulmonary process is identified. Past Medical History: Type 1 diabetes, hypertension. Past Surgical History: Cataract surgery, hysterectomy, right knee replacement, lumbar L2-3 decompres tod in 1998. Family History: Heart disease, stroke in father and mother. Social History: No alcohol, tobacco, or IV drug use. She does drink caffeinated beverages. Medications: At home, Eliquis 5 mg twice daily, Lipitor 40 mg at bedtime, Glucophage 500 mg daily, m etoprolol 25 mg twice daily. Allergies: CYPROHEPTADINE, INFLUENZA VACCINE, AND PENICILLIN. Review of Systems: As indicated. Some progressive weakness, gait instability, and balance problems, requiring a walker for at least 3 years and loss of bladder control. No loss of stool control. No recent nausea, vomit ing, myalgias, but there are arthralgias. No rash. No psychiatric complaints. The other 10-point r eview of systems questioning is negative. Physical Examination: Vital Signs: Blood pressure 129/65, pulse 96, respiratory rate 16, temp 97, oxygen saturation 95% ro om air. Weight 220 pounds, height 5 feet 2 inches, BMI 40.2. GENERAL: Ms. Burch is resting in bed. She is in no acute distress. HEENT: She is normocephalic, atraumatic. Sclerae anicteric. Oropharynx pink and moist. Neck: Supple. Chest: Clear. Heart: Regular. Extremities: No significant clubbing or cyanosis. She has trace edema in lower extremities. Neurologic: She is alert, oriented to person, place, and situation. She has no cranial nerve defici ts. Normal speech. Normal labial, lingual, and guttural sounds. Motor examination, in the upper ex tremities 5/5 proximally and distally; lower extremity, in no right lower extremity 5/5 proximally an d distally, left lower extremity, hip flexion, she is around 2/5, knee extension 2 to 3/5, but foot p lantar and dorsiflexion are 5/5 bilaterally. Sensation decreased in a stocking-glove loss manner in the left compared to the right upper extremity and she has more proximal loss of sensation in the lef t lower extremity and the right lower extremity. Unable to stand and ambulate. Reflexes, she has ab out 2+ to 3 in the right knee, 0 at the left knee, and 1 on the right ankle and around 1 on the left ankle, and symmetric in upper extremities. Upper extremity coordination intact and intact coordinati on in the right lower extremity, weak to good coordination again in the lower extremity on the left s verito. Assessment: Ms. Burch is an 85-year-old patient with likely lumbar disk herniation involving L3, L2, and perhaps L4 as well with significant weakness in hip flexion, knee extension, while preserving stone t dorsi and plantar flexion, which should be L5 and S1 level. She has comorbid conditions as indicat ed including cardiovascular disease, hypertension, and likely a urinary tract infection. Plan: 1.She has received Rocephin 1 g. 2.She should be put on aspirin 81 mg daily. 3.She will require an MRI of the lumbosacral spine to more clearly define possible disk herniation i nvolvement as indicated in the left L2, L3, and L4 levels. 4.She may require surgery for decompression, however, MRI is not available until Tuesday. 5.She does have a low TSH of 0.349 and that should be further evaluated by primary care team. Noted that her procalcitonin is negative and lactic acid also negative. Her blood sugars are elevated jordana und [id number] and may be addressed by primary team. 6.As indicated, the patient should have Physical Therapy to begin improving strength in left lower e xtremity. She need MRI of the lumbar spine and aggressive management of diabetes, urinary tract infe ction, hypertension, and she will likely have a more prolonged recovery and cannot at this point go b ack home by herself where she is living. She says her children are all encumbered and not quite able to be with her at this point. WIL/MARILEE Voice ID: [id number] Report ID: [id number]
[2020-12-06] MEDS: CEFTRIAXONE/SWI 1gm 1 GM/10 ML SYR IVP SCH ×2 (07:31→20:34)
[2020-12-06] MEDS: NA CHLORIDE 0.9% 1,000 ML IV SCH (07:33)
[2020-12-06 07:50] LABS: Magnesium 1.9 mg/dL (1.8-2.4)
--- NOTE | 2020-12-06 08:01 | EKG ---
Test Date: 2020-12-04 Test Time: 11:20:03 Front Desk Person: ALP MEASUREMENT RESULTS: Intervals: Rate: 113 KS: 122 QRSD: 80 QT: 322 QTc: 441 [place]: P: 42 KS: 122 QRS: 2 T: 3 INTERPRETIVE STATEMENTS: Sinus tachycardia Nonspecific ST and T wave abnormality Abnormal ECG Compared to ECG 07/18/2018 11:18:02 Sinus rhythm no longer present Possible ischemia no longer present ST (T wave) deviation still present Electronically Signed On 12-06-20 07:58:24 CDT by Derrell Lopez
[2020-12-06] MEDS: SOD FERRIC GLUC COMPLX/SUCROSE 125 MG in NA CHLORIDE 0.9% 100 ML IV SCH (10:03)
[2020-12-06] MEDS ORDERED: GLUCAGON 1 MG/VIAL IM PRN (21:37)
[2020-12-06] MEDS ORDERED: D50W 25 GM/50 ML SYRINGE IV PRN (21:37)
[2020-12-06] MEDS: INSULIN -REGULAR HUMAN 50 UNIT/0.5 ML ML SQ SCH (23:24)
[2020-12-06] MEDS: DOCUSATE NA 100 MG CAP PO SCH (23:25)
[2020-12-07] MEDS: DOCUSATE NA 100 MG CAP PO SCH ×2 (07:27→21:56)
[2020-12-07] MEDS: CEFTRIAXONE/SWI 1gm 1 GM/10 ML SYR IVP SCH ×2 (07:27→21:30)
[2020-12-07] MEDS: INSULIN -REGULAR HUMAN 50 UNIT/0.5 ML ML SQ SCH ×4 (08:51→23:03)
[2020-12-07] MEDS: SOD FERRIC GLUC COMPLX/SUCROSE 125 MG in NA CHLORIDE 0.9% 100 ML IV SCH (09:00)
--- NOTE | 2020-12-07 20:54 | P.PN ---
Date of Service: 12/06/20 Subjective Patient is clinically doing well with no new complaints. 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 Spoke with Neurology and we will get an MRI of the L-spine. Patient's family wants patient to try date go to a nursing home facility placement. Continue physical therapy and monitor labs. Review of Systems 10-point ROS is otherwise unremarkable Physical Examination - Vital Signs Reviewed - Physical Exam General: Alert, In no apparent distress, Oriented x3 Respiratory: Diminished, Crackles/rales Cardiovascular: Regular rate/rhythm, Normal S1 S2, Systolic murmur Gastrointestinal: Normal bowel sounds, Soft and benign, Non-distended, No tenderness Musculoskeletal: No clubbing, No tenderness Neurological: Sensation intact, Cranial nerves 3-12 intact, Abnormal strength; decreased strength in the left hip flexors - Studies Medications List Reviewed: Yes Assessment & Plan - Problems (Diagnosis) (1) Generalized weakness/acute CVA Current Visit: Yes Status: Acute (2) Left leg weakness Current Visit: Yes Status: Acute (3) Tremor of right hand Current Visit: Yes Status: Acute (4) Urinary tract infection Current Visit: Yes Status: Acute (5) Encephalopathy Current Visit: Yes Status: Acute (6) Leukocytosis Current Visit: Yes Status: Acute (7) Parkinsons disease Current Visit: Yes Status: Acute - Plan Plan: Continue with plan of care as mentioned below: 1. Physical therapy evaluation 2. Speech is appropriate; tolerating diet as well 3. Anti-platelet therapy and statin therapy 4. Lipid profile in the morning 5. MRI of the brain/echocardiogram/carotid Doppler performed. MRI of the brain with multiple infarcts 6. Physically patient is doing well and may benefit more from outpatient physical therapy and inpatient rehab 7. Neurology consultation appreciated 8. Permissive hypertension and gradual blood pressure control 9. MRI of the lumbar spine 10. GI and DVT prophylaxis - Advance Directives Does patient have a Living Will: No Does patient have a Durable POA for Healthcare: No - Code Status/Comfort Care Code Status: Full Code
--- NOTE | 2020-12-08 06:17 | P.PN ---
Date of Service: 12/07/20 Subjective Patient doing well with no new complaints. Awaiting MRI of the L-spine for in the morning. This is unremarkable then go to [facility] facility. Review of Systems 10-point ROS is otherwise unremarkable Physical Examination - Vital Signs Reviewed - Physical Exam General: Alert, In no apparent distress, Oriented x3 Respiratory: Diminished, Crackles/rales Cardiovascular: Regular rate/rhythm, Normal S1 S2, Systolic murmur Gastrointestinal: Normal bowel sounds, Soft and benign, Non-distended, No tenderness Musculoskeletal: No clubbing, No tenderness Neurological: Sensation intact, Cranial nerves 3-12 intact, Abnormal strength; decreased strength in the left hip flexors - Studies Medications List Reviewed: Yes Assessment & Plan - Problems (Diagnosis) (1) Generalized weakness/acute CVA Current Visit: Yes Status: Acute (2) Left leg weakness Current Visit: Yes Status: Acute (3) Tremor of right hand Current Visit: Yes Status: Acute (4) Urinary tract infection Current Visit: Yes Status: Acute (5) Encephalopathy Current Visit: Yes Status: Acute (6) Leukocytosis Current Visit: Yes Status: Acute (7) Parkinsons disease Current Visit: Yes Status: Acute - Plan Plan: Continue with plan of care as mentioned below: 1. Physical therapy evaluation pending 2. Speech is appropriate; tolerating diet as well; not necessarily needing speech therapy eval 3. Anti-platelet therapy and statin therapy 4. Lipid profile in the morning 5. MRI of the brain/echocardiogram/carotid Doppler performed. MRI of the brain with multiple infarcts 6. Physically patient is doing well and may benefit more from outpatient physical therapy and inpatient rehab 7. Neurology consultation appreciated 8. Continue with strict blood pressure control 9. MRI of the lumbar spine 10. GI and DVT prophylaxis - Advance Directives Does patient have a Living Will: No Does patient have a Durable POA for Healthcare: No - Code Status/Comfort Care Code Status: Full Code
[2020-12-08 06:44] LABS: Absolute Lymphocytes (CBC) 2.4 K/uL (0.7-4.9); Basophils % 0.7 % (0-1.3); Hematocrit 37.5 % (36.0-45.0); Lymphocytes % 23.9 % (15.3-44.8); MPV 8.9 fL (7.6-11.3); RBC Red Blood Cell Count 4.21 M/uL (3.86-4.86)
[2020-12-08 06:59] LABS: Albumin 2.1 g/dL (3.4-5.0); Bilirubin Total 0.2 mg/dL (0.2-1.0); Phosphorus 2.7 mg/dL (2.5-4.9); Protein, Total 6.2 g/dL (6.4-8.2)
[2020-12-08 07:01] LABS: Magnesium 1.8 mg/dL (1.8-2.4); Potassium 3.4 mmol/L (3.5-5.1)
[2020-12-08] MEDS: DOCUSATE NA 100 MG CAP PO SCH (07:29)
[2020-12-08] MEDS: CEFTRIAXONE/SWI 1gm 1 GM/10 ML SYR IVP SCH (07:29)
[2020-12-08] MEDS: INSULIN -REGULAR HUMAN 50 UNIT/0.5 ML ML SQ SCH ×3 (09:00→16:39)
--- NOTE | 2020-12-08 10:35 | RAD REPORT ---
EXAM DESCRIPTION: MRI - Lumbar Spine Wo Con- 12/08/2020 10:21 am CLINICAL HISTORY: Weakness Radiculopathy COMPARISON: MRI LUMBAR SPINE W O CON dated 01/14/2011; MRI LUMBAR SPINE W O CON dated 01/30/2009 FINDINGS: Vertebral body height loss is noted affecting the L5 vertebral body superior endplate, chr onic in appearance. Vertebral body hemangioma suspected posterosuperior L1 vertebral body. No fracture is suspected. The conus medullaris terminates at a normal level. No thickening of the cauda equina or clumping of n erve roots seen. L1-2 level: Minimal posterior disc bulge with small posterior annular fissure noted centrally. Mild f acet and ligamentum flavum hypertrophy. No canal or foraminal stenosis. L2-3 level: Degenerative disc disease is present with small endplate osteophytes and asymmetric poste rior disc bulge to the right. Right lateral recess is mildly narrowed. No significant foraminal encro achment. L3-4 level: Mild posterior disc bulge is seen with mild facet hypertrophy. Mild narrowing the anterio r inferior aspects of both exit foramina. L4-5 level: Mild posterior disc bulge with small endplate osteophyte. Mild facet and ligamentum flavu m hypertrophy. No canal or foraminal stenosis. L5-S1 level: Mild facet hypertrophy. IMPRESSION: Mild right lateral recess narrowing is seen at L2-3.
--- NOTE | 2020-12-08 14:53 | P.DS ---
Admission Date: 12/04/20 Discharge Date: 12/08/20 Primary Care Provider: Cameron Cavanaugh NP Disposition: TRANSFER TO INPATIENT REHAB Discharge Condition: GOOD Reason for Admission: Left lower extremity weakness and ataxia Consultations: Neurology-Dr. Parker Procedures: COVID: Negative MRI Brain: FINDINGS: No intracranial hemorrhage, hydrocephalus or extra-axial fluid collections.Mild brain atrophy with moderate periventricular and deep white matter chronic microvascular ischemic changes. No edema or shift of midline structures. No findings to suspect brain mass. Evidence of a remote infarct seen right cerebellum. Subtle 3 mm focus of diffusion restriction seen left frontal lobe as well as right temporal occipital lobe. Midline structures are normally formed. The left sphenoid sinus demonstrates polypoid mucosal thickening. IMPRESSION: Tiny foci of diffusion restriction in the left frontal lobe and right temporal occipital region are equivocal for micro-infarcts. MRI L spine: FINDINGS: Vertebral body height loss is noted affecting the L5 vertebral body superior endplate, chronic in appearance. Vertebral body hemangioma suspected posterosuperior L1 vertebral body. No fracture is suspected. The conus medullaris terminates at a normal level. No thickening of the cauda equina or clumping of nerve roots seen. L1-2 level: Minimal posterior disc bulge with small posterior annular fissure noted centrally. Mild facet and ligamentum flavum hypertrophy. No canal or foraminal stenosis. L2-3 level: Degenerative disc disease is present with small endplate osteophytes and asymmetric posterior disc bulge to the right. Right lateral recess is mildly narrowed. No significant foraminal encroachment. L3-4 level: Mild posterior disc bulge is seen with mild facet hypertrophy. Mild narrowing the anterior inferior aspects of both exit foramina. L4-5 level: Mild posterior disc bulge with small endplate osteophyte. Mild facet and ligamentum flavum hypertrophy. No canal or foraminal stenosis. L5-S1 level: Mild facet hypertrophy. IMPRESSION: Mild right lateral recess narrowing is seen at L2-3. Medical Problem List: Difficulty with ambulation secondary to CVA with tiny foci of diffusion restriction in the left frontal lobe and right temporal occipital region equivocal for microinfarcts Degenerative disc and joint disease with mild right lateral recess narrowing seen at L2-L3 UTI, urine culture positive for Proteus Hypertension Hyperlipidemia Brief History of Present Illness: 85-year-old right-handed patient, who has had multiple surgeries including back surgery, knee surgery, cardiac surgery, and actually in 1998, she had L2-3 surgery at the lower back due to disk herniation with cord and root compression. She said she did fairly well with that. However, over the last 2 weeks, she has had progressive difficulty with ambulation. She was walking with a walker for about 2-3 years, but over the last 2 weeks, she has had more difficulty getting around and a couple of days ago, she was fully unable to move the left leg at the waist. She could not bend the left thigh upwards or extend the knee, but remained strong in the foot on the left. She also in parallel had inability to control urine, but her stool function is intact. She came to [facility] on the , yesterday. Her head CT scan showed no acute ischemic or hemorrhagic change. However, her MRI of the head done yesterday identified tiny foci in the left frontal lobe and right temporal lobe, that were equivocal for micro infarcts. Her lumbar spine CT scan identified moderately severe L2-3 degeneration and spondylosis. There was no acute fracture identified, however, there was mild and more chronic appearing compression fracture at L5. She had a chest and thorax CT angiogram negative for pulmonary embolus. Pelvic x-ray was negative for any fractures. Her laboratory studies did show elevated white count of 15 with 80% neutrophils and normal hemoglobin and hematocrit. Urinalysis showed she had 3+ esterase, 4+ ketone, 2+ blood, 2+ protein, greater than 50 bacteria. Urine culture so far showed greater than 100,000 colony-forming units of 4+ gram-negative rods suggestive of urinary tract infection. Her COVID-19 test was negative. Chest x-ray showed chronic interstitial lung pattern, no acute cardiopulmonary process is identified. Hospital Course: Patient presented with difficulty with ambulation. 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 MRI showed tiny foci of diffusion restriction in the left frontal lobe and right temporal occipital region equivocal for microinfarcts. CVA suspected. Patient was seen and evaluated by neurology. Neurology recommended to further evaluate her lumbar disc disease. Mild right lateral recess narrowing seen at L2-L3 noted. Patient was seen and evaluated by physical therapy. Physical therapy recommended inpatient rehab. Patient accepted to go to inpatient rehab to continue therapy. At discharge neurology recommended to continue current home medications of Eliquis 5 mg 1 pill twice daily, Lipitor 40 mg daily, Toprol-XL 25 mg 1 pill twice daily, and Metformin 500 mg once daily. Patient also continue with folic acid. Patient will be discharged to inpatient rehab to continue therapy. This was discussed in detail with patient and family. Advance care [id number] minutes. Patient with UTI. Urine culture was positive for Proteus. At discharge patient will continue with Levaquin 500 mg daily for 7 days. UTI prevention provided. Patient with hypertension and hyperlipidemia. As stated above patient will continue with Toprol-XL 25 mg 1 pill twice daily and Lipitor 40 mg daily. Patient with diabetes mellitus type 2 [id number]. At discharge patient may continue with Metformin 500 mg daily. Vital Signs/Physical Exam: Temp Pulse Resp BP Pulse Ox 97.2 F 102 H 18 138/63 94 12/08/20 12:00 12/08/20 12:00 12/08/20 12:00 12/08/20 12:00 12/08/20 12:00 General: Alert, In no apparent distress, Oriented x3, Cooperative HEENT: Atraumatic Neck: Supple Respiratory: Clear to auscultation bilaterally, Normal air movement Cardiovascular: Normal pulses, Regular rate/rhythm Gastrointestinal: Normal bowel sounds, No masses, No rebound, No guarding Neurological: Abnormal strength (Left sided lower weakness) Laboratory Data at Discharge: WBC 10.10 K/uL (4.3-10.9) D 12/08/20 06:10 Hgb 12.4 g/dL (12.0-15.0) 12/08/20 06:10 Hct 37.5 % (36.0-45.0) 12/08/20 06:10 Plt Count 313 K/uL (152-406) 12/08/20 06:10 PT 14.1 SECONDS (9.5-12.5) H 12/04/20 11:47 INR 1.22 12/04/20 11:47 Sodium 143 mmol/L (136-145) 12/08/20 06:10 Potassium 3.4 mmol/L (3.5-5.1) L 12/08/20 06:10 BUN 10 mg/dL (7-18) 12/08/20 06:10 Creatinine 0.65 mg/dL (0.55-1.3) 12/08/20 06:10 Glucose 327 mg/dL (74-106) H 12/08/20 06:10 Phosphorus 2.7 mg/dL (2.5-4.9) 12/08/20 06:10 Magnesium 1.8 mg/dL (1.8-2.4) 12/08/20 06:10 Total Bilirubin 0.2 mg/dL (0.2-1.0) 12/08/20 06:10 AST 16 U/L (15-37) 12/08/20 06:10 ALT 15 U/L (12-78) 12/08/20 06:10 Alkaline Phosphatase 99 U/L (45-117) 12/08/20 06:10 Triglycerides 118 mg/dL (<150) 12/06/20 06:30 Cholesterol 112 mg/dL (<200) 12/06/20 06:30 HDL Cholesterol 29 mg/dL (40-60) L 12/06/20 06:30 Cholesterol/HDL Ratio 3.86 12/06/20 06:30 Home Medications: Apixaban [Eliquis *] 5 mg PO BID 12/05/20 Atorvastatin Calcium [Lipitor] 40 mg PO BEDTIME 12/05/20 Metformin ER [Glucophage ER*] 500 mg PO DAILY 12/05/20 Metoprolol Succinate 25 mg PO BID 12/05/20 Folic Acid 1 mg PO DAILY #90 tablet 12/08/20 levoFLOXacin [Levaquin*] 500 mg PO DAILY #7 tab 12/08/20 New Medications: Folic Acid 1 mg PO DAILY #90 tablet levoFLOXacin [Levaquin*] 500 mg PO DAILY #7 tab Physician Discharge Instructions: Patient presented with difficulty with ambulation. 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 MRI showed tiny foci of diffusion restriction in the left frontal lobe and right temporal occipital region equivocal for microinfarcts. CVA suspected. Patient was seen and evaluated by neurology. Neurology recommended to further evaluate her lumbar disc disease. Mild right lateral recess narrowing seen at L2-L3 noted. Patient was seen and evaluated by physical therapy. Physical therapy recommended inpatient rehab. Patient accepted to go to inpatient rehab to continue therapy. At discharge neurology recommended to continue current home medications of Eliquis 5 mg 1 pill twice daily, Lipitor 40 mg daily, Toprol-XL 25 mg 1 pill twice daily, and Metformin 500 mg once daily. Patient also continue with folic acid. Patient will be discharged to inpatient rehab to continue therapy. This was discussed in detail with patient and family. Advance care [id number] minutes. Patient with UTI. Urine culture was positive for Proteus. At discharge patient will continue with Levaquin 500 mg daily for 7 days. UTI prevention provided. Patient with hypertension and hyperlipidemia. As stated above patient will continue with Toprol-XL 25 mg 1 pill twice daily and Lipitor 40 mg daily. Patient with diabetes mellitus type 2 [id number]. At discharge patient may continue with Metformin 500 mg daily. Diet: AHA Activity: Fall precautions Followup: Audrey Cavanaugh NP [Primary Care Provider] - Time spent managing pt's care (in minutes): 55
[2020-12-08] MEDS ORDERED: D50W 25 GM/50 ML VIAL IV PRN (16:00)
[2020-12-08 16:38] VITALS: O2SAT 85
[2020-12-08 17:22] VITALS: BP 131/64; TEMP 97.8
[2020-12-08] MEDS ORDERED: METOPROLOL XL 25 MG TAB PO SCH (21:00)
[2020-12-08] MEDS ORDERED: ATORVASTATIN 40 MG TAB PO SCH (21:00)
[2020-12-08] MEDS ORDERED: APIXABAN 5 MG TABLET PO SCH (21:00)
[2020-12-09] MEDS ORDERED: METFORMIN ER 500 MG TAB PO SCH (08:00)
[2020-12-09] MEDS ORDERED: levoFLOXacin 500 MG TAB PO SCH (09:00)
== END 2020-12-08 17:27 | DRG 64 ==
LOC: ER 10:33 → ERHOLD 15:35 → 4TH 20:25
PROVIDERS: ADMIT Hospitalist; ATTEND Family Medicine
DX: I63.9 Cerebral infarction, unspecified (principal); G92 Toxic encephalopathy; N39.0 Urinary tract infection, site not specified; Z68.41 Body mass index [BMI] 40.0-44.9, adult; E66.01 Morbid (severe) obesity due to excess calories; E11.9 Type 2 diabetes mellitus without complications; I10 Essential (primary) hypertension; E78.5 Hyperlipidemia, unspecified; G25.2 Other specified forms of tremor; M51.36 Other intervertebral disc degeneration, lumbar region; G20 Parkinson's disease; D72.829 Elevated white blood cell count, unspecified; B96.4 Proteus (mirabilis) (morganii) as the cause of diseases classified elsewhere; R53.1 Weakness; Z88.0 Allergy status to penicillin; Z88.7 Allergy status to serum and vaccine; Z79.4 Long term (current) use of insulin; Z79.01 Long term (current) use of anticoagulants; Z79.899 Other long term (current) drug therapy; Z90.710 Acquired absence of both cervix and uterus; Z96.651 Presence of right artificial knee joint; Z20.822 Contact with and (suspected) exposure to COVID-19
CPT/HCPCS: 36415; 70450; 70551; 71045; 71275; 72131; 72148; 72170; 80048; 80053; 80061; 80076; 81003; 81015; 82533; 82550; 82607; 82746; 82947; 83540; 83605; 83735; 83880; 84100; 84134; 84145; 84439; 84443; 84484; 85025; 85379; 85610; 87040; 87077; 87086; 87088; 87186; 93005; 96361; 96365; 96375; 97110; 97112; 97116; 97161; 97530; 99285; J0696; J1650; J2405; J2916; J7030; J7040; Q9967; U0003

== ENCOUNTER 2020-12-08 13:49 | Inpatient (IN) | payer OTHER ==
--- NOTE | 2020-12-08 15:52 | R.PREADM ---
PRE-ADMISSION SCREENING FORM SCREENING DATE AND TIME 12/08/2020 14:00 (CDT) ANTICIPATED REHAB ADMISSION DATE 12/10/2020 REFERRING FACILITY Doctor Office REFERRAL DATE AND TIME 12/05/2020 14:35 (CDT) REFERRAL OFFICE PHONE REFERRAL ROOM# [id number] ACUTE ADMIT DATE 12/04/2020 Previous Rehabilitation(s): No. ACUTE SORTER PRICER/DC ARMORED TRUCK DRIVER [place] REFERRING PHYSICIAN DR. LUIS M [facility] RE[facility] FAC[facility] CLINICAL LIAISON Eron Hampton PHYSICIAN REVIEWER Dr. Cristóbal Parker M.D. MR# [id number] NAME NAS BURCH ADDRESS [address] [place] [address] PHONE [facility] [id number] DATE OF 1935 AGE 85 SSN# [id number] GENDER female MARITAL STATUS RACE white PREF. LANGUAGE (IF NON-SPANISH) Kiswahili ADMIT FROM 02 - [facility] PRE-HOSPITAL LIVING SETTING 01 - Home (private home/apt. board/care, assisted living, jail, transitional living) HOME TYPE AND DETAILS Type of home: single family house # of levels in the residence: 1 # of steps to enter the residence: 1 # of steps within the residence: 2 [place] 1 [place] home has 1 step to garage, 2 steps from gar age to kitchen w/ grab bars, pt. claims her home is not big enough to accomodate a walker, and she ca nnot use a cane due to her wrists. She claims to ambulate holding to furnitures. But has not been abl e to ambulate the last 2 weeks due to weakness from waist down. PRE-HOSPITAL LIVING WITH Alone FAMILY SUPPORT No PRIMARY FAMILY CONTACT NAME Saurav Burch PRIMARY FAMILY CONTACT PHONE PRIMARY FAMILY CONTACT RELATIONSHIP Son IS PRIMARY FAMILY CONTACT AUTH. REP.? no 1ST EMERGENCY CONTACT Saurav Burch 1ST CONTACT PHONE 1ST CONTACT RELATIONSHIP Son IS 1ST CONTACT AUTH. REP.? no PHONE 2ND CONTACT ON ADM.? no PATIENT EMPLOYMENT STATUS Retired (for age) PATIENT EMPLOYER No Employer PAYOR INFORMATION: 1ST PAYOR NAME MEDICARE 1ST PAYOR PHONE 1ST PAYOR INJURY/ILLNESS DUE TO ACCIDENT? No ANOTHER GREEN PARTY RESPONSIBLE? No PRIMARY REHAB/ACUTE DIAGNOSIS: UTI, Leukocytosis, weakness secondary diagnosis of parkinsons ONSET DATE 12/04/2020 REHAB IMPAIRMENT CATEGORY (ANDREW): 20 Miscellaneous (Misc) does NOT meet 60% rule PRIMARY DIAGNOSIS-RELATED SURGERIES: No surgeries related to the primary diagnosis were performed recently. SUMMARY OF ACUTE HOSPITALIZATION: Pt. is a 85 yo Right-handed white female. On 12/04/2020 she was admitted to Doctor Office with diagnosis UTI, Leukocytosis, weakness. Her impairment category is Debility 16 - Debility (16). Pre-morbidly, Pt. was independent/mod-I in Transfers Control, Locomotion, Self-Care, Social Cognition , Sphincter Control, and Communication; and she had good Balance and Safety Awareness. Currently, she has deficits of Transfers Control, Balance, Locomotion, Safety Awareness, and Self-Car e. Pt. is now referred to [facility] for acute in-patient rehabilitation in order to maximize patient's functional independence in activities of daily living, strength, ROM, and mobi lity. Patient has realistic goal of being discharged at assistance level 5-sup to reside at Home with Fami ly/Relatives. CONSULT: Neuro consult PAST MEDICAL HISTORY Diabetes HTN UTI Encephalapathy Leukocytosis Parkansins PAST SURGICAL HISTORY: HYSTERECTOMY CATARACT MEDICATION ALLERGIES: Cyproheptadine HCI Flu Vaccine Penicillin ENVIRONMENTAL ALLERGIES: None Known - Substance Allergies None Known - Other Allergies None Known CODE STATUS: Full code WEIGHT/HEIGHT/BMI: WEIGHT 220 lbs HEIGHT 5' 2" BMI 40.2 DIET: - Diet Type Regular - Diet - Solid Texture Regular - Diet - Liquid Texture Regular - Tube Feed N/A REVIEW OF SYSTEMS: - Gen Alert and awake Lying in bed No apparent distress Oriented to: person, time, and place - Vital Signs Vital signs stable, afebrile - CVS RRR VITAL SIGNS Temperature: 97.2 F SBP/DBP: 138/63 Pulse: 102 Resp: 18 Vital signs stable, afebrile MEDICATIONS/TREATMENT: Other- See attached MAR (Medication Administration Record). CURRENT SPHINCTER CONTROL: Pre-hospital bladder status: continent Pre-hospital bowel status: continent CURRENT LOCOMOTION STATUS: distance walked 10 feet DETAILED CURRENT FUNCTIONAL STATUS: - Walking score based on distance walked: 0(N/A) score based on distance walked: 1(<=50ft) - Wheelchair score based on distance traveled: 0(N/A) QI SCORES: - Self-Care A. Eating 04-Supervision or touching assistance B. Oral hygiene 04-Supervision or touching assistance C. Toileting hygiene 03-Partial/moderate assistance E. Shower/bathe self 02-Substantial/maximal assistance F. Upper body dressing 02-Substantial/maximal assistance G. Lower body dressing 88-Not attempted due to medical condition or safety concerns H. Putting on/taking off footwear 88-Not attempted due to medical condition or safety concerns - Mobility A. Roll left and right 03-Partial/moderate assistance B. Sit to lying 03-Partial/moderate assistance C. Lying to sitting on side of bed 03-Partial/moderate assistance D. Sit to stand 03-Partial/moderate assistance E. Chair/jpa-dq-qxics transfer 03-Partial/moderate assistance F. Toilet transfer 88-Not attempted due to medical condition or safety concerns G. Car transfer 88-Not attempted due to medical condition or safety concerns I. Walk 10 feet 02-Substantial/maximal assistance J. Walk 50 feet with two turns 88-Not attempted due to medical condition or safety concerns K. Walk 150 feet 88-Not attempted due to medical condition or safety concerns L. Walking 10 feet on uneven surfaces 88-Not attempted due to medical condition or safety concerns M. 1 step (curb) 88-Not attempted due to medical condition or safety concerns N. 4 steps 88-Not attempted due to medical condition or safety concerns O. 12 steps 88-Not attempted due to medical condition or safety concerns P. Picking up object 88-Not attempted due to medical condition or safety concerns R. Wheel 50 feet with two turns 88-Not attempted due to medical condition or safety concerns S. Wheel 150 feet 88-Not attempted due to medical condition or safety concerns - Endurance Poor - Balance Poor - Safety Awareness Poor CURRENT FUNC. DEFICITS: Self-Care, Mobility, Endurance, Balance, and Safety Awareness HISTORY OF FALLS. HAS THE PATIENT HAD TWO OR MORE FALLS IN THE PAST YEAR OR ANY FALL WITH INJURY IN T HE PAST YEAR?: Yes PRIOR SURGERY. DID THE PATIENT HAVE MAJOR SURGERY DURING THE 100 DAYS PRIOR TO ADMISSION?: No THERAPY NOTES FROM ACUTE CARE: Attached. SPECIAL NEEDS: - Safety Concerns Skin breakdown precautions needed due to skin breakdown risk PATIENT NEEDS ACTIVE AND ONGOING THERAPEUTIC INTERVENTION OF MULTIPLE THERAPY DISCIPLINES, INCLUDING: - Dietary and Nutrition Adequate Nutrition. Nutritional Education. Nutritional Supplements. - Speech Therapy Memory Strategies. Speech Intelligibility Training. PATIENT NEEDS CLOSE MEDICAL SUPERVISION BY A REHABILITATION PHYSICIAN FOR: Coordination of Treatment Team PATIENT REQUIRES 24X7 REHAB NURSING FOR MEDICAL AND FUNCTIONAL MGT. OF THE FOLLOWING DEFICITS: Disease Management Medication Management Patient/Family Education Providing Safe Environment PATIENT REQUIRES INTENSIVE, COORDINATED INTERDISCIPLINARY APPROACH TO REHAB: Arranging Home Equipment/Services Discharge Planning Family Intervention/Training Diesel Fitter Mechanic/Case Management PATIENT REHAB POTENTIAL: Cameron RYAN is able and expected to receive 3 hours of individualized therapy daily on at least 5 of every 7 days Cameron RYAN's prognosis for significant practical improvement within a reasonable period of time appe ars Good Expected level of measurable improvement will be of a practical value to Cameron RYAN's functional cap acity or adaptations to impairments Has a viable Discharge Plan Medically appropriate; condition is sufficiently stable to participate in intensive rehab program DISCHARGE PLAN: - Estimated Length of Stay (days) 13. - Consensus on plan Discharge plan has been discussed with primary caregiver. Patient/Family is in agreement with the [place] n. Primary caregiver is in agreement with the plan. - Patient/Family Goals Return home with assistance. RECOMMENDED CARE LEVEL: IRF RECOMMENDATION DETAILS: Recommended Admission to Comprehensive Rehabilitation Program to Increase Functional [place] SCREENER'S COMPLETENESS CONFIRMATION: - Screening Confirmation The patient data collection on this preadmission screening form is finished PHYSICIANS REVIEW AND ADMISSION DETERMINATION Admit - Based on my review of the Pre-Admission Screening results, in my medical judgment and experie nce, I concur with the findings and recommend admission to [facility], as this patient requires an IRF level of care. SIGNATURE PANEL: Suture Winder Hand - [electronically] signed by Jana Hernandez, Piercing Artist on 12/08/2020 at 14:21 (CD T) Suture Winder Hand - [electronically] signed by Zay Hampton PT on 12/08/2020 at 15:01 (CDT) Physician Reviewer - [electronically] signed by Dr. Cristóbal Parker M.D. on 12/08/2020 at 15:51 (CDT )
--- OUTSIDE RECORDS SUMMARY | 2020-12-08 17:31 | XMS REPORT | Continuity of Care Document ---
:1935 Author Organization [facility] t Address [address] [place] [address] Care Team Providers Name Role Phone Sherry [...] Disease Active C HI [facility] 2 2 [facility] Respirator Respirator Disease Active C HI St y y 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 Center without without complicati complicati on, with on, with long-term long-term current current use of use of insulin insulin Allergies, Adverse Reactions, Alerts Allergy Allergy Status Severity Reaction(s) Onset Inactive Treating Comm ents Source Name Type Date Date Clinician Canddasiaar Propensi Active Rash 2017-[address] [facility] [facility] 2-05 [facility] - adverse 00:00: Medical reaction 00 Center s Cyprohep Propensi Active Anaphylaxis 2017-[address] tadine ty to 09-19 [facility] - adverse 00:00: Medical reaction 00 Center s Penicill Propensi Active Rash 2017-[address] [facility] ins ty to 205 [facility] - adverse 00:00: Medical reaction 00 Center s statin Adverse Active rabdo [facility] Reaction [facility] - [facility] penicill Adverse Active Info Not [facility] in Reaction Available [facility] - Memoria l [facility] Ultram Adverse Active Info Not [facility] Reaction Available [facility] - Memoria l [facility] Levemir Adverse Active shaking [facility] Flexpen Reaction [facility] - [facility] Cyprohep Adverse Active Info Not [facility] tadine Reaction Available [facility] Coreg Adverse Active dizziness [facility] Reaction [facility] - [facility] BP Meds Adverse Active sleepy, [facility] Reaction can't stay Luke s - awake [facility] Fenofibr Adverse Active muscle/joint C HI [facility] ate Reaction pain kes - Memoria [facility] NovoLog Adverse Active adverse [facility] Flexpen Reaction effect [facility] - shaking [facility] Glucopha Adverse Active name brand [facility] ge Reaction only, [facility] - diarrhea [facility] Social History Social Habit Start Date Stop Date Quantity Comments Source History [facility] - Alcohol Std Drinks [facility] History [facility] - Alcohol Binge Medical Isaac ter Sex Assigned At [facility] Tobacco use and 2018-08-11 2018-08-11 Never used [facility] Aruna kes - exposure 00:00:00 00:00:00 [facility] Alcohol intake 2018-08-11 2018-08-11 [facility] non-drinker of Medical Ce nter alcohol (finding) History [facility] 2018-07-19 2018-07-[address] [facility] - Alcohol Frequency 00:00:00 00:00:00 [facility] Smoking Status Start Date Stop Date Source Never smoker [facility] Medications Ordered Filled Start Stop Current [...] [facility] - 09:44: mouth Medical 17 daily. [facility] ascorbic 2017-08 Yes 500mg QD Take [address] acid, 2-27 mg by [facility] - vitamin C, 09:29: mouth Medica l (VITAMIN C) 25 daily. [facility] 500 MG tablet multivitami 2017-08 Yes 1{tbl} QD Take [address] n per 2-27 tablet by [facility] - tablet 09:29: mouth Medical 25 daily. [facility] cholecalcif 2017-08 Yes 1000U QD Take 1,[address] cecilia, 2-27 Units by [facility] - vitamin D3, 09:29: mouth Medic al (VITAMIN 25 daily. [facility] D3) 1,000 unit capsule mecobalamin 2017-08 Yes [...] Yes Audrey [address] 1-28 [facility] - 00:00: Memoria 00 l Outpati ent Clinics Probiotic Probiotic Yes Audrey not [facility] 1-25 Moore defined [facility] - 00:00: [facility] 00 l Out[facility] ent Clinics Aspirin Aspirin 2014-08 Yes Audrey [address] 0[facility]06 [facility] - 00:00: [facility] l Outpat[facility] ent Clinics Fish Oil Fish Oil 2014-08 Yes Audrey [address] 0-06 [facility] - 00:00: [facility] 00 l Outpati ent Clinics Docusate Docusate Yes Audrey [address] Sodium Sodium 7-28 Moore as needed [facility] - 00:00: [facility]oria 00 l Outpati ent Clinics Daily Multi Daily Multi Yes Audrey [address] Vitamin/Min Vitamin/Min Moore [facility] - erals erals Memoria l [facility] Clinics Cyanocobala Cyanocobala Yes Audrey [address] min min Moore [facility] - [facility] Digoxin Digoxin Yes Audrey [address] [facility] - [facility] Amiodarone Amiodarone Yes Audrey [address] HCl HCl Moore [facility] - [facility]oria l [facility]ics NIFEdipine NIFEdipine Yes Audrey TAKE [address] ER ER Moore TABLET BY [facility]ukes - MOUTH Memoria TWICE A l DAY [facility] Eliquis 5 Eliquis 5 Yes Audrey one [facility] mg mg Moore [facility] - [facility]oria l [facility] Metoprolol Metoprolol Yes Audrey [address] Tartrate Tartrate Moore with food L ukes [facility] l [facility] Atorvastati Atorvastati Yes Audrey [address] n Calcium n Calcium Moore Luke s - Memoria l [facility] potassium potassium Yes Audrey [address] Moore [facility] - [facility] Bumex Bumex Yes Audrey as [facility] Moore directed Lukes - Memoria l [facility]ics Humalog Humalog Yes Audrey INJECT [address] KwikPen KwikPen Moore UNITS AT Luke s - BREAKFAST, Memoria 18 UNITS l AT LUNCH, Outpati 14 UNITS ent AT DINNER Clinics BD Pen BD Pen Yes Audrey USE THREE [facility] t Needle Lulu Needle Lulu Moore TIMES [facility]ukes - U/F U/F DAILY [facility]oria l [facility] Clinics MetFORMIN MetFORMIN Yes Audrey TAKE [address] HCl ER HCl ER Moore TABLET BY Lukes - MOUTH Memoria EVERY DAY l [facility] ent Clinics Lantus Lantus Yes Audrey INJECT 50 [facility] t SoloStar SoloStar Moore UNITS IN Aruna kes - AM AND 30 Memoria UNITS IN l PM [facility] Vitamin D-3 Vitamin D-3 Yes Audrey [address] Moore [facility] - [facility]oria l [facility] Procedures This patient has no known procedures. Plan of Care Planned Activity Planned Date Details Comments Source Future Scheduled 2020-04-15 INFLUENZA VACCINE (#1) [facility] - Test 00:00:00 [code = INFLUENZA Medical Ce nter VACCINE (#1)] Future Scheduled 2019-01-[address] Aruna kes - Test 00:00:00 measurement Medical Center (procedure) [code = 28042600] Future Scheduled 2003-10-[address] [facility] ukes - Test 00:00:00 WELLNESS (YEAR 2 or Medical Center FIRST YEAR if no IPPE) [code = MEDICARE ANNUAL WELLNESS (YEAR 2 or FIRST YEAR if no IPPE)] Future Scheduled 2002 PNEUMOCOCCAL 65+ YRS [facility] - Test 00:00:00 (1 of 1 - Medical Center [id number] PCV13) [code = PNEUMOCOCCAL 65+ YRS (1 of 1 - [id number] PCV13)] Future Scheduled 1947-10-26 DIABETIC EYE EXAM [facility] - Test 00:00:00 [code = DIABETIC EYE Medical Center EXAM] Future Scheduled 1947-10-[address] [facility] es - Test 00:00:00 examination Medical Center (regime/therapy) [code = 146381887] Future Scheduled 1947-10-26 Urine screening for [facility] - Test 00:00:00 protein (procedure) Medical Center [code = 271797383] Encounters Start End Encounter Admission Attending Care Care Encounter Source Date/Time Date/Time Type Type Clinicians Facility Department ID 2020-07-23 2020-07-23 Outpatient STLMLC [facility]LMLC [id number] [facility]00 [facility] Outpati ent Clinics 2020-03-26 2020-03-26 [facility] [id number] 09:54:00 09:54:00 [employer] [place] [employer] [facility] Family Medicine l Medicine Outpati ent Clinics 2020-03-06 2020-03-06 [facility] [id number] 16:00:00 16:00:00 [employer] [place] [employer] [facility] Family Medicine l Medicine Outpati ent Clinics 2019-12-31 2019-12-31 [facility] [id number] 10:45:00 10:45:00 Davison Davison [employer] [place] [employer] [facility] Medicine l Medicine Outpati ent Clinics 2019-12-13 2019-12-13 [facility] [id number] 11:17:00 11:17:00 t [facility] Medicine Outpati ent Clinics 2019-12-12 2019-12-12 [facility] [id number] 14:21:00 14:21:00 t [facility] Medicine Outpati ent Clinics 2019-03-09 2019-03-09 [facility] [id number] 10:56:00 10:56:00 t [facility] Medicine Outpati ent Clinics 2019-03-06 2019-03-06 [facility] [id number] 14:40:00 14:40:00 t [facility] Medicine Outpati ent Clinics 2019-03-05 2019-03-05 [facility] [id number] 11:21:00 11:21:00 t [facility] Medicine Outpati ent Clinics 2018-12-05 2018-12-05 [facility] [id number] 14:40:00 14:40:00 t [facility] Medicine Outpati ent Clinics 2018-09-19 2018-09-19 [facility] [id number] 09:13:00 09:13:00 t [facility] Medicine Outpati ent Clinics 2018-09-15 2018-09-15 [facility] [id number] 09:32:00 09:32:00 t [facility] Medicine Outpati ent Clinics 2018-09-14 2018-09-14 [facility] [id number] 13:30:00 13:30:00 t [facility] Medicine Outpati ent Clinics 2018-01-19 2018-01-19 [facility] [id number] 13:32:00 13:32:00 t [facility] Medicine Outpati ent Clinics 2018-01-06 2018-01-06 [facility] [id number] 11:00:00 11:00:00 [facility] Medicine [facility] Results Test Description Test Time Test Comments Results Result Comments Source POCT-GLUCOSE METER 2018-07-28 09:24:00 Test Item Value Reference Range Interpretation Comme nts POC-GLUCOSE METER (BEAKER) (test 240 mg/dL 70-110 H TESTED AT [facility] [address] [facility]38[facility] 7703 0 POCT-GLUCOSE [id number] 22:22:00 Test Item Value Reference Range Interpretation Comments POC-GLUCOSE METER 157 mg/dL 70-110 H TESTED AT [facility] 6720 (BEAKER) (test code = EVELYNE Whipple [facility] 1538) [address] POCT-GLUCOSE [id number] 17:39:00 Test Item Value Reference Range Interpretation Comments POC-GLUCOSE METER 107 mg/dL 70-110 TESTED AT [facility] 6720 (BEAKER) (test code = EVELYNE Whipple [facility] 1538) 95151 POCT-GLUCOSE [id number] 16:03:00 Test Item Value Reference Range Interpretation Comments POC-GLUCOSE METER 235 mg/dL 70-110 H TESTED AT [facility] 6720 (BEAKER) (test code = EVELYNE Whipple [facility] 1538) 12846 POCT-GLUCOSE [id number] 10:20:00 Test Item Value Reference Range Interpretation Comments POC-GLUCOSE METER 153 mg/dL 70-110 H TESTED AT [facility] 6720 (BEAKER) (test code = EVELYNE Whipple [facility] 1538) [address] BASIC METABOLIC [id number] 07:01:00 Test Item Value Reference Range Interpretation [...] 358) GLUCOSE RANDOM 123 mg/dL 70-105 H ([facility] (test code = 652) CALCIUM ([facility] 9.3 mg/dL 8.4-10.2 (test code = 697) EGFR ([facility] (test 54 mL/min/1.73 ESTIMA ABIMAEL GFR IS code = 1092) sq m NOT ACCURATE CREATININE CLEARANCE IN PREDICTING GLOMERULAR FILTRATION RATE . ESTIMATED GFR I S NOT APPLICABLE FOR DIALYSIS PATIEN TS. POCT-GLUCOSE [id number] 22:35:00 Test Item Value Reference Range Interpretation Comments POC-GLUCOSE METER 100 mg/dL 70-110 TESTED AT [place] [address] ([facility] (test code = MIKENE R [place] 1538) [address] POCT-GLUCOSE [id number] 17:29:00 Test Item Value Reference Range Interpretation Comments POC-GLUCOSE METER 173 mg/dL 70-110 H TESTED AT [place] [address] ([facility] (test code = [employer] SolutionsANTWON R [place] 1538) [address] POCT-GLUCOSE [id number] 12:18:00 Test Item Value Reference Range Interpretation Comments POC-GLUCOSE METER 307 mg/dL 70-110 H TESTED AT [place] [address] ([facility] (test code = [facility] [place] 1538) [address] POCT-GLUCOSE [id number] 08:59:00 Test Item Value Reference Range Interpretation Comments POC-GLUCOSE METER 127 mg/dL 70-110 H TESTED AT [place] [address] ([facility] (test code = [employer] [place] SolutionsNE [place] 1538) [address] POCT-GLUCOSE [id number] 21:19:00 Test Item Value Reference Range Interpretation Comments POC-GLUCOSE METER 87 mg/dL 70-110 TESTED AT [place] [address] ([facility] (test code = [place] [address] 1538) POCT-GLUCOSE [id number] 17:44:00 Test Item Value Reference Range Interpretation Comments POC-GLUCOSE METER 122 mg/dL 70-110 H TESTED AT [place] [address] ([facility] (test code = [employer] [place] 1538) [address] POCT-GLUCOSE [id number] 12:51:00 Test Item Value Reference Range Interpretation Comments POC-GLUCOSE METER 257 mg/dL 70-110 H TESTED AT [place] [address] ([facility] (test code = EVELYNE Whipple [facility] 1538) 0[address]75 POCT-GLUCOSE [id number] 08:35:00 Test Item Value Reference Range Interpretation Comments POC-GLUCOSE METER 104 mg/dL 70-110 TESTED AT [facility] 6720 (BEAKER) (test code = EVELYNE [place] 1538) [address] [id number] 06:31:00 Test Item Value Reference Range Interpretation Comments MAGNESIUM (BEAKER) (test code = 1.8 mg/dL 1.6-2.6 627) BASIC METABOLIC [id number] 06:31:00 Test Item Value Reference Range Interpretation [...] PATIEN TS. CBC W/PLT COUNT & AUTO [id number] 06:18:00 Test Item Value Reference Range Interpretation [...] PERCENT (BEAKER) (test code = 2801) POCT-GLUCOSE [id number] 21:52:00 Test Item Value Reference Range Interpretation Comments POC-GLUCOSE METER 124 mg/dL 70-110 H TESTED AT [facility] 6720 ([facility]) (test code = EVELYNE MELGAR 1538) [address]72 POCT-GLUCOSE [id number] 16:56:00 Test Item Value Reference Range Interpretation Comments POC-GLUCOSE METER 73 mg/dL 70-110 TESTED AT [facility] 6720 (BEAKER) (test code = [facility] [address] 1538) POCT-GLUCOSE [id number] 12:58:00 Test Item Value Reference Range Interpretation Comments POC-GLUCOSE METER 188 mg/dL 70-110 H TESTED AT [facility] 6720 (BEAKER) (test code = [facility] 1538) [address] POCT-GLUCOSE [id number] 08:13:00 Test Item Value Reference Range Interpretation Comments POC-GLUCOSE METER 170 mg/dL 70-110 H TESTED AT [facility] 6720 (BEAKER) (test code = [facility] 1538) 10345 [id number] 06:11:00 Test Item Value Reference Range Interpretation Comments MAGNESIUM (BEAKER) (test code = 1.8 mg/dL 1.6-2.6 627) BASIC METABOLIC [id number] 06:11:00 Test Item Value Reference Range Interpretation [...] PATIEN TS. CBC W/PLT COUNT & AUTO [id number] 05:49:00 Test Item Value Reference Range Interpretation [...] PERCENT (BEAKER) (test code = 2801) POCT-GLUCOSE [id number] 20:43:00 Test Item Value Reference Range Interpretation Comments POC-GLUCOSE METER 222 mg/dL 70-110 H TESTED AT [place] [address] ([facility] (test code = EVELYNE Whipple [facility] 1538) [address] POCT-GLUCOSE [id number] 17:07:00 Test Item Value Reference Range Interpretation Comments POC-GLUCOSE METER 333 mg/dL 70-110 H Notified Sole Rdz MD/TESTED ([facility] (test code = AT [facility] [address] 1538) [facility] 7703 0 POCT-GLUCOSE [id number] 12:58:00 Test Item Value Reference Range Interpretation Comments POC-GLUCOSE METER 332 mg/dL 70-110 H TESTED AT [place] [address] ([facility] (test code = EVELYNE Whipple [facility] 1538) [address] RAD, CHEST, 1 VIEW, NON [id number] 10:44:00Reason for exam:->s/p CABGShould this be performed [...] Barros Verified Date/Time: 07/23/2018 10:44:04 Reading Location: [facility] C013Y CT Body Reading Room -GLUCOSE [id number] 09:14:00 Test Item Value Reference Range Interpretation Comments POC-GLUCOSE METER 261 mg/dL 70-110 H TESTED AT [place] [address] ([facility] (test code = EVELYNE Whipple [facility] 1538) [address] CBC W/PLT COUNT & AUTO [id number] 06:51:00 Test Item Value Reference Range Interpretation Comments WHITE BLOOD CELL COUNT ([facility] 12.9 K/ L 3.5-10.5 H (test code = 775) RED BLOOD CELL COUNT ([facility] 3.40 M/ L 3.93-5.22 L (test code = 761) HEMOGLOBIN ([facility] (test code = 10.0 GM/DL 11.2-15.7 L [...] 0-1 PERCENT (BEAKER) (test code = 2801) [id number] 06:30:00 Test Item Value Reference Range Interpretation Comments MAGNESIUM (BEAKER) (test code = 1.8 mg/dL 1.6-2.6 627) BASIC METABOLIC [id number] 06:30:00 Test Item Value Reference Range Interpretation [...] NOT APPLICABLE FOR DIALYSIS PATIEN TS. POCT-GLUCOSE [id number] 18:29:00 Test Item Value Reference Range Interpretation Comments POC-GLUCOSE METER 239 mg/dL 70-110 H TESTED AT [place] [address] ([facility]) (test code = [facility] 1538) [address] POCT-GLUCOSE [id number] 11:41:00 Test Item Value Reference Range Interpretation Comments POC-GLUCOSE METER 261 mg/dL 70-110 H TESTED AT [place] [address] (BEAKER) (test code = [facility] Sole [facility] 1538) 4[address] POCT-GLUCOSE [id number] 08:31:00 Test Item Value Reference Range Interpretation Comments POC-GLUCOSE METER 279 mg/dL 70-110 H TESTED AT [facility] 6720 ([facility]) (test code = [facility] Sole [facility] 1538) [address] CALCIUM, [id number] 04:40:00 Test Item Value Reference Range Interpretation Comments CALCIUM IONIZED (BEAKER) (test 1.09 mmol/L 1.12-1.27 L code = 698) PH, BLOOD (BEAKER) (test code = 7.39 1810) [id number] 04:38:00 Test Item Value Reference Range Interpretation Comments POTASSIUM (BEAKER) (test code = 4.2 meq/L 3.5-5.1 379) [id number] 04:38:00 Test Item Value Reference Range Interpretation Comments MAGNESIUM (BEAKER) (test code = 1.8 mg/dL 1.6-2.6 627) [id number] 04:38:00 Test Item Value Reference Range Interpretation Comments PHOSPHORUS (BEAKER) (test code = 2.2 mg/dL 2.3-4.7 L 604) [id number] 04:38:00 Test Item Value Reference Range Interpretation Comments GLUCOSE RANDOM (BEAKER) (test code 256 mg/dL 70-105 H = 652) BASIC METABOLIC [id number] 04:38:00 Test Item Value Reference Range Interpretation [...] PATIEN TS. CBC W/PLT COUNT & AUTO [id number] 04:15:00 Test Item Value Reference Range Interpretation [...] = 413) RAD, CHEST, 1 VIEW, NON [id number] 03:37:00while patient is intubated or has chest [...] findings: None. Signed: Jona Lance Verified Date/Time: 07/22/2018 03:37:19 Reading Location: [address] Transitional Reading Room -GLUCOSE [id number] 02:38:00 Test Item Value Reference Range Interpretation Comments POC-GLUCOSE METER 235 mg/dL 70-110 H TESTED AT [facility] 6720 ([facility] (test code = [place]ELYNE [place] 1538) [address] POCT-GLUCOSE [id number] 18:04:00 Test Item Value Reference Range Interpretation Comments POC-GLUCOSE METER 310 mg/dL 70-110 H TESTED AT [place] [address] ([facility] (test code = MIKEME Sole [facility] 1538) [address] POCT-GLUCOSE [id number] 16:56:00 Test Item Value Reference Range Interpretation Comments POC-GLUCOSE METER 306 mg/dL 70-110 H Will Repea t Test/TESTED ([facility] (test code = AT [address] 1538) [facility] 7[address] 0 POCT-GLUCOSE [id number] 16:49:00 Test Item Value Reference Range Interpretation Comments POC-GLUCOSE METER 124 mg/dL 70-110 H TESTED AT [place] [address] ([facility] (test code = [facility] 1538) [address] BLOOD GAS, [id number] 16:30:00 Test Item Value Reference Range Interpretation [...] (test code = 1819) 50.0 % POCT-GLUCOSE [id number] 09:31:00 Test Item Value Reference Range Interpretation Comments POC-GLUCOSE METER 123 mg/dL 70-110 H TESTED AT [place] [address] ([facility] (test code = [facility] Sole [facility] 1538) [address]204 POCT-GLUCOSE [id number] 08:24:00 Test Item Value Reference Range Interpretation Comments POC-GLUCOSE METER 113 mg/dL 70-110 H TESTED AT [place] [address] ([facility] (test code = [facility] 1538) 30674 POCT-GLUCOSE [id number] 07:14:00 Test Item Value Reference Range Interpretation Comments POC-GLUCOSE METER 124 mg/dL 70-110 H TESTED AT [facility] 6720 (BEAKER) (test code = EVELYNE Whipple [facility] 1538) 21611 POCT-GLUCOSE [id number] 04:06:00 Test Item Value Reference Range Interpretation Comments POC-GLUCOSE METER 95 mg/dL 70-110 TESTED AT [facility] 6720 (BEAKER) (test code = EVELYNE Whipple [facility] [address] 1538) BASIC METABOLIC [id number] 03:43:00 Test Item Value Reference Range Interpretation [...] S NOT APPLICABLE FOR DIALYSIS PATIEN TS. [id number] 03:40:00 Test Item Value Reference Range Interpretation Comments PHOSPHORUS (BEAKER) (test code = 3.0 mg/dL 2.3-4.7 604) [id number] 03:40:00 Test Item Value Reference Range Interpretation Comments MAGNESIUM (BEAKER) (test code = 2.0 mg/dL 1.6-2.6 627) RAD, CHEST, 1 VIEW, NON [id number] 03:18:00while patient is intubated or has chest [...] surgical changes.Additional findings: None. Signed: Jona Lance MDReport Verified Date/Time: 07/21/2018 03:18:23 Reading Location: [address] Transitional Reading Room CBC (HEMOGRAM ONLY)2018-07-21 [...] 0-0 (BEAKER) (test code = 413) POCT-GLUCOSE [id number] 02:40:00 Test Item Value Reference Range Interpretation Comments POC-GLUCOSE METER 124 mg/dL 70-110 H TESTED AT [place] [address] ([facility]) (test code = EVELYNE Whipple [facility] 1538) 164[address] CALCIUM, [id number] 02:37:00 Test Item Value Reference Range Interpretation Comments CALCIUM IONIZED (BEAKER) (test 1.12 mmol/L 1.12-1.27 code = 698) PH, BLOOD (BEAKER) (test code = 7.45 1810) BLOOD GAS, [id number] 02:35:00 Test Item Value Reference Range Interpretation [...] (test code = 1819) 60.0 % POCT-GLUCOSE [id number] 01:56:00 Test Item Value Reference Range Interpretation Comments POC-GLUCOSE METER 131 mg/dL 70-110 H TESTED AT [place] [address] (BEAKER) (test code = EVELYNE Whipple [facility] 1538) [address]36 POCT-GLUCOSE [id number] 23:07:00 Test Item Value Reference Range Interpretation Comments POC-GLUCOSE METER 125 mg/dL 70-110 H TESTED AT [place] [address] (BEAKER) (test code = MIKEME Sole [facility] 1538) 8[address]78 POCT-GLUCOSE [id number] 22:07:00 Test Item Value Reference Range Interpretation Comments POC-GLUCOSE METER 131 mg/dL 70-110 H TESTED AT [place] [address] ([facility]) (test code = [facility] 1538) [address] BLOOD GAS, [id number] 19:59:00 Test Item Value Reference Range Interpretation [...] code = 1819) 36.0 % HEMOGLOBIN AND [id number] 19:58:00 Test Item Value Reference Range Interpretation Comments HEMOGLOBIN (BEAKER) (test code = 9.5 GM/DL 11.2-15.7 L 410) HEMATOCRIT (BEAKER) (test code = 29.8 % 34.1-44.9 L 411) BLOOD GAS, [id number] 18:47:00 Test Item Value Reference Range Interpretation [...] code = 1819) 40.0 % BLOOD GAS, [id number] 18:32:00 Test Item Value Reference Range Interpretation [...] (test code = 1819) 45.0 % POCT-GLUCOSE [id number] 18:22:00 Test Item Value Reference Range Interpretation Comments POC-GLUCOSE METER 171 mg/dL 70-110 H TESTED AT [place] [address] ([facility]) (test code = [facility] 1538) [id number] 17:51:00 Test Item Value Reference Range Interpretation Comments POTASSIUM (BEAKER) (test code = 4.2 meq/L 3.5-5.1 379) [id number] 17:51:00 Test Item Value Reference Range Interpretation Comments MAGNESIUM (BEAKER) (test code = 2.2 mg/dL 1.6-2.6 627) BLOOD GAS, [id number] 16:56:00 Test Item Value Reference Range Interpretation [...] (test code = 1819) 70.0 % POCT-GLUCOSE [id number] 16:55:00 Test Item Value Reference Range Interpretation Comments POC-GLUCOSE METER 174 mg/dL 70-110 H TESTED AT [facility] 6720 ([facility]) (test code = [facility] 1538) [id number] POCT-GLUCOSE [id number] 15:47:00 Test Item Value Reference Range Interpretation Comments POC-GLUCOSE METER 174 mg/dL 70-110 H TESTED AT [facility] 6720 ([place]) (test code = [place] 1538) [address] RAD, CHEST, 1 VIEW, NON [id number] 14:59:00Reason for exam:->s/p CABGShould this be performed [...] well aligned. Bones are osteopenic. Signed: Meng Kendrickeptunde Verified Date/Time: 07/20/2018 14:59:20Reading Location: [facility] Radiology Reading Room [id number] 14:53:00 Test Item Value Reference Range Interpretation [...] 2.5-3.5 for patients with mechanical heart valves.PROTHROMBIN [id number] 14:52:00 Test Item Value Reference Range Interpretation [...] 0-1 PERCENT (BEAKER) (test code = 2801) [id number] 14:35:00 Test Item Value Reference Range Interpretation Comments PHOSPHORUS (BEAKER) (test code = 2.2 mg/dL 2.3-4.7 L 604) [id number] 14:35:00 Test Item Value Reference Range Interpretation Comments MAGNESIUM (BEAKER) (test code = 2.9 mg/dL 1.6-2.6 H 627) BASIC METABOLIC [id number] 14:35:00 Test Item Value Reference Range Interpretation [...] DIALYSIS PATIEN TS. LACTIC ACID, ARTERIAL, WHOLE [id number] 14:31:00 Test Item Value Reference Range Interpretation Comments LACTATE BLOOD ARTERIAL (2) 1.5 mmol/L 0.5-2.2 (BEAKER) (test code = 2874) OXYGEN SATURATION, [id number] 14:11:00 Test Item Value Reference Range Interpretation Comments O2 SATURATION (MEASURED) (BEAKER) 61.8 % (test code = 1455) GLUCOSE-STAT [id number] 14:11:00 Test Item Value Reference Range Interpretation Comments GLUCOSE RANDOM (BEAKER) (test code 171 mg/dL 70-110 H = 652) HGB/HCT (H&H) - STAT [id number] 14:11:00 Test Item Value Reference Range Interpretation Comments HEMOGLOBIN (BEAKER) (test code = 10.7 g/dL 12.0-15.0 L 410) HEMATOCRIT (BEAKER) (test code = 31.0 % 36.0-45.0 L 411) BLOOD GAS, [id number] 14:11:00 Test Item Value Reference Range Interpretation [...] (test code = 1819) 60.0 % CALCIUM, [id number] 14:10:00 Test Item Value Reference Range Interpretation Comments CALCIUM IONIZED (BEAKER) (test 1.34 mmol/L 1.12-1.27 H code = 698) PH, BLOOD (BEAKER) (test code = 7.38 1810) SODIUM NA-STAT [id number] 14:09:00 Test Item Value Reference Range Interpretation Comments SODIUM (BEAKER) (test code = 381) 140 meq/L 135-148 POTASSIUM-STAT [id number] 14:09:00 Test Item Value Reference Range Interpretation Comments POTASSIUM (BEAKER) (test code = 3.7 meq/L 3.6-5.5 379) [id number] 13:31:00 Test Item Value Reference Range Interpretation Comments ACTIVATED CLOTTING TIME 136 sec TEST ED AT [place] [address] (BEAKER) (test code = [place] [address]) [address] [id number] 13:31:00 Test Item Value Reference Range Interpretation Comments ACTIVATED CLOTTING TIME 538 sec TEST ED AT [place] [address] (BEAKER) (test code = [place] [address]) [address] [id number] 13:31:00 Test Item Value Reference Range Interpretation Comments ACTIVATED CLOTTING TIME 422 sec TEST ED AT [place] [address] (BEAKER) (test code = [place] [address]) [address] [id number] 13:31:00 Test Item Value Reference Range Interpretation Comments ACTIVATED CLOTTING TIME 494 sec TEST ED AT [place] [address] (BEAKER) (test code = [place] [address]) [address] CALCIUM, [id number] 12:43:00 Test Item Value Reference Range Interpretation Comments CALCIUM IONIZED (BEAKER) (test 1.34 mmol/L 1.12-1.27 H code = 698) PH, BLOOD (BEAKER) (test code = 7.40 1810) SODIUM NA-STAT [id number] 12:42:00 Test Item Value Reference Range Interpretation Comments SODIUM (BEAKER) (test code = 381) 136 meq/L 135-148 POTASSIUM-STAT [id number] 12:42:00 Test Item Value Reference Range Interpretation Comments POTASSIUM (BEAKER) (test code = 4.0 meq/L 3.6-5.5 379) BLOOD GAS, [id number] 12:42:00 Test Item Value Reference Range Interpretation [...] (test code = 1819) 100.0 % GLUCOSE-STAT [id number] 12:42:00 Test Item Value Reference Range Interpretation Comments GLUCOSE RANDOM (BEAKER) (test code 226 mg/dL 70-110 H = 652) HGB/HCT (H&H) - STAT [id number] 12:42:00 Test Item Value Reference Range Interpretation Comments HEMOGLOBIN (BEAKER) (test code = 8.3 g/dL 12.0-15.0 L 410) HEMATOCRIT (BEAKER) (test code = 24.0 % 36.0-45.0 L 411) SODIUM NA-STAT [id number] 12:13:00 Test Item Value Reference Range Interpretation Comments SODIUM (BEAKER) (test code = 381) 135 meq/L 135-148 POTASSIUM-STAT [id number] 12:13:00 Test Item Value Reference Range Interpretation Comments POTASSIUM (BEAKER) (test code = 4.5 meq/L 3.6-5.5 379) BLOOD GAS, [id number] 12:13:00 Test Item Value Reference Range Interpretation [...] (test code = 1819) 80.0 % GLUCOSE-STAT [id number] 12:13:00 Test Item Value Reference Range Interpretation Comments GLUCOSE RANDOM (BEAKER) (test code 241 mg/dL 70-110 H = 652) HGB/HCT (H&H) - STAT [id number] 12:13:00 Test Item Value Reference Range Interpretation Comments HEMOGLOBIN (BEAKER) (test code = 7.4 g/dL 12.0-15.0 L 410) HEMATOCRIT (BEAKER) (test code = 22.0 % 36.0-45.0 L 411) BLOOD GAS, [id number] 11:52:00 Test Item Value Reference Range Interpretation [...] (test code = 1819) 80.0 % GLUCOSE-STAT [id number] 11:52:00 Test Item Value Reference Range Interpretation Comments GLUCOSE RANDOM (BEAKER) (test code 285 mg/dL 70-110 H = 652) SODIUM NA-STAT [id number] 11:52:00 Test Item Value Reference Range Interpretation Comments SODIUM (BEAKER) (test code = 381) 133 meq/L 135-148 L HGB/HCT (H&H) - STAT [id number] 11:52:00 Test Item Value Reference Range Interpretation Comments HEMOGLOBIN (BEAKER) (test code = 7.7 g/dL 12.0-15.0 L 410) HEMATOCRIT (BEAKER) (test code = 23.0 % 36.0-45.0 L 411) POTASSIUM-STAT [id number] 11:51:00 Test Item Value Reference Range Interpretation Comments POTASSIUM (BEAKER) (test code = 5.1 meq/L 3.6-5.5 379) BLOOD GAS, [id number] 10:49:00 Test Item Value Reference Range Interpretation [...] (test code = 1819) 70.0 % GLUCOSE-STAT [id number] 10:49:00 Test Item Value Reference Range Interpretation Comments GLUCOSE RANDOM (BEAKER) (test code 245 mg/dL 70-110 H = 652) SODIUM NA-STAT [id number] 10:46:00 Test Item Value Reference Range Interpretation Comments SODIUM (BEAKER) (test code = 381) 139 meq/L 135-148 POTASSIUM-STAT [id number] 10:46:00 Test Item Value Reference Range Interpretation Comments POTASSIUM (BEAKER) (test code = 3.6 meq/L 3.6-5.5 379) HGB/HCT (H&H) - STAT [id number] 10:46:00 Test Item Value Reference Range Interpretation Comments HEMOGLOBIN (BEAKER) (test code = 12.2 g/dL 12.0-15.0 410) HEMATOCRIT (BEAKER) (test code = 36.0 % 36.0-45.0 411) CALCIUM, [id number] 10:46:00 Test Item Value Reference Range Interpretation Comments CALCIUM IONIZED (BEAKER) (test 1.12 mmol/L 1.12-1.27 code = 698) PH, BLOOD (BEAKER) (test code = 7.45 1810) HEMOGLOBIN [id number] 10:19:00 Test Item Value Reference Range Interpretation Comments HEMOGLOBIN A1C (BEAKER) (test code = 8.4 % 4.3-6.1 H 368) BLOOD GAS, [id number] 09:55:00 Test Item Value Reference Range Interpretation [...] (test code = 1819) 50.0 % GLUCOSE-STAT [id number] 09:55:00 Test Item Value Reference Range Interpretation Comments GLUCOSE RANDOM (BEAKER) (test code 260 mg/dL 70-110 H = 652) CALCIUM, [id number] 09:54:00 Test Item Value Reference Range Interpretation Comments CALCIUM IONIZED (BEAKER) (test 1.12 mmol/L 1.12-1.27 code = 698) PH, BLOOD (BEAKER) (test code = 7.45 1810) SODIUM NA-STAT [id number] 09:53:00 Test Item Value Reference Range Interpretation Comments SODIUM (BEAKER) (test code = 381) 137 meq/L 135-148 POTASSIUM-STAT [id number] 09:53:00 Test Item Value Reference Range Interpretation Comments POTASSIUM (BEAKER) (test code = 3.9 meq/L 3.6-5.5 379) HGB/HCT (H&H) - STAT [id number] 09:53:00 Test Item Value Reference Range Interpretation Comments HEMOGLOBIN (BEAKER) (test code = 12.7 g/dL 12.0-15.0 410) HEMATOCRIT (BEAKER) (test code = 37.0 % 36.0-45.0 411) POCT-GLUCOSE [id number] 08:03:00 Test Item Value Reference Range Interpretation Comments POC-GLUCOSE METER 328 mg/dL 70-110 H Baby teste d Mother ID (BEAKER) (test code = used/T ESTED AT [facility] 1538) [address] [place] [address] CBC W/PLT COUNT & AUTO [id number] 05:52:00 Test Item Value Reference Range Interpretation [...] (test code = 2801) TSH/FREE T4 IF [id number] 05:45:00 Test Item Value Reference Range Interpretation Comments THYROID STIMULATING HORMONE 1.77 uIU/mL 0.35-4.94 (BEAKER) (test code = 772) [id number] 05:25:00 Test Item Value Reference Range Interpretation Comments MAGNESIUM (BEAKER) (test code = 2.1 mg/dL 1.6-2.6 627) BASIC METABOLIC [id number] 05:25:00 Test Item Value Reference Range Interpretation [...] PATIEN TS. RAD, CHEST, 1 VIEW, NON [id number] 03:52:00Reason for exam:->Pre op Screening Should this [...] effusion or acute bony abnormality. Signed: Gus John Verified Date/Time: 07/20/2018 03:52:05 Reading Location: [address] Reading Room RAD, CHEST, 1 VIEW, NON [id number] 00:35:00Reason for exam:->sobShould this be performed at [...] No pleural effusion or pneumothorax. Osteopenia.Signed: [facility] Verified Date/Time: 07/20/2018 00:35:10 Reading Location: [address] Reading Room URINALYSIS WITH MICROSCOPIC IF [id number] 23:02:00 Test Item Value Reference Range Interpretation [...] 463) SOURCE(BEAKER) (test code = 2795) URINALYSIS [id number] 23:02:00 Test Item Value Reference Range Interpretation Comments RBC UA (BEAKER) (test code = 519) 0 /HPF WBC UA (BEAKER) (test code = 520) 1 /HPF MUCUS (BEAKER) (test code = 1574) Rare SQUAMOUS EPITHELIAL (BEAKER) (test 1 /HPF code = 516) POCT-GLUCOSE [id number] 20:44:00 Test Item Value Reference Range Interpretation Comments POC-GLUCOSE METER 328 mg/dL 70-110 H TESTED AT [facility] 6720 (BEAKER) (test code = [facility] 1538) [address] TROPONIN [id number] 19:35:00 Test Item Value Reference Range Interpretation [...] acute neurological disease, and persistent tachyarrhythmia.COMPREHENSIVE METABOLIC [id number] 19:27:00 Test Item Value Reference Range Interpretation [...] S NOT APPLICABLE FOR DIALYSIS PATIEN TS. [id number] 19:19:00 Test Item Value Reference Range Interpretation Comments PARTIAL THROMBOPLASTIN TIME 35.0 seconds 22.5-36.0 (BEAKER) (test code = 760) PROTHROMBIN [id number] 19:18:00 Test Item Value Reference Range Interpretation [...] 417) IMMATURE GRANULOCYTES-RELATIVE 0 % 0-1 PERCENT (BEAKER) (test code = 2801) POCT-GLUCOSE [id number] 16:58:00 Test Item Value Reference Range Interpretation Comments POC-GLUCOSE METER 340 mg/dL 70-110 H Baby teste d Mother ID (THERON) (test code = used/T ESTED AT [facility] 1538) [address] [facility] [address]
[2020-12-08] MEDS ORDERED: GLUCAGON 1 MG/VIAL IM PRN (18:00)
[2020-12-08] MEDS ORDERED: DOCUSATE NA/SENNA CONC 1 TAB PO PRN (18:14)
[2020-12-08] MEDS ORDERED: D50W 25 GM/50 ML VIAL IV PRN (18:15)
[2020-12-08 18:44] VITALS: BMI 40.2
[2020-12-08] MEDS: APIXABAN 5 MG TABLET PO SCH (19:09)
[2020-12-08] MEDS: ATORVASTATIN 40 MG TAB PO SCH (19:09)
[2020-12-08] MEDS: INSULIN -REGULAR HUMAN 50 UNIT/0.5 ML ML SQ SCH (19:42)
[2020-12-09] MEDS: METOPROLOL XL 25 MG TAB PO SCH ×2 (05:09→16:48)
[2020-12-09 06:21] LABS: Absolute Lymphocytes (CBC) 2.8 K/uL (0.7-4.9); Basophils % 0.7 % (0-1.3); Hematocrit 35.8 % (36.0-45.0); Lymphocytes % 26.8 % (15.3-44.8); MPV 8.8 fL (7.6-11.3); RBC Red Blood Cell Count 4.04 M/uL (3.86-4.86)
[2020-12-09 06:55] LABS: Magnesium 1.8 mg/dL (1.8-2.4); Potassium 3.4 mmol/L (3.5-5.1); Prealbumin 8.8 mg/dL (20-40)
[2020-12-09] MEDS ORDERED: METFORMIN ER 500 MG TAB PO SCH (08:00)
[2020-12-09] MEDS: ACETAMINOPHEN 500 MG TAB PO PRN (08:05)
[2020-12-09] MEDS: INSULIN -REGULAR HUMAN 50 UNIT/0.5 ML ML SQ SCH ×4 (08:06→20:05)
[2020-12-09] MEDS: FOLIC ACID 1 MG TABLET PO SCH (08:07)
[2020-12-09] MEDS: APIXABAN 5 MG TABLET PO SCH ×2 (08:07→20:05)
[2020-12-09] MEDS: levoFLOXacin 500 MG TAB PO SCH (08:53)
[2020-12-09] MEDS ORDERED: PNEUMOCOCCAL VACCINE 0.5 ML IMVAC ONE (09:00)
[2020-12-09 11:09] LABS: Blood Morphology Comment NOT SEEN (NOT SEEN); Platelet Estimate ADEQ; Platelets, Giant PRESENT; White Blood Cell Scan OK (OK)
[2020-12-09] MEDS ORDERED: POLYETHYL GLY 3350 17 GM/DOSE PO PRN (14:37)
--- NOTE | 2020-12-09 17:46 | R.HP ---
HISTORY AND PHYSICAL FACILITY: [facility] ENCOUNTER DATE AND TIME: 12/09/2020 17:40 (CDT) MR#: [id number] NAME NAS VALLEJO ADDRESS: [address] [place] [address] ROAD [facility] CITY: [place] [address] PHONE: DATE OF : 1935 AGE: 85 SSN# [id number] GENDER: Female DEXTERITY Right-handed MARITAL STATUS RACE White PRE-HOSPITAL LIVING SETTING 01 - Home (private home/apt. board/care, assisted living, custodial, transitional living) PRE-HOSPITAL LIVING WITH Alone ENCOUNTER PHYSICIAN: Dr. Cristóbal Parker M.D. REFERRING DOCTOR: DR. LUIS M CORDOBA DATE OF ADMISSION: 12/08/2020 17:26 (CDT) REFERRING FACILITY Doctor Office HOME TYPE AND DETAILS: Type of home: single family house # of levels in the residence: 1 # of steps to enter the residence: 1 # of steps within the residence: 2 [place] 1 [place] home has 1 step to garage, 2 steps from gar age to kitchen w/ grab bars, pt. claims her home is not big enough to accomodate a walker, and she ca nnot use a cane due to her wrists. She claims to ambulate holding to furnitures. But has not been abl e to ambulate the last 2 weeks due to weakness from waist down. ONSET DATE: 12/04/2020 PRIMARY DIAGNOSIS-RELATED SURGERIES: No surgeries related to the primary diagnosis were performed recently. HISTORY OF PRESENT ILLNESS (HPI): Pt. is a 85 yo Right-handed white female. On 12/04/2020 she was admitted to Doctor Office with diagnosis UTI, Leukocytosis, weakness. Her impairment category is Debility 16 - Debility (16). Pre-morbidly, Pt. was independent/mod-I in Transfers Control, Locomotion, Self-Care, Social Cognition , Sphincter Control, and Communication; and she had good Balance and Safety Awareness. Currently, she has deficits of Transfers Control, Balance, Locomotion, Safety Awareness, and Self-Car e. Pt. is now referred to [facility] for acute in-patient rehabilitation in order to maximize patient's functional independence in activities of daily living, strength, ROM, and mobi lity. Patient has realistic goal of being discharged at assistance level 5-sup to reside at Home with Fami ly/Relatives. MEDICATION ALLERGIES: Cyproheptadine HCI Flu Vaccine Penicillin ENVIRONMENTAL ALLERGIES: None Known - Substance Allergies None Known - Other Allergies None Known PAST MEDICAL HISTORY: Diabetes HTN UTI Encephalapathy Leukocytosis Parkansins PAST SURGICAL HISTORY: HYSTERECTOMY CATARACT SOCIAL HISTORY: - Home Living Alone REVIEW OF SYSTEMS: - Gen No Chills Fatigue No Fever - Eyes No Double Vision No itchiness - ENMT Difficulty Swallowing - CVS No Chest Discomfort No Chest Pain No Fatigue No Weight Gain - Resp No Cough No Shortness of Breath - GI Continent No Abdominal Pain No Constipation No Diarrhea - Continent No Kidney Pain No Painful Urination No Urinary Urgency - MSK No Joint Pain No Muscle Cramps Stiffness - Skin No Itching No Rash No Suspicious Lesions - Neuro Coordination Difficulty Difficulty with Concentration Memory Loss No Seizures Weakness - Psych No Anxiety No Depression No HIV Exposure No Persistent Infections No Seasonal Allergies - Endo No Cold/Heat Intolerance No Excessive Hunger No Excessive Thirst No Excessive Urination PHYSICAL EXAM - Gen Alert and awake Lying in bed No apparent distress Oriented to: person, time, and place - Vital Signs Vital signs stable, afebrile - Skin No breakdown Normacephalic - Eyes No abnormalities - ENMT No abnormalities - Neck No abnormalities No cervical adenopathy - CVS RRR - Chest Clear - Resp No wheezing - Abd + bowel sounds - GI Non distended - No abnormalities - Ext Mild bilateral lower extremity edema. - MSK 4+/5 weakness in both lower extremities. - Neuro No focal deficits - Psych No abnormalities VITAL SIGNS Temperature: 97.4 F SBP/DBP: 146/68 Pulse: 83 Resp: 16 NURSING: - Shower allowing shower ACTIVITIES OOB only with supervision QI SCORES: - Self-Care A. Eating 04-Supervision or touching assistance B. Oral hygiene 04-Supervision or touching assistance C. Toileting hygiene 03-Partial/moderate assistance E. Shower/bathe self 02-Substantial/maximal assistance F. Upper body dressing 02-Substantial/maximal assistance G. Lower body dressing 88-Not attempted due to medical condition or safety concerns H. Putting on/taking off footwear 88-Not attempted due to medical condition or safety concerns - Mobility A. Roll left and right 03-Partial/moderate assistance B. Sit to lying 03-Partial/moderate assistance C. Lying to sitting on side of bed 03-Partial/moderate assistance D. Sit to stand 03-Partial/moderate assistance E. Chair/esj-qd-lxgmf transfer 03-Partial/moderate assistance F. Toilet transfer 88-Not attempted due to medical condition or safety concerns G. Car transfer 88-Not attempted due to medical condition or safety concerns I. Walk 10 feet 02-Substantial/maximal assistance J. Walk 50 feet with two turns 88-Not attempted due to medical condition or safety concerns K. Walk 150 feet 88-Not attempted due to medical condition or safety concerns L. Walking 10 feet on uneven surfaces 88-Not attempted due to medical condition or safety concerns M. 1 step (curb) 88-Not attempted due to medical condition or safety concerns N. 4 steps 88-Not attempted due to medical condition or safety concerns O. 12 steps 88-Not attempted due to medical condition or safety concerns P. Picking up object 88-Not attempted due to medical condition or safety concerns R. Wheel 50 feet with two turns 88-Not attempted due to medical condition or safety concerns S. Wheel 150 feet 88-Not attempted due to medical condition or safety concerns - Endurance Poor - Balance Poor - Safety Awareness Poor CURRENT FUNC. DEFICITS: Self-Care, Mobility, Endurance, Balance, and Safety Awareness MEDICATIONS: - Other See attached MAR (Medication Administration Record) ASSESSMENT: Pt. is a 85 yo Right-handed white female.On 12/04/2020 she was admitted to Doctor Office with diagnos is UTI, Leukocytosis, weakness.Her impairment category is Debility 16 - Debility (16).Pre-morbidly, Pt. was independent/mod-I in Transfers Control, Locomotion, Self-Care, Social Cognition, Sphincter Co ntrol, and Communication; and she had good Balance and Safety Awareness.Currently, she has deficits o f Transfers Control, Balance, Locomotion, Safety Awareness, and Self-Care.Pt. is now [facility] to [facility] for acute in-patient rehabilitation in order to maximize patient's func tional independence in activities of daily living, strength, ROM, and mobility.- Rehab Goal Patient has realistic goal of being discharged at assistance level 5-sup to reside at Home with Fami ly/Relatives. REHAB PLAN: - Physical Therapy Gait dysfunction - to improve, our physical therapists will perform initial evaluation of pt's status upon admission and devise an individualized program for Gait Training, and Wheel Chair mobility Inability to transfer - to improve, our physical therapists will perform initial evaluation of pt's s tatus upon admission and devise an individualized program for Bed mobility Need for home safety evaluation - to improve, our physical therapists will perform initial evaluation of pt's status upon admission and devise an individualized program for Home Evaluation Need in caregiver upon discharge - to improve, our physical therapists will perform initial evaluatio n of pt's status upon admission and devise an individualized program for Caregiver Training Edema - to improve, our physical therapists will perform initial evaluation of pt's status upon admi ssion and devise an individualized program for Elevation Training, and Lymphedema Therapy New precaution - to improve, our physical therapists will perform initial evaluation of pt's status u balwinder admission and devise an individualized program for Patient precaution education Poor balance - to improve, our physical therapists will perform initial evaluation of pt's status upo n admission and devise an individualized program for Balance Training Weakness - to improve, our physical therapists will perform initial evaluation of pt's status upon ad mission and devise an individualized program for Aquatic Therapy, Neuromuscular Reeducation, and Stre ngthening Achieving independence - to improve, our physical therapists will perform initial evaluation of pt's status upon admission and devise an individualized program for Community Reintegration Activities - Occupational Therapy ADL deficits - to improve, our occupation therapists will perform initial evaluation of pt's status u balwinder admission and devise an individualized program for Bathing, Bed mobility, Community Reintegration , Cooking, Dressing, Eating, Fine Motor Skills, Grooming, Homemaking, Kitchen Mobility, Laundry, Louann ent Education, Safety Awareness, Splinting - Positioning, Transfers(Toilet, Tub, Shower), and Wheel C hair Management Need for healthcare analyst - to improve, our occupation therapists will perform initial evaluation of pt's s tatus upon admission and devise an individualized program for Caregiver Training Weakness - to improve, our occupation therapists will perform initial evaluation of pt's status upon admission and devise an individualized program for Aquatic Therapy, Balance, Endurance, UE ROM, and U E strengthening MEDICAL PLAN: - Diet Type Start Regular - Diet - Liquid Texture Start Regular - Tube Feed Start N/A - Other See attached MAR (Medication Administration Record) - N/A Perform Neuro consult - Diet - Solid Texture Regular - Shower shower DISCHARGE PLAN: - Estimated Length of Stay (days) 13. - Consensus on plan Discharge plan has been discussed with primary caregiver. Patient/Family is in agreement with the [place] n. Primary caregiver is in agreement with the plan. - Patient/Family Goals Return home with assistance. SIGNATURE PANEL: (CDT)
--- NOTE | 2020-12-09 17:48 | PAPE ---
POST ADMISSION PHYSICIAN EVALUATION PATIENT: [facility] MR# [id number] REFERRING DOCTOR DR. LUIS M CORDOBA EVALUATION DATE AND TIME 12/09/2020 17:47 (CDT) NAME NAS VALLEJO DATE OF 1935 AGE 85 PHONE N# [id number] GENDER female EVALUATING PHYSICIAN Dr. Cristóbal Parker M.D. ADMISSION DIAGNOSIS: UTI, Leukocytosis, weakness secondary diagnosis of parkinsons ONSET DATE 12/04/2020 POST-ADMISSION FUNCTIONAL/MEDICAL STATUS: - Walking Same Same score based on distance walked: 0(N/A) Same score based on distance walked: 1(<=50ft) - Wheelchair Same Same score based on distance traveled: 0(N/A) STATUS CHANGE EVALUATION: No change in Functional or Medical Status is identified compared with Pre-Admission screening. PATIENT NEEDS CLOSE MEDICAL SUPERVISION BY A REHABILITATION PHYSICIAN FOR: Coordination of Treatment Team PATIENT REQUIRES 24X7 REHAB NURSING FOR MEDICAL AND FUNCTIONAL MGT. OF THE FOLLOWING DEFICITS: Disease Management Medication Management Patient/Family Education Providing Safe Environment PATIENT REQUIRES INTENSIVE, COORDINATED INTERDISCIPLINARY APPROACH TO REHAB: Arranging Home Equipment/Services Discharge Planning Family Intervention/Training Intelligence Applications/Case Management LIST OF IDENTIFIED AND POTENTIAL PROBLEMS: Alteration in leisure activities Infection, Actual or Potential Mobility Impaired Pain, Alteration in Comfort Self Care Deficit Skin Integrity, Actual or Potential Urinary Tract Infection (UTI), Actual or Potential PATIENT COULD BE AT RISK FOR COMPLICATIONS FROM ADVERSE MEDICAL CONDITIONS DUE TO HIS/HER COMORBIDITI ES AND THE RIGORS OF THE INTENSIVE REHABILLITATION PROGRAM. METHODS OR INTERVENTIONS TO AVOID COMPLIC ATIONS INCLUDE: - Infection Clinical staff to assess and manage the signs and symptoms of infection including fever, redness, war mth, etc. - Urinary Tract Infection - Falls Patient will be evaluated for Fall Precautions and will be placed on Fall Precautions as indicated pe r protocol. - Skin Breakdown Nursing will assess skin daily using assessment tool and will place on Skin Breakdown Precautions as indicated per protocol. - Pain Clinical staff may employ non-medication methods such as massage, distraction, decrease stimulus, etc . as needed. Clinical staff will assess patient's pain level every shift per protocol to assess and e nsure pain management effectiveness. Medications will be given and the pain level re-assessed. PRELIMINARY PLAN OF CARE: - Physical Therapy Patient needs Physical Therapy for a daily minimum of 1.5 hours at least 5 out of 7 days, to improve: Mobility, Strengthening, Transfers, Stretching, ROM, Endurance, Ability to manage stairs, Gait, and Balance. - Speech Therapy Patient needs Speech Therapy for a daily minimum of 0.5 hours at least 5 out of 7 days, to improve: S wallowing, Cognition, Language Skills, and Compensatory Strategies. - Rehabilitation Nursing Patient requires 24x7 Rehabilitation Nursing for: Pain Issues, Identifying and preventing risk factor s, Monitoring and reporting current medical conditions, Assisting with ambulation and transfer, Wendie ting with all ADL-s, Teaching patients about disease process and medications, Family teaching, Provid ing safe environment, Bowel and Bladder Issues, Skin Integrity, and Medication Management. Patient needs Intelligence Applications and/or Case Management for: Discharge Planning, Arranging Home Equipmen t or Services, and Family Interventions. - Dietary and Nutrition Services Patient needs Dietary and Nutrition Services for: Adequate Nutrition, Nutritional Supplements, and Nu tritional Education. - Occupational Therapy Patient needs Occupational Therapy for a daily minimum of 1.5 hours at least 5 out of 7 days, to impr ove Activities of Daily Living, including: Eating, Grooming, Bathing, Dressing, Toileting, Toilet Tra nsfers, Community Reintegration, Higher functional activities, Adaptive Equipment, Splinting, Househo ld Tasks, and Other activities as determined. QI SCORES: - Self-Care A. Eating 04-Supervision or touching assistance B. Oral hygiene 04-Supervision or touching assistance C. Toileting hygiene 03-Partial/moderate assistance E. Shower/bathe self 02-Substantial/maximal assistance F. Upper body dressing 02-Substantial/maximal assistance G. Lower body dressing 88-Not attempted due to medical condition or safety concerns H. Putting on/taking off footwear 88-Not attempted due to medical condition or safety concerns - Mobility A. Roll left and right 03-Partial/moderate assistance B. Sit to lying 03-Partial/moderate assistance C. Lying to sitting on side of bed 03-Partial/moderate assistance D. Sit to stand 03-Partial/moderate assistance E. Chair/ktk-gj-ozwwr transfer 03-Partial/moderate assistance F. Toilet transfer 88-Not attempted due to medical condition or safety concerns G. Car transfer 88-Not attempted due to medical condition or safety concerns I. Walk 10 feet 02-Substantial/maximal assistance J. Walk 50 feet with two turns 88-Not attempted due to medical condition or safety concerns K. Walk 150 feet 88-Not attempted due to medical condition or safety concerns L. Walking 10 feet on uneven surfaces 88-Not attempted due to medical condition or safety concerns M. 1 step (curb) 88-Not attempted due to medical condition or safety concerns N. 4 steps 88-Not attempted due to medical condition or safety concerns O. 12 steps 88-Not attempted due to medical condition or safety concerns P. Picking up object 88-Not attempted due to medical condition or safety concerns R. Wheel 50 feet with two turns 88-Not attempted due to medical condition or safety concerns S. Wheel 150 feet 88-Not attempted due to medical condition or safety concerns - Endurance Poor - Balance Poor - Safety Awareness Poor POTENTIAL FUNCTIONAL GOALS FOR PATIENT TO ACHIEVE BY DISCHARGE: - Safety Precaution Patient will remain free from falls or injury at time of discharge. - Bed Mobility Patient will perform bed mobility at 4-Beatris level of assistance. - Transfers Patient will complete transfers from bed to chair at 4-Beatris level of assistance. - Mobility Patient will ambulate 150 ft with 4-Beatris level of assistance with RW. PATIENT REHAB POTENTIAL Cameron RYAN is able and expected to receive 3 hours of individualized therapy daily on at least 5 of every 7 days Cameron RYAN's prognosis for significant practical improvement within a reasonable period of time appe ars Good Expected level of measurable improvement will be of a practical value to Cameron RYAN's functional cap acity or adaptations to impairments Has a viable Discharge Plan Medically appropriate; condition is sufficiently stable to participate in intensive rehab program DISCHARGE PLAN: - Estimated Length of Stay (days) 13. - Consensus on plan Discharge plan has been discussed with primary caregiver. Patient/Family is in agreement with the [place] n. Primary caregiver is in agreement with the plan. - Patient/Family Goals Return home with assistance. CONCLUSION ON REHABILITATION NECESSITY: I have evaluated patient's pre-admission functional status and, comparing it to the patient's post-ad mission functional status now, I conclude that the pre-admission assessment was accurate. Patient's c ondition on admission supports the medical necessity of admission to IR[facility]. It is safe to proceed with patient's therapy program. SIGNATURE PANEL: (T)
--- NOTE | 2020-12-09 19:23 | P.CNS ---
Date of Consult: 12/09/20 Reason for Consult: painful toenails Allergies cyproheptadine HCl [From Periactin] Allergy (Verified 12/05/20 00:55) Anaphylaxis Influenza Virus Vaccines Allergy (Verified 12/05/20 03:34) Shortness of breath Penicillins Allergy (Verified 12/05/20 00:55) Rash Home Medications: Apixaban [Eliquis *] 5 mg PO BID 12/05/20 Atorvastatin Calcium [Lipitor] 40 mg PO BEDTIME 12/05/20 Metformin ER [Glucophage ER*] 500 mg PO DAILY 12/05/20 Metoprolol Succinate 25 mg PO BID 12/05/20 Folic Acid 1 mg PO DAILY #90 tablet 12/08/20 levoFLOXacin [Levaquin*] 500 mg PO DAILY #7 tab 12/08/20 - Past Medical/Surgical History Diabetic: Yes -: Type 1 diabetes -: Hypertension -: cataract sx -: hysterectomy -: Heart surgery -: Knee surgery - Family History Father Medical History: Heart disease, Stroke Mother Medical History: Heart disease, Stroke - Social History Alcohol use: No CD- Drugs: No Caffeine use: Yes Place of Residence: Home Review of Systems 10-point ROS is otherwise unremarkable Physical Examination Temp Pulse Resp BP Pulse Ox 97.4 F 83 16 146/68 H 95 12/09/20 07:41 12/09/20 16:48 12/09/20 07:41 12/09/20 16:48 12/09/20 07:41 General: Alert, In no apparent distress, Oriented x3 Cardiovascular: No edema, Abnormal pulses (1/4 dp pulse left 0/4 pt left and 0/4 dp/pt pulse right) Capillary refill: <2 Seconds Musculoskeletal: No clubbing, No swelling, No contractures, No erythema, No tenderness, No warmth Integumentary: Other (Thickened hypertrophic 1-5 right digit and left second digit toenails with subungual debris. No signs of bacterial infection. Feet are cool to touch with absent hair growth) Neurological: Sensation intact Laboratory Data (last 24 hrs) 12/09/20 05:54: Sodium 141, Potassium 3.4 L, BUN 11, Creatinine 0.67, Glucose 269 H, Magnesium 1.8 12/09/20 05:54: WBC 10.60, Hgb 12.0, Hct 35.8 L, Plt Count 325 12/09/20 05:00: Magnesium Cancelled - Problems (1) Generalized atherosclerosis Current Visit: Yes Status: Acute (2) Tinea unguium Current Visit: Yes Status: Acute (3) Onychogryphosis Current Visit: Yes Status: Acute (4) Diabetes 1.5, managed as type 2 Current Visit: No Status: Acute Conclusions/Impression: Debridement of all ten digit nails at bedside mechanically Physician Review: Patient Assessed, Agree with Above Assessment and Plan
[2020-12-09] MEDS: ATORVASTATIN 40 MG TAB PO SCH (20:04)
[2020-12-09] MEDS: METFORMIN ER 500 MG TAB PO SCH (20:04)
[2020-12-09] MEDS: DOCUSATE NA/SENNA CONC 1 TAB PO SCH (20:05)
[2020-12-10] MEDS: METOPROLOL XL 25 MG TAB PO SCH ×2 (05:24→17:24)
[2020-12-10] MEDS: INSULIN -REGULAR HUMAN 50 UNIT/0.5 ML ML SQ SCH ×4 (08:02→21:13)
[2020-12-10] MEDS: APIXABAN 5 MG TABLET PO SCH ×2 (08:03→21:12)
[2020-12-10] MEDS: FOLIC ACID 1 MG TABLET PO SCH (08:03)
[2020-12-10] MEDS: METFORMIN ER 500 MG TAB PO SCH ×2 (08:03→21:12)
[2020-12-10] MEDS: levoFLOXacin 500 MG TAB PO SCH (11:48)
[2020-12-10] MEDS ORDERED: BISACODYL 10 MG RECTAL SUPP PR PRN (13:03)
[2020-12-10] MEDS ORDERED: FLEET ENEMA ADULT PR ONE (16:00)
[2020-12-10] MEDS: ACETAMINOPHEN 500 MG TAB PO PRN (16:27)
[2020-12-10] MEDS: ONDANSETRON 4 MG (ODT) TAB PO PRN (16:37)
[2020-12-10] MEDS ORDERED: GLUCAGON 1 MG/VIAL IM PRN (17:10)
[2020-12-10] MEDS ORDERED: D50W 25 GM/50 ML VIAL IV PRN (17:19)
[2020-12-10] MEDS: JUVEN PACKET PO SCH (20:00)
[2020-12-10] MEDS: DOCUSATE NA/SENNA CONC 1 TAB PO SCH (21:11)
[2020-12-10] MEDS: ATORVASTATIN 40 MG TAB PO SCH (21:11)
[2020-12-10] MEDS: INSULIN GLARGINE 100 UNITS/ML SQ SCH (21:12)
[2020-12-10] MEDS: PHENAZOPYRIDINE 100MG TAB PO PRN (21:13)
[2020-12-11] MEDS: METOPROLOL XL 25 MG TAB PO SCH ×2 (05:48→16:34)
[2020-12-11 06:35] LABS: Absolute Lymphocytes (CBC) 2.5 K/uL (0.7-4.9); Basophils % 0.5 % (0-1.3); Hematocrit 34.8 % (36.0-45.0); Lymphocytes % 19.8 % (15.3-44.8); MPV 8.9 fL (7.6-11.3); RBC Red Blood Cell Count 3.92 M/uL (3.86-4.86)
[2020-12-11 06:41] LABS: Albumin 2.2 g/dL (3.4-5.0); Magnesium 1.8 mg/dL (1.8-2.4); Potassium 3.7 mmol/L (3.5-5.1); Prealbumin 11.3 mg/dL (20-40)
[2020-12-11] MEDS: JUVEN PACKET PO SCH ×2 (08:00→20:00)
[2020-12-11] MEDS: INSULIN -REGULAR HUMAN 50 UNIT/0.5 ML ML SQ SCH ×4 (08:21→20:56)
[2020-12-11] MEDS: INSULIN GLARGINE 100 UNITS/ML SQ SCH ×2 (08:22→20:55)
[2020-12-11] MEDS: APIXABAN 5 MG TABLET PO SCH ×2 (08:22→20:55)
[2020-12-11] MEDS: FOLIC ACID 1 MG TABLET PO SCH (08:22)
[2020-12-11] MEDS: METFORMIN ER 500 MG TAB PO SCH ×2 (08:23→20:55)
[2020-12-11] MEDS: ACETAMINOPHEN 500 MG TAB PO PRN (08:23)
[2020-12-11] MEDS: levoFLOXacin 500 MG TAB PO SCH (09:01)
[2020-12-11] MEDS: ONDANSETRON 4 MG (ODT) TAB PO PRN (12:00)
[2020-12-11] MEDS: FORMULATION-R RECTAL 30GM PR PRN (14:55)
[2020-12-11] MEDS: DOCUSATE NA/SENNA CONC 1 TAB PO SCH (20:55)
[2020-12-11] MEDS: PHENAZOPYRIDINE 100MG TAB PO PRN (20:55)
[2020-12-11] MEDS: ATORVASTATIN 40 MG TAB PO SCH (20:55)
[2020-12-12] MEDS: METOPROLOL XL 25 MG TAB PO SCH ×2 (05:15→21:00)
[2020-12-12] MEDS: FORMULATION-R RECTAL 30GM PR PRN (07:34)
[2020-12-12] MEDS: INSULIN -REGULAR HUMAN 50 UNIT/0.5 ML ML SQ SCH ×4 (07:43→21:04)
[2020-12-12] MEDS: INSULIN GLARGINE 100 UNITS/ML SQ SCH ×2 (07:44→20:58)
[2020-12-12] MEDS: ACETAMINOPHEN 500 MG TAB PO PRN (07:44)
[2020-12-12] MEDS: JUVEN PACKET PO SCH ×2 (07:45→20:58)
[2020-12-12] MEDS: FOLIC ACID 1 MG TABLET PO SCH (07:45)
[2020-12-12] MEDS: METFORMIN ER 500 MG TAB PO SCH ×2 (07:45→20:58)
[2020-12-12] MEDS: APIXABAN 5 MG TABLET PO SCH ×2 (07:45→20:57)
[2020-12-12] MEDS: levoFLOXacin 500 MG TAB PO SCH (09:18)
--- NOTE | 2020-12-12 10:01 | P.RH.PN ---
Estimated Length of Stay: 13 Expected Discharge Date: 12/20/20 Discharge Disposition Plan: Home Family Support: Yes Care Home Goal: Mobility, Transfers, Self Care Vital Signs: Last Vital Signs Temp 98.2 F 12/12/20 07:41 Pulse 83 12/12/20 07:41 Resp 16 12/12/20 07:41 BP 113/62 12/12/20 07:41 Pulse Ox 94 12/12/20 07:41 Laboratory: Laboratory Last Values WBC 12.70 K/uL (4.3-10.9) H D 12/11/20 05:59 RBC 3.92 M/uL (3.86-4.86) 12/11/20 05:59 Hgb 11.3 g/dL (12.0-15.0) L 12/11/20 05:59 Hct 34.8 % (36.0-45.0) L 12/11/20 05:59 MCV 88.8 fL (80-100) 12/11/20 05:59 MCH 28.9 pg (27.0-35.0) 12/11/20 05:59 MCHC 32.6 g/dL (32.0-36.0) 12/11/20 05:59 RDW 13.9 % (12.1-15.2) 12/11/20 05:59 Plt Count 309 K/uL (152-406) 12/11/20 05:59 MPV 8.9 fL (7.6-11.3) 12/11/20 05:59 Neutrophils % 70.5 % (41.7-73.7) 12/11/20 05:59 Lymphocytes % 19.8 % (15.3-44.8) 12/11/20 05:59 Monocytes % 8.1 % (3.3-12.3) 12/11/20 05:59 Eosinophils % 1.1 % (0-4.4) 12/11/20 05:59 Basophils % 0.5 % (0-1.3) 12/11/20 05:59 Absolute Neutrophils 9.0 K/uL (1.8-8.0) H 12/11/20 05:59 Absolute Lymphocytes 2.5 K/uL (0.7-4.9) 12/11/20 05:59 Absolute Monocytes 1.0 K/uL (0.1-1.3) 12/11/20 05:59 Absolute Eosinophils 0.1 K/uL (0-0.5) 12/11/20 05:59 Absolute Basophils 0.1 K/uL (0-0.5) 12/11/20 05:59 Platelet Estimate Adeq 12/09/20 05:54 Giant Platelets Present 12/09/20 05:54 Morphology Comment Not seen (NOT SEEN) 12/09/20 05:54 Sodium 142 mmol/L (136-145) 12/11/20 05:59 Potassium 3.7 mmol/L (3.5-5.1) 12/11/20 05:59 Chloride 105 mmol/L (98-107) 12/11/20 05:59 Carbon Dioxide 33 mmol/L (21-32) H 12/11/20 05:59 BUN 17 mg/dL (7-18) 12/11/20 05:59 Creatinine 0.71 mg/dL (0.55-1.3) 12/11/20 05:59 Estimated GFR 79 mL/min (=/>90) L 12/11/20 05:59 Glucose 193 mg/dL (74-106) H 12/11/20 05:59 POC Glucose 155 mg/dL (65-120) H 12/12/20 07:10 Calcium 8.9 mg/dL (8.5-10.1) 12/11/20 05:59 Magnesium 1.8 mg/dL (1.8-2.4) 12/11/20 05:59 Albumin 2.2 g/dL (3.4-5.0) L 12/11/20 05:59 Prealbumin 11.3 mg/dL (20-40) L 12/11/20 05:59 SARS-CoV-2 RNA (RT-PCR) Negative (NEGATIVE) 12/11/20 05:53 Smear Scan Ok (OK) 12/09/20 05:54 Weight: 220 lb Wound Present: No Closed Surgical Incision Present: No Negative Pressure Wound Therapy Present: No Physician Update: Labs reviewed and WBC is mildly elevated. Urine cultures are pending. She is doing well with balance, endurance and at contact guard to supervision with ADLs. Independent with bed mobility, 70' contact guard walking, 5 stairs with minimum assistance. Summary: Patient's care plan and half-way goals have been reviewed and revised as necessary. Please see the Rehabilitation Signature page for all necessary signatures.
[2020-12-12] MEDS: DOCUSATE NA/SENNA CONC 1 TAB PO SCH (21:01)
[2020-12-12] MEDS: ATORVASTATIN 40 MG TAB PO SCH (21:01)
[2020-12-13] MEDS: INSULIN -REGULAR HUMAN 50 UNIT/0.5 ML ML SQ SCH ×4 (07:30→20:19)
[2020-12-13] MEDS: INSULIN GLARGINE 100 UNITS/ML SQ SCH ×3 (08:00→20:20)
[2020-12-13] MEDS: JUVEN PACKET PO SCH ×2 (08:00→20:00)
[2020-12-13] MEDS: FOLIC ACID 1 MG TABLET PO SCH (08:09)
[2020-12-13] MEDS: METOPROLOL XL 25 MG TAB PO SCH ×2 (08:10→20:19)
[2020-12-13] MEDS: METFORMIN ER 500 MG TAB PO SCH ×2 (08:10→17:22)
[2020-12-13] MEDS: APIXABAN 5 MG TABLET PO SCH ×2 (08:10→20:18)
[2020-12-13] MEDS: levoFLOXacin 500 MG TAB PO SCH ×2 (10:00→12:11)
[2020-12-13] MEDS: DOCUSATE NA/SENNA CONC 1 TAB PO SCH (20:18)
[2020-12-13] MEDS: ATORVASTATIN 40 MG TAB PO SCH (20:19)
[2020-12-14 06:39] LABS: Absolute Lymphocytes (CBC) 3.1 K/uL (0.7-4.9); Basophils % 0.6 % (0-1.3); Hematocrit 33.5 % (36.0-45.0); RBC Red Blood Cell Count 3.73 M/uL (3.86-4.86)
[2020-12-14 06:55] LABS: Potassium 4.1 mmol/L (3.5-5.1)
[2020-12-14] MEDS: INSULIN -REGULAR HUMAN 50 UNIT/0.5 ML ML SQ SCH ×4 (07:30→19:48)
[2020-12-14] MEDS: JUVEN PACKET PO SCH ×2 (08:00→19:47)
[2020-12-14] MEDS: FOLIC ACID 1 MG TABLET PO SCH (08:37)
[2020-12-14] MEDS: METFORMIN ER 500 MG TAB PO SCH ×2 (08:37→16:38)
[2020-12-14] MEDS: METOPROLOL XL 25 MG TAB PO SCH ×2 (08:37→19:47)
[2020-12-14] MEDS: APIXABAN 5 MG TABLET PO SCH ×2 (08:38→19:46)
[2020-12-14] MEDS: INSULIN GLARGINE 100 UNITS/ML SQ SCH ×2 (08:38→19:47)
[2020-12-14] MEDS: levoFLOXacin 500 MG TAB PO SCH (12:39)
[2020-12-14] MEDS: ATORVASTATIN 40 MG TAB PO SCH (19:46)
[2020-12-14] MEDS: DOCUSATE NA/SENNA CONC 1 TAB PO SCH (19:46)
[2020-12-15] MEDS: INSULIN -REGULAR HUMAN 50 UNIT/0.5 ML ML SQ SCH ×4 (07:30→20:51)
[2020-12-15] MEDS: JUVEN PACKET PO SCH ×2 (08:00→20:00)
[2020-12-15] MEDS: INSULIN GLARGINE 100 UNITS/ML SQ SCH ×2 (08:10→20:57)
[2020-12-15] MEDS: ACETAMINOPHEN 500 MG TAB PO PRN (08:11)
[2020-12-15] MEDS: FORMULATION-R RECTAL 30GM PR PRN (08:11)
[2020-12-15] MEDS: METFORMIN ER 500 MG TAB PO SCH ×2 (08:12→17:29)
[2020-12-15] MEDS: FOLIC ACID 1 MG TABLET PO SCH (08:12)
[2020-12-15] MEDS: APIXABAN 5 MG TABLET PO SCH ×2 (08:12→20:56)
[2020-12-15] MEDS: METOPROLOL XL 25 MG TAB PO SCH ×2 (08:12→20:56)
[2020-12-15] MEDS: levoFLOXacin 500 MG TAB PO SCH (12:06)
--- NOTE | 2020-12-15 18:26 | R.PN ---
PROGRESS NOTES ENCOUNTER DATE AND TIME: 12/15/2020 18:21 (CDT) NAME NAS VALLEJO DATE OF : 1935 DATE OF ADMISSION: 12/08/2020 17:26 (CDT) UTI, Leukocytosis, weaknesssecondary diagnosis of parkinsonsCHIEF COMPLAINT: Debility SUBJECTIVE: Pt denied any depression. Pt denied any Shortness of Breath. Ambulated 450' with contact guard assistance. WBC now normal at 8.1., Hgb 10.9. Glucose 152 to 206. COVID-19 test is negative. VITAL SIGNS Temperature: 98.0 F SBP/DBP: 133/71 Pulse: 83 Resp: 16 MEDICATION ALLERGIES: Cyproheptadine HCI Flu Vaccine Penicillin ENVIRONMENTAL ALLERGIES: None Known - Substance Allergies None Known - Other Allergies None Known CONSULT: Perform Neuro consult NURSING: - Shower allowing shower ACTIVITIES OOB only with supervision THERAPIES: - Dietary and Nutrition Adequate Nutrition. Nutritional Education. Nutritional Supplements. - Speech Therapy Memory Strategies. Speech Intelligibility Training. PHYSICAL EXAM - Gen Alert and awake Lying in bed No apparent distress Oriented to: person, time, and place - Vital Signs Vital signs stable, afebrile - Skin No breakdown Normacephalic - Eyes No abnormalities - ENMT No abnormalities - Neck No abnormalities No cervical adenopathy - CVS RRR - Chest Clear - Resp No wheezing - Abd + bowel sounds - GI Non distended - No abnormalities - Ext Mild bilateral lower extremity edema. - MSK 4+/5 weakness in both lower extremities. - Neuro No focal deficits - Psych No abnormalities ASSESSMENT: Pt. is a 85 yo Right-handed white female.On 12/04/2020 she was admitted to Doctor Office with diagnos is UTI, Leukocytosis, weakness.Her impairment category is Debility 16 - Debility (16).Pre-morbidly, Pt. was independent/mod-I in Transfers Control, Locomotion, Self-Care, Social Cognition, Sphincter Co ntrol, and Communication; and she had good Balance and Safety Awareness.Currently, she has deficits o f Transfers Control, Balance, Locomotion, Safety Awareness, and Self-Care.Pt. is now [facility] to [facility] for acute in-patient rehabilitation in order to maximize patient's func tional independence in activities of daily living, strength, ROM, and mobility.- Rehab Goal Patient has realistic goal of being discharged at assistance level 5-sup to reside at Home with Fami ly/Relatives. MDM/PLAN: - Physical Therapy Gait dysfunction - to improve, our physical therapists will perform initial evaluation of pt's statu s upon admission and devise an individualized program for Gait Training, and Wheel Chair mobility Inability to transfer - to improve, our physical therapists will perform initial evaluation of pt's status upon admission and devise an individualized program for Bed mobility Need for home safety evaluation - to improve, our physical therapists will perform initial evaluatio n of pt's status upon admission and devise an individualized program for Home Evaluation Need in caregiver upon discharge - to improve, our physical therapists will perform initial evaluati on of pt's status upon admission and devise an individualized program for Caregiver Training Edema - to improve, our physical therapists will perform initial evaluation of pt's status upon admi ssion and devise an individualized program for Elevation Training, and Lymphedema Therapy New precaution - to improve, our physical therapists will perform initial evaluation of pt's status upon admission and devise an individualized program for Patient precaution education Poor balance - to improve, our physical therapists will perform initial evaluation of pt's status up on admission and devise an individualized program for Balance Training Weakness - to improve, our physical therapists will perform initial evaluation of pt's status upon a dmission and devise an individualized program for Aquatic Therapy, Neuromuscular Reeducation, and Str engthening Achieving independence - to improve, our physical therapists will perform initial evaluation of pt's status upon admission and devise an individualized program for Community Reintegration Activities - Occupational Therapy ADL deficits - to improve, our occupation therapists will perform initial evaluation of pt's status upon admission and devise an individualized program for Bathing, Bed mobility, Community Reintegratio n, Cooking, Dressing, Eating, Fine Motor Skills, Grooming, Homemaking, Kitchen Mobility, Laundry, Pat ient Education, Safety Awareness, Splinting - Positioning, Transfers(Toilet, Tub, Shower), and Wheel Chair Management Need for resident care aide - to improve, our occupation therapists will perform initial evaluation of pt's status upon admission and devise an individualized program for Caregiver Training Weakness - to improve, our occupation therapists will perform initial evaluation of pt's status upon admission and devise an individualized program for Aquatic Therapy, Balance, Endurance, UE ROM, and UE strengthening - Other See attached MAR (Medication Administration Record) - Diet Type Continue Regular - Diet - Liquid Texture Continue Regular - Tube Feed Continue N/A - N/A Perform Neuro consult - Diet - Solid Texture Continue Regular - Shower allowing shower FUNCTIONAL STATUS: UPDATED AT WEEKLY TEAM CONFERENCE - Walking Same Same score based on distance walked: 0(N/A) Same score based on distance walked: 1(<=50ft) - Wheelchair Same Same score based on distance traveled: 0(N/A) FUNCTIONAL STATUS: - Self-Care A. Eating Memo B. Grooming Memo C. Bathing Beatris D. Dressing - Upper sup E. Dressing - Lower Beatris F. Toileting sup - Sphincter Control G. Bladder control sup H. Bowel control sup - Transfers Control I. Bed/Chair/Wheelchair Beatris J. Toilet Beatris K. Tub/Shower modA - Locomotion L. Walk/Wheelchair (B) Beatris M. Stairs ADNO - Communication N. Comprehension (B) sup O. Expression (B) sup - Social Cognition P. Social Interaction Memo Q. Problem Solving Memo R. Memory sup - Endurance Fair - Balance Fair - Safety Awareness Fair QI SCORES: - Self-Care A. Eating 04-Supervision or touching assistance B. Oral hygiene 04-Supervision or touching assistance C. Toileting hygiene 03-Partial/moderate assistance E. Shower/bathe self 02-Substantial/maximal assistance F. Upper body dressing 02-Substantial/maximal assistance G. Lower body dressing 88-Not attempted due to medical condition or safety concerns H. Putting on/taking off footwear 88-Not attempted due to medical condition or safety concerns - Mobility A. Roll left and right 03-Partial/moderate assistance B. Sit to lying 03-Partial/moderate assistance C. Lying to sitting on side of bed 03-Partial/moderate assistance D. Sit to stand 03-Partial/moderate assistance E. Chair/[id number] transfer 03-Partial/moderate assistance F. Toilet transfer 88-Not attempted due to medical condition or safety concerns G. Car transfer 88-Not attempted due to medical condition or safety concerns I. Walk 10 feet 02-Substantial/maximal assistance J. Walk 50 feet with two turns 88-Not attempted due to medical condition or safety concerns K. Walk 150 feet 88-Not attempted due to medical condition or safety concerns L. Walking 10 feet on uneven surfaces 88-Not attempted due to medical condition or safety concerns M. 1 step (curb) 88-Not attempted due to medical condition or safety concerns N. 4 steps 88-Not attempted due to medical condition or safety concerns O. 12 steps 88-Not attempted due to medical condition or safety concerns P. Picking up object 88-Not attempted due to medical condition or safety concerns R. Wheel 50 feet with two turns 88-Not attempted due to medical condition or safety concerns S. Wheel 150 feet 88-Not attempted due to medical condition or safety concerns - Endurance Poor - Balance Poor - Safety Awareness Poor [facility]: Self-Care, Mobility, Endurance, Balance, and Safety Awareness SIGNATURE PANEL: (CDT)
[2020-12-15] MEDS: DOCUSATE NA/SENNA CONC 1 TAB PO SCH (20:56)
[2020-12-15] MEDS: ATORVASTATIN 40 MG TAB PO SCH (20:56)
[2020-12-16] MEDS: INSULIN -REGULAR HUMAN 50 UNIT/0.5 ML ML SQ SCH ×4 (07:30→21:00)
[2020-12-16] MEDS: JUVEN PACKET PO SCH ×2 (08:00→20:00)
[2020-12-16] MEDS: APIXABAN 5 MG TABLET PO SCH ×2 (08:36→21:36)
[2020-12-16] MEDS: FORMULATION-R RECTAL 30GM PR PRN (08:36)
[2020-12-16] MEDS: INSULIN GLARGINE 100 UNITS/ML SQ SCH ×2 (08:36→21:36)
[2020-12-16] MEDS: METFORMIN ER 500 MG TAB PO SCH ×2 (08:37→17:27)
[2020-12-16] MEDS: METOPROLOL XL 25 MG TAB PO SCH ×2 (08:37→21:35)
[2020-12-16] MEDS: FOLIC ACID 1 MG TABLET PO SCH (08:37)
[2020-12-16] MEDS ORDERED: TUBERCULIN PPD 5 TU/0.1 ML ID SCH (16:00)
--- NOTE | 2020-12-16 18:27 | R.PN ---
PROGRESS NOTES ENCOUNTER DATE AND TIME: 12/16/2020 18:23 (CDT) NAME NAS VALLEJO DATE OF : 1935 DATE OF ADMISSION: 12/08/2020 17:26 (CDT) UTI, Leukocytosis, weaknesssecondary diagnosis of parkinsonsCHIEF COMPLAINT: Debility SUBJECTIVE: Pt denied any depression. Pt denied any Shortness of Breath. Up and down 20 steps with standby assistance. Ambulated 150' with contact guard assistance. WBC now normal at 8.1., Hgb 10.9. Glucose 152 to 206. COVID-19 test is negative. VITAL SIGNS Temperature: 97.8 F SBP/DBP: 128/66 Pulse: 80 Resp: 16 MEDICATION ALLERGIES: Cyproheptadine HCI Flu Vaccine Penicillin ENVIRONMENTAL ALLERGIES: None Known - Substance Allergies None Known - Other Allergies None Known CONSULT: Perform Neuro consult NURSING: - Shower allowing shower ACTIVITIES OOB only with supervision THERAPIES: - Dietary and Nutrition Adequate Nutrition. Nutritional Education. Nutritional Supplements. - Speech Therapy Memory Strategies. Speech Intelligibility Training. PHYSICAL EXAM - Gen Alert and awake Lying in bed No apparent distress Oriented to: person, time, and place - Vital Signs Vital signs stable, afebrile - Skin No breakdown Normacephalic - Eyes No abnormalities - ENMT No abnormalities - Neck No abnormalities No cervical adenopathy - CVS RRR - Chest Clear - Resp No wheezing - Abd + bowel sounds - GI Non distended - No abnormalities - Ext Mild bilateral lower extremity edema. - MSK 4+/5 weakness in both lower extremities. - Neuro No focal deficits - Psych No abnormalities ASSESSMENT: Pt. is a 85 yo Right-handed white female.On 12/04/2020 she was admitted to Doctor Office with diagnos is UTI, Leukocytosis, weakness.Her impairment category is Debility 16 - Debility (16).Pre-morbidly, Pt. was independent/mod-I in Transfers Control, Locomotion, Self-Care, Social Cognition, Sphincter Co ntrol, and Communication; and she had good Balance and Safety Awareness.Currently, she has deficits o f Transfers Control, Balance, Locomotion, Safety Awareness, and Self-Care.Pt. is now referred to [facility] for acute in-patient rehabilitation in order to maximize patient's func tional independence in activities of daily living, strength, ROM, and mobility.- Rehab Goal Patient has realistic goal of being discharged at assistance level 5-sup to reside at Home with Fami ly/Relatives. MDM/PLAN: - Physical Therapy Gait dysfunction - to improve, our physical therapists will perform initial evaluation of pt's statu s upon admission and devise an individualized program for Gait Training, and Wheel Chair mobility Inability to transfer - to improve, our physical therapists will perform initial evaluation of pt's status upon admission and devise an individualized program for Bed mobility Need for home safety evaluation - to improve, our physical therapists will perform initial evaluatio n of pt's status upon admission and devise an individualized program for Home Evaluation Need in caregiver upon discharge - to improve, our physical therapists will perform initial evaluati on of pt's status upon admission and devise an individualized program for Caregiver Training Edema - to improve, our physical therapists will perform initial evaluation of pt's status upon admi ssion and devise an individualized program for Elevation Training, and Lymphedema Therapy New precaution - to improve, our physical therapists will perform initial evaluation of pt's status upon admission and devise an individualized program for Patient precaution education Poor balance - to improve, our physical therapists will perform initial evaluation of pt's status up on admission and devise an individualized program for Balance Training Weakness - to improve, our physical therapists will perform initial evaluation of pt's status upon a dmission and devise an individualized program for Aquatic Therapy, Neuromuscular Reeducation, and Str engthening Achieving independence - to improve, our physical therapists will perform initial evaluation of pt's status upon admission and devise an individualized program for Community Reintegration Activities - Occupational Therapy ADL deficits - to improve, our occupation therapists will perform initial evaluation of pt's status upon admission and devise an individualized program for Bathing, Bed mobility, Community Reintegratio n, Cooking, Dressing, Eating, Fine Motor Skills, Grooming, Homemaking, Kitchen Mobility, Laundry, Pat ient Education, Safety Awareness, Splinting - Positioning, Transfers(Toilet, Tub, Shower), and Wheel Chair Management Need for child care coordinator - to improve, our occupation therapists will perform initial evaluation of pt's status upon admission and devise an individualized program for Caregiver Training Weakness - to improve, our occupation therapists will perform initial evaluation of pt's status upon admission and devise an individualized program for Aquatic Therapy, Balance, Endurance, UE ROM, and UE strengthening - Other See attached MAR (Medication Administration Record) - Diet Type Continue Regular - Diet - Liquid Texture Continue Regular - Tube Feed Continue N/A - N/A Perform Neuro consult - Diet - Solid Texture Continue Regular - Shower allowing shower FUNCTIONAL STATUS: UPDATED AT WEEKLY TEAM CONFERENCE - Walking Same Same score based on distance walked: 0(N/A) Same score based on distance walked: 1(<=50ft) - Wheelchair Same Same score based on distance traveled: 0(N/A) FUNCTIONAL STATUS: - Self-Care A. Eating Memo B. Grooming Memo C. Bathing Beatris D. Dressing - Upper sup E. Dressing - Lower Beatris F. Toileting sup - Sphincter Control G. Bladder control sup H. Bowel control sup - Transfers Control I. Bed/Chair/Wheelchair Beatris J. Toilet Beatris K. Tub/Shower modA - Locomotion L. Walk/Wheelchair (B) Beatris M. Stairs ADNO - Communication N. Comprehension (B) sup O. Expression (B) sup - Social Cognition P. Social Interaction Memo Q. Problem Solving Memo R. Memory sup - Endurance Fair - Balance Fair - Safety Awareness Fair QI SCORES: - Self-Care A. Eating 04-Supervision or touching assistance B. Oral hygiene 04-Supervision or touching assistance C. Toileting hygiene 03-Partial/moderate assistance E. Shower/bathe self 02-Substantial/maximal assistance F. Upper body dressing 02-Substantial/maximal assistance G. Lower body dressing 88-Not attempted due to medical condition or safety concerns H. Putting on/taking off footwear 88-Not attempted due to medical condition or safety concerns - Mobility A. Roll left and right 03-Partial/moderate assistance B. Sit to lying 03-Partial/moderate assistance C. Lying to sitting on side of bed 03-Partial/moderate assistance D. Sit to stand 03-Partial/moderate assistance E. Chair/gkf-vz-[id number] transfer 03-Partial/moderate assistance F. Toilet transfer 88-Not attempted due to medical condition or safety concerns G. Car transfer 88-Not attempted due to medical condition or safety concerns I. Walk 10 feet 02-Substantial/maximal assistance J. Walk 50 feet with two turns 88-Not attempted due to medical condition or safety concerns K. Walk 150 feet 88-Not attempted due to medical condition or safety concerns L. Walking 10 feet on uneven surfaces 88-Not attempted due to medical condition or safety concerns M. 1 step (curb) 88-Not attempted due to medical condition or safety concerns N. 4 steps 88-Not attempted due to medical condition or safety concerns O. 12 steps 88-Not attempted due to medical condition or safety concerns P. Picking up object 88-Not attempted due to medical condition or safety concerns R. Wheel 50 feet with two turns 88-Not attempted due to medical condition or safety concerns S. Wheel 150 feet 88-Not attempted due to medical condition or safety concerns - Endurance Poor - Balance Poor - Safety Awareness Poor [facility] DEFICITS: Self-Care, Mobility, Endurance, Balance, and Safety Awareness SIGNATURE PANEL: (CDT)
[2020-12-16] MEDS: DOCUSATE NA/SENNA CONC 1 TAB PO SCH (21:35)
[2020-12-16] MEDS: ATORVASTATIN 40 MG TAB PO SCH (21:36)
[2020-12-17] MEDS: INSULIN -REGULAR HUMAN 50 UNIT/0.5 ML ML SQ SCH ×4 (07:01→19:46)
[2020-12-17] MEDS: JUVEN PACKET PO SCH ×2 (07:31→19:46)
[2020-12-17] MEDS: METFORMIN ER 500 MG TAB PO SCH ×2 (07:31→17:25)
[2020-12-17] MEDS: FOLIC ACID 1 MG TABLET PO SCH (07:31)
[2020-12-17] MEDS: METOPROLOL XL 25 MG TAB PO SCH ×2 (07:31→19:46)
[2020-12-17] MEDS: APIXABAN 5 MG TABLET PO SCH ×2 (07:31→19:45)
[2020-12-17] MEDS: INSULIN GLARGINE 100 UNITS/ML SQ SCH ×2 (07:32→19:46)
[2020-12-17] MEDS: ONDANSETRON 4 MG (ODT) TAB PO PRN (09:17)
--- NOTE | 2020-12-17 18:26 | R.PN ---
PROGRESS NOTES ENCOUNTER DATE AND TIME: 12/17/2020 18:23 (CDT) NAME NAS VALLEJO DATE OF : 1935 DATE OF ADMISSION: 12/08/2020 17:26 (CDT) UTI, Leukocytosis, weaknesssecondary diagnosis of parkinsonsCHIEF COMPLAINT: Debility SUBJECTIVE: Pt denied any depression. Pt denied any Shortness of Breath. Up and down 10 steps with standby assistance. Ambulated 460' with standby assistance. WBC now normal at 8.1., Hgb 10.9. Glucose 130 to 180. COVID-19 test is negative. VITAL SIGNS Temperature: 97.5 F SBP/DBP: 132/59 Pulse: 87 Resp: 16 MEDICATION ALLERGIES: Cyproheptadine HCI Flu Vaccine Penicillin ENVIRONMENTAL ALLERGIES: None Known - Substance Allergies None Known - Other Allergies None Known CONSULT: Perform Neuro consult NURSING: - Shower allowing shower ACTIVITIES OOB only with supervision THERAPIES: - Dietary and Nutrition Adequate Nutrition. Nutritional Education. Nutritional Supplements. - Speech Therapy Memory Strategies. Speech Intelligibility Training. PHYSICAL EXAM - Gen Alert and awake Lying in bed No apparent distress Oriented to: person, time, and place - Vital Signs Vital signs stable, afebrile - Skin No breakdown Normacephalic - Eyes No abnormalities - ENMT No abnormalities - Neck No abnormalities No cervical adenopathy - CVS RRR - Chest Clear - Resp No wheezing - Abd + bowel sounds - GI Non distended - No abnormalities - Ext Mild bilateral lower extremity edema. - MSK 4+/5 weakness in both lower extremities. - Neuro No focal deficits - Psych No abnormalities ASSESSMENT: Pt. is a 85 yo Right-handed white female.On 12/04/2020 she was admitted to Doctor Office with diagnos is UTI, Leukocytosis, weakness.Her impairment category is Debility 16 - Debility (16).Pre-morbidly, Pt. was independent/mod-I in Transfers Control, Locomotion, Self-Care, Social Cognition, Sphincter Co ntrol, and Communication; and she had good Balance and Safety Awareness.Currently, she has deficits o f Transfers Control, Balance, Locomotion, Safety Awareness, and Self-Care.Pt. is now referred to [facility] for acute in-patient rehabilitation in order to maximize patient's func tional independence in activities of daily living, strength, ROM, and mobility.- Rehab Goal Patient has realistic goal of being discharged at assistance level 5-sup to reside at Home with Fami ly/Relatives. MDM/PLAN: - Physical Therapy Gait dysfunction - to improve, our physical therapists will perform initial evaluation of pt's statu s upon admission and devise an individualized program for Gait Training, and Wheel Chair mobility Inability to transfer - to improve, our physical therapists will perform initial evaluation of pt's status upon admission and devise an individualized program for Bed mobility Need for home safety evaluation - to improve, our physical therapists will perform initial evaluatio n of pt's status upon admission and devise an individualized program for Home Evaluation Need in caregiver upon discharge - to improve, our physical therapists will perform initial evaluati on of pt's status upon admission and devise an individualized program for Caregiver Training Edema - to improve, our physical therapists will perform initial evaluation of pt's status upon admi ssion and devise an individualized program for Elevation Training, and Lymphedema Therapy New precaution - to improve, our physical therapists will perform initial evaluation of pt's status upon admission and devise an individualized program for Patient precaution education Poor balance - to improve, our physical therapists will perform initial evaluation of pt's status up on admission and devise an individualized program for Balance Training Weakness - to improve, our physical therapists will perform initial evaluation of pt's status upon a dmission and devise an individualized program for Aquatic Therapy, Neuromuscular Reeducation, and Str engthening Achieving independence - to improve, our physical therapists will perform initial evaluation of pt's status upon admission and devise an individualized program for Community Reintegration Activities - Occupational Therapy ADL deficits - to improve, our occupation therapists will perform initial evaluation of pt's status upon admission and devise an individualized program for Bathing, Bed mobility, Community Reintegratio n, Cooking, Dressing, Eating, Fine Motor Skills, Grooming, Homemaking, Kitchen Mobility, Laundry, Pat ient Education, Safety Awareness, Splinting - Positioning, Transfers(Toilet, Tub, Shower), and Wheel Chair Management Need for pediatric acute care unit nurse - to improve, our occupation therapists will perform initial evaluation of pt's status upon admission and devise an individualized program for Caregiver Training Weakness - to improve, our occupation therapists will perform initial evaluation of pt's status upon admission and devise an individualized program for Aquatic Therapy, Balance, Endurance, UE ROM, and UE strengthening - Other See attached MAR (Medication Administration Record) - Diet Type Continue Regular - Diet - Liquid Texture Continue Regular - Tube Feed Continue N/A - N/A Perform Neuro consult - Diet - Solid Texture Continue Regular - Shower allowing shower FUNCTIONAL STATUS: UPDATED AT WEEKLY TEAM CONFERENCE - Walking Same Same score based on distance walked: 0(N/A) Same score based on distance walked: 1(<=50ft) - Wheelchair Same Same score based on distance traveled: 0(N/A) FUNCTIONAL STATUS: - Self-Care A. Eating Memo B. Grooming Memo C. Bathing Beatris D. Dressing - Upper sup E. Dressing - Lower Beatris F. Toileting sup - Sphincter Control G. Bladder control sup H. Bowel control sup - Transfers Control I. Bed/Chair/Wheelchair Beatris J. Toilet Beatris K. Tub/Shower modA - Locomotion L. Walk/Wheelchair (B) Beatris M. Stairs ADNO - Communication N. Comprehension (B) sup O. Expression (B) sup - Social Cognition P. Social Interaction Memo Q. Problem Solving Memo R. Memory sup - Endurance Fair - Balance Fair - Safety Awareness Fair QI SCORES: - Self-Care A. Eating 04-Supervision or touching assistance B. Oral hygiene 04-Supervision or touching assistance C. Toileting hygiene 03-Partial/moderate assistance E. Shower/bathe self 02-Substantial/maximal assistance F. Upper body dressing 02-Substantial/maximal assistance G. Lower body dressing 88-Not attempted due to medical condition or safety concerns H. Putting on/taking off footwear 88-Not attempted due to medical condition or safety concerns - Mobility A. Roll left and right 03-Partial/moderate assistance B. Sit to lying 03-Partial/moderate assistance C. Lying to sitting on side of bed 03-Partial/moderate assistance D. Sit to stand 03-Partial/moderate assistance E. Chair/aih-cc-paafh transfer 03-Partial/moderate assistance F. Toilet transfer 88-Not attempted due to medical condition or safety concerns G. Car transfer 88-Not attempted due to medical condition or safety concerns I. Walk 10 feet 02-Substantial/maximal assistance J. Walk 50 feet with two turns 88-Not attempted due to medical condition or safety concerns K. Walk 150 feet 88-Not attempted due to medical condition or safety concerns L. Walking 10 feet on uneven surfaces 88-Not attempted due to medical condition or safety concerns M. 1 step (curb) 88-Not attempted due to medical condition or safety concerns N. 4 steps 88-Not attempted due to medical condition or safety concerns O. 12 steps 88-Not attempted due to medical condition or safety concerns P. Picking up object 88-Not attempted due to medical condition or safety concerns R. Wheel 50 feet with two turns 88-Not attempted due to medical condition or safety concerns S. Wheel 150 feet 88-Not attempted due to medical condition or safety concerns - Endurance Poor - Balance Poor - Safety Awareness Poor [facility] DEFICITS: Self-Care, Mobility, Endurance, Balance, and Safety Awareness SIGNATURE PANEL: (CDT)
[2020-12-17] MEDS: ATORVASTATIN 40 MG TAB PO SCH (19:45)
[2020-12-17] MEDS: DOCUSATE NA/SENNA CONC 1 TAB PO SCH (19:46)
[2020-12-18 06:44] LABS: Absolute Lymphocytes (CBC) 3.5 K/uL (0.7-4.9); Basophils % 0.7 % (0-1.3); Hematocrit 33.7 % (36.0-45.0); Lymphocytes % 45.6 % (15.3-44.8); MPV 9.5 fL (7.6-11.3); RBC Red Blood Cell Count 3.74 M/uL (3.86-4.86)
[2020-12-18 07:11] LABS: Albumin 2.6 g/dL (3.4-5.0); Magnesium 1.7 mg/dL (1.8-2.4); Prealbumin 14.8 mg/dL (20-40)
[2020-12-18] MEDS: METOPROLOL XL 25 MG TAB PO SCH ×2 (07:26→20:18)
[2020-12-18] MEDS: FOLIC ACID 1 MG TABLET PO SCH (07:26)
[2020-12-18] MEDS: METFORMIN ER 500 MG TAB PO SCH ×2 (07:27→17:15)
[2020-12-18] MEDS: APIXABAN 5 MG TABLET PO SCH ×2 (07:27→20:17)
[2020-12-18] MEDS: INSULIN -REGULAR HUMAN 50 UNIT/0.5 ML ML SQ SCH ×4 (07:27→20:18)
[2020-12-18] MEDS: JUVEN PACKET PO SCH ×2 (07:28→20:00)
[2020-12-18] MEDS: INSULIN GLARGINE 100 UNITS/ML SQ SCH ×2 (08:30→20:00)
--- NOTE | 2020-12-18 19:59 | R.PN ---
PROGRESS NOTES ENCOUNTER DATE AND TIME: 12/18/2020 19:54 (CDT) NAME NAS VALLEJO DATE OF : 1935 DATE OF ADMISSION: 12/08/2020 17:26 (CDT) UTI, Leukocytosis, weaknesssecondary diagnosis of parkinsonsCHIEF COMPLAINT: Debility SUBJECTIVE: Pt denied any depression. Pt denied any Shortness of Breath. Up and down 10 steps with standby assistance. Ambulated 560' with standby assistance. WBC now normal at 7.8., Hgb 11.0. Glucose 146 to 182, prealbumin 14.8. COVID-19 test is negative. VITAL SIGNS Temperature: 97.5 F SBP/DBP: 131/63 Pulse: 79 Resp: 15 MEDICATION ALLERGIES: Cyproheptadine HCI Flu Vaccine Penicillin ENVIRONMENTAL ALLERGIES: None Known - Substance Allergies None Known - Other Allergies None Known CONSULT: Perform Neuro consult NURSING: - Shower allowing shower ACTIVITIES OOB only with supervision THERAPIES: - Dietary and Nutrition Adequate Nutrition. Nutritional Education. Nutritional Supplements. - Speech Therapy Memory Strategies. Speech Intelligibility Training. PHYSICAL EXAM - Gen Alert and awake Lying in bed No apparent distress Oriented to: person, time, and place - Vital Signs Vital signs stable, afebrile - Skin No breakdown Normacephalic - Eyes No abnormalities - ENMT No abnormalities - Neck No abnormalities No cervical adenopathy - CVS RRR - Chest Clear - Resp No wheezing - Abd + bowel sounds - GI Non distended - No abnormalities - Ext Mild bilateral lower extremity edema. - MSK 4+/5 weakness in both lower extremities. - Neuro No focal deficits - Psych No abnormalities ASSESSMENT: Pt. is a 85 yo Right-handed white female.On 12/04/2020 she was admitted to Doctor Office with diagnos is UTI, Leukocytosis, weakness.Her impairment category is Debility 16 - Debility (16).Pre-morbidly, Pt. was independent/mod-I in Transfers Control, Locomotion, Self-Care, Social Cognition, Sphincter Co ntrol, and Communication; and she had good Balance and Safety Awareness.Currently, she has deficits o f Transfers Control, Balance, Locomotion, Safety Awareness, and Self-Care.Pt. is now referred to [facility] for acute in-patient rehabilitation in order to maximize patient's func tional independence in activities of daily living, strength, ROM, and mobility.- Rehab Goal Patient has realistic goal of being discharged at assistance level 5-sup to reside at Home with Fami ly/Relatives. MDM/PLAN: - Physical Therapy Gait dysfunction - to improve, our physical therapists will perform initial evaluation of pt's statu s upon admission and devise an individualized program for Gait Training, and Wheel Chair mobility Inability to transfer - to improve, our physical therapists will perform initial evaluation of pt's status upon admission and devise an individualized program for Bed mobility Need for home safety evaluation - to improve, our physical therapists will perform initial evaluatio n of pt's status upon admission and devise an individualized program for Home Evaluation Need in caregiver upon discharge - to improve, our physical therapists will perform initial evaluati on of pt's status upon admission and devise an individualized program for Caregiver Training Edema - to improve, our physical therapists will perform initial evaluation of pt's status upon admi ssion and devise an individualized program for Elevation Training, and Lymphedema Therapy New precaution - to improve, our physical therapists will perform initial evaluation of pt's status upon admission and devise an individualized program for Patient precaution education Poor balance - to improve, our physical therapists will perform initial evaluation of pt's status up on admission and devise an individualized program for Balance Training Weakness - to improve, our physical therapists will perform initial evaluation of pt's status upon a dmission and devise an individualized program for Aquatic Therapy, Neuromuscular Reeducation, and Str engthening Achieving independence - to improve, our physical therapists will perform initial evaluation of pt's status upon admission and devise an individualized program for Community Reintegration Activities - Occupational Therapy ADL deficits - to improve, our occupation therapists will perform initial evaluation of pt's status upon admission and devise an individualized program for Bathing, Bed mobility, Community Reintegratio n, Cooking, Dressing, Eating, Fine Motor Skills, Grooming, Homemaking, Kitchen Mobility, Laundry, Pat ient Education, Safety Awareness, Splinting - Positioning, Transfers(Toilet, Tub, Shower), and Wheel Chair Management Need for geriatric personal care aide - to improve, our occupation therapists will perform initial evaluation of pt's status upon admission and devise an individualized program for Caregiver Training Weakness - to improve, our occupation therapists will perform initial evaluation of pt's status upon admission and devise an individualized program for Aquatic Therapy, Balance, Endurance, UE ROM, and UE strengthening - Other See attached MAR (Medication Administration Record) - Diet Type Continue Regular - Diet - Liquid Texture Continue Regular - Tube Feed Continue N/A - N/A Perform Neuro consult - Diet - Solid Texture Continue Regular - Shower allowing shower FUNCTIONAL STATUS: UPDATED AT WEEKLY TEAM CONFERENCE - Walking Same Same score based on distance walked: 0(N/A) Same score based on distance walked: 1(<=50ft) - Wheelchair Same Same score based on distance traveled: 0(N/A) FUNCTIONAL STATUS: - Self-Care A. Eating Memo B. Grooming Memo C. Bathing Beatris D. Dressing - Upper sup E. Dressing - Lower Beatris F. Toileting sup - Sphincter Control G. Bladder control sup H. Bowel control sup - Transfers Control I. Bed/Chair/Wheelchair Beatris J. Toilet Beatris K. Tub/Shower modA - Locomotion L. Walk/Wheelchair (B) Beatris M. Stairs ADNO - Communication N. Comprehension (B) sup O. Expression (B) sup - Social Cognition P. Social Interaction Memo Q. Problem Solving Memo R. Memory sup - Endurance Fair - Balance Fair - Safety Awareness Fair QI SCORES: - Self-Care A. Eating 04-Supervision or touching assistance B. Oral hygiene 04-Supervision or touching assistance C. Toileting hygiene 03-Partial/moderate assistance E. Shower/bathe self 02-Substantial/maximal assistance F. Upper body dressing 02-Substantial/maximal assistance G. Lower body dressing 88-Not attempted due to medical condition or safety concerns H. Putting on/taking off footwear 88-Not attempted due to medical condition or safety concerns - Mobility A. Roll left and right 03-Partial/moderate assistance B. Sit to lying 03-Partial/moderate assistance C. Lying to sitting on side of bed 03-Partial/moderate assistance D. Sit to stand 03-Partial/moderate assistance E. Chair/eyz-bo-rlsbw transfer 03-Partial/moderate assistance F. Toilet transfer 88-Not attempted due to medical condition or safety concerns G. Car transfer 88-Not attempted due to medical condition or safety concerns I. Walk 10 feet 02-Substantial/maximal assistance J. Walk 50 feet with two turns 88-Not attempted due to medical condition or safety concerns K. Walk 150 feet 88-Not attempted due to medical condition or safety concerns L. Walking 10 feet on uneven surfaces 88-Not attempted due to medical condition or safety concerns M. 1 step (curb) 88-Not attempted due to medical condition or safety concerns N. 4 steps 88-Not attempted due to medical condition or safety concerns O. 12 steps 88-Not attempted due to medical condition or safety concerns P. Picking up object 88-Not attempted due to medical condition or safety concerns R. Wheel 50 feet with two turns 88-Not attempted due to medical condition or safety concerns S. Wheel 150 feet 88-Not attempted due to medical condition or safety concerns - Endurance Poor - Balance Poor - Safety Awareness Poor [facility] DEFIC[facility]: Self-Care, Mobility, Endurance, Balance, and Safety Awareness SIGNATURE PANEL: (CDT)
[2020-12-18] MEDS: DOCUSATE NA/SENNA CONC 1 TAB PO SCH (20:17)
[2020-12-18] MEDS: ATORVASTATIN 40 MG TAB PO SCH (20:17)
[2020-12-19] MEDS: INSULIN -REGULAR HUMAN 50 UNIT/0.5 ML ML SQ SCH ×4 (07:30→21:00)
[2020-12-19] MEDS: FOLIC ACID 1 MG TABLET PO SCH (07:41)
[2020-12-19] MEDS: METFORMIN ER 500 MG TAB PO SCH ×2 (07:41→16:53)
[2020-12-19] MEDS: METOPROLOL XL 25 MG TAB PO SCH ×2 (07:41→20:00)
[2020-12-19] MEDS: APIXABAN 5 MG TABLET PO SCH ×2 (07:41→21:01)
[2020-12-19] MEDS: INSULIN GLARGINE 100 UNITS/ML SQ SCH ×2 (07:42→21:02)
[2020-12-19] MEDS: JUVEN PACKET PO SCH ×2 (08:00→21:02)
--- NOTE | 2020-12-19 09:49 | P.RH.PN ---
Estimated Length of Stay: 17 Expected Discharge Date: 12/27/20 Discharge Disposition Plan: Home Family Support: Yes Detention Goal: Mobility, Transfers, Self Care Vital Signs: Last Vital Signs Temp 98.7 F 12/19/20 09:08 Pulse 79 12/19/20 09:08 Resp 16 12/19/20 09:08 BP 124/60 12/19/20 09:08 Pulse Ox 95 12/19/20 09:08 Laboratory: Laboratory Last Values WBC 7.80 K/uL (4.3-10.9) 12/18/20 06:02 RBC 3.74 M/uL (3.86-4.86) L 12/18/20 06:02 Hgb 11.0 g/dL (12.0-15.0) L 12/18/20 06:02 Hct 33.7 % (36.0-45.0) L 12/18/20 06:02 MCV 90.0 fL (80-100) 12/18/20 06:02 MCH 29.5 pg (27.0-35.0) 12/18/20 06:02 MCHC 32.8 g/dL (32.0-36.0) 12/18/20 06:02 RDW 14.4 % (12.1-15.2) 12/18/20 06:02 Plt Count 245 K/uL (152-406) 12/18/20 06:02 MPV 9.5 fL (7.6-11.3) 12/18/20 06:02 Neutrophils % 43.3 % (41.7-73.7) 12/18/20 06:02 Lymphocytes % 45.6 % (15.3-44.8) H 12/18/20 06:02 Monocytes % 8.8 % (3.3-12.3) 12/18/20 06:02 Eosinophils % 1.6 % (0-4.4) 12/18/20 06:02 Basophils % 0.7 % (0-1.3) 12/18/20 06:02 Absolute Neutrophils 3.4 K/uL (1.8-8.0) 12/18/20 06:02 Absolute Lymphocytes 3.5 K/uL (0.7-4.9) 12/18/20 06:02 Absolute Monocytes 0.7 K/uL (0.1-1.3) 12/18/20 06:02 Absolute Eosinophils 0.1 K/uL (0-0.5) 12/18/20 06:02 Absolute Basophils 0.1 K/uL (0-0.5) 12/18/20 06:02 Platelet Estimate Adeq 12/09/20 05:54 Giant Platelets Present 12/09/20 05:54 Morphology Comment Not seen (NOT SEEN) 12/09/20 05:54 Sodium 146 mmol/L (136-145) H 12/18/20 06:02 Potassium 4.0 mmol/L (3.5-5.1) 12/18/20 06:02 Chloride 113 mmol/L (98-107) H 12/18/20 06:02 Carbon Dioxide 28 mmol/L (21-32) 12/18/20 06:02 BUN 20 mg/dL (7-18) H 12/18/20 06:02 Creatinine 0.72 mg/dL (0.55-1.3) 12/18/20 06:02 Estimated GFR 77 mL/min (=/>90) L 12/18/20 06:02 Glucose 118 mg/dL (74-106) H 12/18/20 06:02 POC Glucose 122 mg/dL (65-120) H 12/19/20 07:11 Calcium 8.8 mg/dL (8.5-10.1) 12/18/20 06:02 Magnesium 1.7 mg/dL (1.8-2.4) L 12/18/20 06:02 Albumin 2.6 g/dL (3.4-5.0) L 12/18/20 06:02 Prealbumin 14.8 mg/dL (20-40) L 12/18/20 06:02 SARS-CoV-2 RNA (RT-PCR) Negative (NEGATIVE) 12/11/20 05:53 Smear Scan Ok (OK) 12/09/20 05:54 Weight: 196 lb 8 oz Wound Present: No Closed Surgical Incision Present: No Negative Pressure Wound Therapy Present: No Physician Update: Labs reviewed and are stable. Walking 310' with standby assistance, up and down 10 steps. Independent with transfers. She is at standby assistance with ADLs. Summary: Patient's care plan and custodial goals have been reviewed and revised as necessary. Please see the Rehabilitation Signature page for all necessary signatures.
[2020-12-19] MEDS: FORMULATION-R RECTAL 30GM PR PRN (09:50)
[2020-12-19] MEDS: ATORVASTATIN 40 MG TAB PO SCH (21:04)
[2020-12-19] MEDS: DOCUSATE NA/SENNA CONC 1 TAB PO SCH (21:04)
--- NOTE | 2020-12-20 04:43 | R.PN ---
PROGRESS NOTES ENCOUNTER DATE AND TIME: 12/11/2020 20:07 (CDT) NAME NAS VALLEJO DATE OF : 1935 DATE OF ADMISSION: 12/08/2020 17:26 (CDT) UTI, Leukocytosis, weaknesssecondary diagnosis of parkinsonsCHIEF COMPLAINT: Debility SUBJECTIVE: Pt denied any depression. Pt denied any Shortness of Breath. Ambulated 18' with contact guard assistance. Up and down 5 steps with contact guard assistance. WBC mildly elevated to 12.7 from 10.6 2 days ago. Prealbumin 11.3, glucose 110 to 220. COVID-19 test is negative. VITAL SIGNS Temperature: 97.7 F SBP/DBP: 119/59 Pulse: 81 Resp: 16 MEDICATION ALLERGIES: Cyproheptadine HCI Flu Vaccine Penicillin ENVIRONMENTAL ALLERGIES: None Known - Substance Allergies None Known - Other Allergies None Known CONSULT: Perform Neuro consult NURSING: - Shower allowing shower ACTIVITIES OOB only with supervision THERAPIES: - Dietary and Nutrition Adequate Nutrition. Nutritional Education. Nutritional Supplements. - Speech Therapy Memory Strategies. Speech Intelligibility Training. PHYSICAL EXAM - Gen Alert and awake Lying in bed No apparent distress Oriented to: person, time, and place - Vital Signs Vital signs stable, afebrile - Skin No breakdown Normacephalic - Eyes No abnormalities - ENMT No abnormalities - Neck No abnormalities No cervical adenopathy - CVS RRR - Chest Clear - Resp No wheezing - Abd + bowel sounds - GI Non distended - No abnormalities - Ext Mild bilateral lower extremity edema. - MSK 4+/5 weakness in both lower extremities. - Neuro No focal deficits - Psych No abnormalities ASSESSMENT: Pt. is a 85 yo Right-handed white female.On 12/04/2020 she was admitted to Doctor Office with diagnos is UTI, Leukocytosis, weakness.Her impairment category is Debility 16 - Debility (16).Pre-morbidly, Pt. was independent/mod-I in Transfers Control, Locomotion, Self-Care, Social Cognition, Sphincter Co ntrol, and Communication; and she had good Balance and Safety Awareness.Currently, she has deficits o f Transfers Control, Balance, Locomotion, Safety Awareness, and Self-Care.Pt. is now referred to [facility] for acute in-patient rehabilitation in order to maximize patient's func tional independence in activities of daily living, strength, ROM, and mobility.- Rehab Goal Patient has realistic goal of being discharged at assistance level 5-sup to reside at Home with Fami ly/Relatives. MDM/PLAN: - Physical Therapy Gait dysfunction - to improve, our physical therapists will perform initial evaluation of pt's statu s upon admission and devise an individualized program for Gait Training, and Wheel Chair mobility Inability to transfer - to improve, our physical therapists will perform initial evaluation of pt's status upon admission and devise an individualized program for Bed mobility Need for home safety evaluation - to improve, our physical therapists will perform initial evaluatio n of pt's status upon admission and devise an individualized program for Home Evaluation Need in caregiver upon discharge - to improve, our physical therapists will perform initial evaluati on of pt's status upon admission and devise an individualized program for Caregiver Training Edema - to improve, our physical therapists will perform initial evaluation of pt's status upon admis tod and devise an individualized program for Elevation Training, and Lymphedema Therapy New precaution - to improve, our physical therapists will perform initial evaluation of pt's status upon admission and devise an individualized program for Patient precaution education Poor balance - to improve, our physical therapists will perform initial evaluation of pt's status up on admission and devise an individualized program for Balance Training Weakness - to improve, our physical therapists will perform initial evaluation of pt's status upon a dmission and devise an individualized program for Aquatic Therapy, Neuromuscular Reeducation, and Str engthening Achieving independence - to improve, our physical therapists will perform initial evaluation of pt's status upon admission and devise an individualized program for Community Reintegration Activities - Occupational Therapy ADL deficits - to improve, our occupation therapists will perform initial evaluation of pt's status upon admission and devise an individualized program for Bathing, Bed mobility, Community Reintegratio n, Cooking, Dressing, Eating, Fine Motor Skills, Grooming, Homemaking, Kitchen Mobility, Laundry, Pat ient Education, Safety Awareness, Splinting - Positioning, Transfers(Toilet, Tub, Shower), and Wheel Chair Management Need for pet care attendant - to improve, our occupation therapists will perform initial evaluation of pt's status upon admission and devise an individualized program for Caregiver Training Weakness - to improve, our occupation therapists will perform initial evaluation of pt's status upon admission and devise an individualized program for Aquatic Therapy, Balance, Endurance, UE ROM, and UE strengthening - Other See attached MAR (Medication Administration Record) - Diet Type Continue Regular - Diet - Liquid Texture Continue Regular - Tube Feed Continue N/A - N/A Perform Neuro consult - Diet - Solid Texture Continue Regular - Shower allowing shower FUNCTIONAL STATUS: UPDATED AT WEEKLY TEAM CONFERENCE - Walking Same Same score based on distance walked: 0(N/A) Same score based on distance walked: 1(<=50ft) - Wheelchair Same Same score based on distance traveled: 0(N/A) FUNCTIONAL STATUS: - Self-Care A. Eating Memo B. Grooming Memo C. Bathing Beatris D. Dressing - Upper sup E. Dressing - Lower Beatris F. Toileting sup - Sphincter Control G. Bladder control sup H. Bowel control sup - Transfers Control I. Bed/Chair/Wheelchair Beatris J. Toilet Beatris K. Tub/Shower modA - Locomotion L. Walk/Wheelchair (B) Beatris M. Stairs ADNO - Communication N. Comprehension (B) sup O. Expression (B) sup - Social Cognition P. Social Interaction Memo Q. Problem Solving Memo R. Memory sup - Endurance Fair - Balance Fair - Safety Awareness Fair QI SCORES: - Self-Care A. Eating 04-Supervision or touching assistance B. Oral hygiene 04-Supervision or touching assistance C. Toileting hygiene 03-Partial/moderate assistance E. Shower/bathe self 02-Substantial/maximal assistance F. Upper body dressing 02-Substantial/maximal assistance G. Lower body dressing 88-Not attempted due to medical condition or safety concerns H. Putting on/taking off footwear 88-Not attempted due to medical condition or safety concerns - Mobility A. Roll left and right 03-Partial/moderate assistance B. Sit to lying 03-Partial/moderate assistance C. Lying to sitting on side of bed 03-Partial/moderate assistance D. Sit to stand 03-Partial/moderate assistance E. Chair/[id number] transfer 03-Partial/moderate assistance F. Toilet transfer 88-Not attempted due to medical condition or safety concerns G. Car transfer 88-Not attempted due to medical condition or safety concerns I. Walk 10 feet 02-Substantial/maximal assistance J. Walk 50 feet with two turns 88-Not attempted due to medical condition or safety concerns K. Walk 150 feet 88-Not attempted due to medical condition or safety concerns L. Walking 10 feet on uneven surfaces 88-Not attempted due to medical condition or safety concerns M. 1 step (curb) 88-Not attempted due to medical condition or safety concerns N. 4 steps 88-Not attempted due to medical condition or safety concerns O. 12 steps 88-Not attempted due to medical condition or safety concerns P. Picking up object 88-Not attempted due to medical condition or safety concerns R. Wheel 50 feet with two turns 88-Not attempted due to medical condition or safety concerns S. Wheel 150 feet 88-Not attempted due to medical condition or safety concerns - Endurance Poor - Balance Poor - Safety Awareness Poor [facility] DEFICITS: Self-Care, Mobility, Endurance, Balance, and Safety Awareness SIGNATURE PANEL: (CDT)
[2020-12-20] MEDS: INSULIN -REGULAR HUMAN 50 UNIT/0.5 ML ML SQ SCH ×4 (07:30→20:07)
[2020-12-20] MEDS: FOLIC ACID 1 MG TABLET PO SCH (07:53)
[2020-12-20] MEDS: METFORMIN ER 500 MG TAB PO SCH ×2 (07:53→16:57)
[2020-12-20] MEDS: APIXABAN 5 MG TABLET PO SCH ×2 (07:53→20:06)
[2020-12-20] MEDS: METOPROLOL XL 25 MG TAB PO SCH ×2 (07:53→20:05)
[2020-12-20] MEDS: JUVEN PACKET PO SCH ×2 (08:00→20:00)
[2020-12-20] MEDS: INSULIN GLARGINE 100 UNITS/ML SQ SCH ×2 (09:00→20:06)
[2020-12-20] MEDS: DOCUSATE NA/SENNA CONC 1 TAB PO SCH (20:05)
[2020-12-20] MEDS: ATORVASTATIN 40 MG TAB PO SCH (20:06)
[2020-12-21] MEDS: INSULIN -REGULAR HUMAN 50 UNIT/0.5 ML ML SQ SCH ×4 (07:30→21:00)
[2020-12-21] MEDS: JUVEN PACKET PO SCH ×2 (08:00→20:00)
[2020-12-21] MEDS: METFORMIN ER 500 MG TAB PO SCH ×2 (08:29→17:13)
[2020-12-21] MEDS: APIXABAN 5 MG TABLET PO SCH ×2 (08:29→21:03)
[2020-12-21] MEDS: FOLIC ACID 1 MG TABLET PO SCH (08:29)
[2020-12-21] MEDS: METOPROLOL XL 25 MG TAB PO SCH ×2 (08:30→21:03)
[2020-12-21] MEDS: INSULIN GLARGINE 100 UNITS/ML SQ SCH ×2 (08:30→21:03)
[2020-12-21] MEDS: ATORVASTATIN 40 MG TAB PO SCH (21:03)
[2020-12-21] MEDS: DOCUSATE NA/SENNA CONC 1 TAB PO SCH (21:03)
[2020-12-22] MEDS: INSULIN -REGULAR HUMAN 50 UNIT/0.5 ML ML SQ SCH ×4 (07:30→19:38)
[2020-12-22] MEDS: FOLIC ACID 1 MG TABLET PO SCH (07:46)
[2020-12-22] MEDS: METFORMIN ER 500 MG TAB PO SCH ×2 (07:46→17:03)
[2020-12-22] MEDS: APIXABAN 5 MG TABLET PO SCH ×2 (07:47→19:37)
[2020-12-22] MEDS: METOPROLOL XL 25 MG TAB PO SCH ×2 (07:47→19:37)
[2020-12-22] MEDS: FORMULATION-R RECTAL 30GM PR PRN (07:47)
[2020-12-22] MEDS: INSULIN GLARGINE 100 UNITS/ML SQ SCH ×2 (07:48→19:37)
[2020-12-22] MEDS: JUVEN PACKET PO SCH ×2 (08:00→19:38)
--- NOTE | 2020-12-22 19:24 | R.PN ---
PROGRESS NOTES ENCOUNTER DATE AND TIME: 12/22/2020 19:20 (CDT) NAME NAS VALLEJO DATE OF : 1935 DATE OF ADMISSION: 12/08/2020 17:26 (CDT) UTI, Leukocytosis, weaknesssecondary diagnosis of parkinsonsCHIEF COMPLAINT: Debility SUBJECTIVE: Pt denied any depression. Pt denied any Shortness of Breath. Up and down 10 steps with independence. Ambulated 550' with independence. WBC now normal at 7.8., Hgb 11.0. Glucose 106 to 136, prealbumin 14.8. COVID-19 test is negative. VITAL SIGNS Temperature: 97.6 F SBP/DBP: 117/60 Pulse: 79 Resp: 16 MEDICATION ALLERGIES: Cyproheptadine HCI Flu Vaccine Penicillin ENVIRONMENTAL ALLERGIES: None Known - Substance Allergies None Known - Other Allergies None Known CONSULT: Perform Neuro consult NURSING: - Shower allowing shower ACTIVITIES OOB only with supervision THERAPIES: - Dietary and Nutrition Adequate Nutrition. Nutritional Education. Nutritional Supplements. - Speech Therapy Memory Strategies. Speech Intelligibility Training. PHYSICAL EXAM - Gen Alert and awake Lying in bed No apparent distress Oriented to: person, time, and place - Vital Signs Vital signs stable, afebrile - Skin No breakdown Normacephalic - Eyes No abnormalities - ENMT No abnormalities - Neck No abnormalities No cervical adenopathy - CVS RRR - Chest Clear - Resp No wheezing - Abd + bowel sounds - GI Non distended - No abnormalities - Ext Mild bilateral lower extremity edema. - MSK 4+/5 weakness in both lower extremities. - Neuro No focal deficits - Psych No abnormalities ASSESSMENT: Pt. is a 85 yo Right-handed white female.On 12/04/2020 she was admitted to Doctor Office with diagnos is UTI, Leukocytosis, weakness.Her impairment category is Debility 16 - Debility (16).Pre-morbidly, Pt. was independent/mod-I in Transfers Control, Locomotion, Self-Care, Social Cognition, Sphincter Co ntrol, and Communication; and she had good Balance and Safety Awareness.Currently, she has deficits o f Transfers Control, Balance, Locomotion, Safety Awareness, and Self-Care.Pt. is now referred to [facility] for acute in-patient rehabilitation in order to maximize patient's func tional independence in activities of daily living, strength, ROM, and mobility.- Rehab Goal Patient has realistic goal of being discharged at assistance level 5-sup to reside at Home with Fami ly/Relatives. MDM/PLAN: - Physical Therapy Gait dysfunction - to improve, our physical therapists will perform initial evaluation of pt's statu s upon admission and devise an individualized program for Gait Training, and Wheel Chair mobility Inability to transfer - to improve, our physical therapists will perform initial evaluation of pt's status upon admission and devise an individualized program for Bed mobility Need for home safety evaluation - to improve, our physical therapists will perform initial evaluatio n of pt's status upon admission and devise an individualized program for Home Evaluation Need in caregiver upon discharge - to improve, our physical therapists will perform initial evaluati on of pt's status upon admission and devise an individualized program for Caregiver Training Edema - to improve, our physical therapists will perform initial evaluation of pt's status upon admi ssion and devise an individualized program for Elevation Training, and Lymphedema Therapy New precaution - to improve, our physical therapists will perform initial evaluation of pt's status upon admission and devise an individualized program for Patient precaution education Poor balance - to improve, our physical therapists will perform initial evaluation of pt's status up on admission and devise an individualized program for Balance Training Weakness - to improve, our physical therapists will perform initial evaluation of pt's status upon a dmission and devise an individualized program for Aquatic Therapy, Neuromuscular Reeducation, and Str engthening Achieving independence - to improve, our physical therapists will perform initial evaluation of pt's status upon admission and devise an individualized program for Community Reintegration Activities - Occupational Therapy ADL deficits - to improve, our occupation therapists will perform initial evaluation of pt's status upon admission and devise an individualized program for Bathing, Bed mobility, Community Reintegratio n, Cooking, Dressing, Eating, Fine Motor Skills, Grooming, Homemaking, Kitchen Mobility, Laundry, Pat ient Education, Safety Awareness, Splinting - Positioning, Transfers(Toilet, Tub, Shower), and Wheel Chair Management Need for acute care assistant - to improve, our occupation therapists will perform initial evaluation of pt's status upon admission and devise an individualized program for Caregiver Training Weakness - to improve, our occupation therapists will perform initial evaluation of pt's status upon admission and devise an individualized program for Aquatic Therapy, Balance, Endurance, UE ROM, and UE strengthening - Other See attached MAR (Medication Administration Record) - Diet Type Continue Regular - Diet - Liquid Texture Continue Regular - Tube Feed Continue N/A - N/A Perform Neuro consult - Diet - Solid Texture Continue Regular - Shower allowing shower FUNCTIONAL STATUS: UPDATED AT WEEKLY TEAM CONFERENCE - Walking Same Same score based on distance walked: 0(N/A) Same score based on distance walked: 1(<=50ft) - Wheelchair Same Same score based on distance traveled: 0(N/A) FUNCTIONAL STATUS: - Self-Care A. Eating Mmeo B. Grooming Memo C. Bathing Beatris D. Dressing - Upper sup E. Dressing - Lower Beatris F. Toileting sup - Sphincter Control G. Bladder control sup H. Bowel control sup - Transfers Control I. Bed/Chair/Wheelchair Beatris J. Toilet Beatris K. Tub/Shower modA - Locomotion L. Walk/Wheelchair (B) Beatris M. Stairs ADNO - Communication N. Comprehension (B) sup O. Expression (B) sup - Social Cognition P. Social Interaction Memo Q. Problem Solving Memo R. Memory sup - Endurance Fair - Balance Fair - Safety Awareness Fair QI SCORES: - Self-Care A. Eating 04-Supervision or touching assistance B. Oral hygiene 04-Supervision or touching assistance C. Toileting hygiene 03-Partial/moderate assistance E. Shower/bathe self 02-Substantial/maximal assistance F. Upper body dressing 02-Substantial/maximal assistance G. Lower body dressing 88-Not attempted due to medical condition or safety concerns H. Putting on/taking off footwear 88-Not attempted due to medical condition or safety concerns - Mobility A. Roll left and right 03-Partial/moderate assistance B. Sit to lying 03-Partial/moderate assistance C. Lying to sitting on side of bed 03-Partial/moderate assistance D. Sit to stand 03-Partial/moderate assistance E. Chair/fxa-qq-gytjq transfer 03-Partial/moderate assistance F. Toilet transfer 88-Not attempted due to medical condition or safety concerns G. Car transfer 88-Not attempted due to medical condition or safety concerns I. Walk 10 feet 02-Substantial/maximal assistance J. Walk 50 feet with two turns 88-Not attempted due to medical condition or safety concerns K. Walk 150 feet 88-Not attempted due to medical condition or safety concerns L. Walking 10 feet on uneven surfaces 88-Not attempted due to medical condition or safety concerns M. 1 step (curb) 88-Not attempted due to medical condition or safety concerns N. 4 steps 88-Not attempted due to medical condition or safety concerns O. 12 steps 88-Not attempted due to medical condition or safety concerns P. Picking up object 88-Not attempted due to medical condition or safety concerns R. Wheel 50 feet with two turns 88-Not attempted due to medical condition or safety concerns S. Wheel 150 feet 88-Not attempted due to medical condition or safety concerns - Endurance Poor - Balance Poor - Safety Awareness Poor [facility]IC[facility]: Self-Care, Mobility, Endurance, Balance, and Safety Awareness SIGNATURE PANEL: (CDT)
[2020-12-22] MEDS: ATORVASTATIN 40 MG TAB PO SCH (19:37)
[2020-12-22] MEDS: DOCUSATE NA/SENNA CONC 1 TAB PO SCH (19:38)
[2020-12-23] MEDS: INSULIN -REGULAR HUMAN 50 UNIT/0.5 ML ML SQ SCH ×4 (07:30→21:00)
[2020-12-23] MEDS: JUVEN PACKET PO SCH ×2 (08:00→20:00)
[2020-12-23] MEDS: FORMULATION-R RECTAL 30GM PR PRN (08:13)
[2020-12-23] MEDS: INSULIN GLARGINE 100 UNITS/ML SQ SCH ×2 (08:13→20:00)
[2020-12-23] MEDS: FOLIC ACID 1 MG TABLET PO SCH (08:13)
[2020-12-23] MEDS: METFORMIN ER 500 MG TAB PO SCH ×2 (08:13→17:07)
[2020-12-23] MEDS: METOPROLOL XL 25 MG TAB PO SCH ×2 (08:14→20:00)
[2020-12-23] MEDS: APIXABAN 5 MG TABLET PO SCH ×2 (08:14→20:00)
--- NOTE | 2020-12-23 18:02 | R.PN ---
PROGRESS NOTES ENCOUNTER DATE AND TIME: 12/23/2020 17:58 (CDT) NAME NAS VALLEJO DATE OF : 1935 DATE OF ADMISSION: 12/08/2020 17:26 (CDT) UTI, Leukocytosis, weaknesssecondary diagnosis of parkinsonsCHIEF COMPLAINT: Debility SUBJECTIVE: Pt denied any depression. Pt denied any Shortness of Breath. Up and down 10 steps with independence. Ambulated 600' with independence using a rolling walker. WBC now normal at 7.8., Hgb 11.0. Glucose 135 to 184, prealbumin 14.8. COVID-19 test is negative. VITAL SIGNS Temperature: 97.0 F SBP/DBP: 121/62 Pulse: 79 Resp: 16 MEDICATION ALLERGIES: Cyproheptadine HCI Flu Vaccine Penicillin ENVIRONMENTAL ALLERGIES: None Known - Substance Allergies None Known - Other Allergies None Known CONSULT: Perform Neuro consult NURSING: - Shower allowing shower ACTIVITIES OOB only with supervision THERAPIES: - Dietary and Nutrition Adequate Nutrition. Nutritional Education. Nutritional Supplements. - Speech Therapy Memory Strategies. Speech Intelligibility Training. PHYSICAL EXAM - Gen Alert and awake Lying in bed No apparent distress Oriented to: person, time, and place - Vital Signs Vital signs stable, afebrile - Skin No breakdown Normacephalic - Eyes No abnormalities - ENMT No abnormalities - Neck No abnormalities No cervical adenopathy - CVS RRR - Chest Clear - Resp No wheezing - Abd + bowel sounds - GI Non distended - No abnormalities - Ext Mild bilateral lower extremity edema. - MSK 4+/5 weakness in both lower extremities. - Neuro No focal deficits - Psych No abnormalities ASSESSMENT: Pt. is a 85 yo Right-handed white female.On 12/04/2020 she was admitted to Doctor Office with diagnos is UTI, Leukocytosis, weakness.Her impairment category is Debility 16 - Debility (16).Pre-morbidly, Pt. was independent/mod-I in Transfers Control, Locomotion, Self-Care, Social Cognition, Sphincter Co ntrol, and Communication; and she had good Balance and Safety Awareness.Currently, she has deficits o f Transfers Control, Balance, Locomotion, Safety Awareness, and Self-Care.Pt. is now referred to [facility] for acute in-patient rehabilitation in order to maximize patient's func tional independence in activities of daily living, strength, ROM, and mobility.- Rehab Goal Patient has realistic goal of being discharged at assistance level 5-sup to reside at Home with Fami ly/Relatives. MDM/PLAN: - Physical Therapy Gait dysfunction - to improve, our physical therapists will perform initial evaluation of pt's statu s upon admission and devise an individualized program for Gait Training, and Wheel Chair mobility Inability to transfer - to improve, our physical therapists will perform initial evaluation of pt's status upon admission and devise an individualized program for Bed mobility Need for home safety evaluation - to improve, our physical therapists will perform initial evaluatio n of pt's status upon admission and devise an individualized program for Home Evaluation Need in caregiver upon discharge - to improve, our physical therapists will perform initial evaluati on of pt's status upon admission and devise an individualized program for Caregiver Training Edema - to improve, our physical therapists will perform initial evaluation of pt's status upon admi ssion and devise an individualized program for Elevation Training, and Lymphedema Therapy New precaution - to improve, our physical therapists will perform initial evaluation of pt's status upon admission and devise an individualized program for Patient precaution education Poor balance - to improve, our physical therapists will perform initial evaluation of pt's status up on admission and devise an individualized program for Balance Training Weakness - to improve, our physical therapists will perform initial evaluation of pt's status upon a dmission and devise an individualized program for Aquatic Therapy, Neuromuscular Reeducation, and Str engthening Achieving independence - to improve, our physical therapists will perform initial evaluation of pt's status upon admission and devise an individualized program for Community Reintegration Activities - Occupational Therapy ADL deficits - to improve, our occupation therapists will perform initial evaluation of pt's status upon admission and devise an individualized program for Bathing, Bed mobility, Community Reintegratio n, Cooking, Dressing, Eating, Fine Motor Skills, Grooming, Homemaking, Kitchen Mobility, Laundry, Pat ient Education, Safety Awareness, Splinting - Positioning, Transfers(Toilet, Tub, Shower), and Wheel Chair Management Need for childcare teacher - to improve, our occupation therapists will perform initial evaluation of pt's status upon admission and devise an individualized program for Caregiver Training Weakness - to improve, our occupation therapists will perform initial evaluation of pt's status upon admission and devise an individualized program for Aquatic Therapy, Balance, Endurance, UE ROM, and UE strengthening - Other See attached MAR (Medication Administration Record) - Diet Type Continue Regular - Diet - Liquid Texture Continue Regular - Tube Feed Continue N/A - N/A Perform Neuro consult - Diet - Solid Texture Continue Regular - Shower allowing shower FUNCTIONAL STATUS: UPDATED AT WEEKLY TEAM CONFERENCE - Walking Same Same score based on distance walked: 0(N/A) Same score based on distance walked: 1(<=50ft) - Wheelchair Same Same score based on distance traveled: 0(N/A) FUNCTIONAL STATUS: - Self-Care A. Eating Memo B. Grooming Memo C. Bathing Beatris D. Dressing - Upper sup E. Dressing - Lower Beatris F. Toileting sup - Sphincter Control G. Bladder control sup H. Bowel control sup - Transfers Control I. Bed/Chair/Wheelchair Beatris J. Toilet Beatris K. Tub/Shower modA - Locomotion L. Walk/Wheelchair (B) Beatris M. Stairs ADNO - Communication N. Comprehension (B) sup O. Expression (B) sup - Social Cognition P. Social Interaction Memo Q. Problem Solving Memo R. Memory sup - Endurance Fair - Balance Fair - Safety Awareness Fair QI SCORES: - Self-Care A. Eating 04-Supervision or touching assistance B. Oral hygiene 04-Supervision or touching assistance C. Toileting hygiene 03-Partial/moderate assistance E. Shower/bathe self 02-Substantial/maximal assistance F. Upper body dressing 02-Substantial/maximal assistance G. Lower body dressing 88-Not attempted due to medical condition or safety concerns H. Putting on/taking off footwear 88-Not attempted due to medical condition or safety concerns - Mobility A. Roll left and right 03-Partial/moderate assistance B. Sit to lying 03-Partial/moderate assistance C. Lying to sitting on side of bed 03-Partial/moderate assistance D. Sit to stand 03-Partial/moderate assistance E. Chair/[id number] transfer 03-Partial/moderate assistance F. Toilet transfer 88-Not attempted due to medical condition or safety concerns G. Car transfer 88-Not attempted due to medical condition or safety concerns I. Walk 10 feet 02-Substantial/maximal assistance J. Walk 50 feet with two turns 88-Not attempted due to medical condition or safety concerns K. Walk 150 feet 88-Not attempted due to medical condition or safety concerns L. Walking 10 feet on uneven surfaces 88-Not attempted due to medical condition or safety concerns M. 1 step (curb) 88-Not attempted due to medical condition or safety concerns N. 4 steps 88-Not attempted due to medical condition or safety concerns O. 12 steps 88-Not attempted due to medical condition or safety concerns P. Picking up object 88-Not attempted due to medical condition or safety concerns R. Wheel 50 feet with two turns 88-Not attempted due to medical condition or safety concerns S. Wheel 150 feet 88-Not attempted due to medical condition or safety concerns - Endurance Poor - Balance Poor - Safety Awareness Poor [facility] DEFICITS: Self-Care, Mobility, Endurance, Balance, and Safety Awareness SIGNATURE PANEL: (CDT)
[2020-12-23 20:47] LABS: Absolute Lymphocytes (CBC) 3.6 K/uL (0.7-4.9); Basophils % 0.6 % (0-1.3); Hematocrit 36.5 % (36.0-45.0); Lymphocytes % 43.7 % (15.3-44.8); MPV 10.5 fL (7.6-11.3); RBC Red Blood Cell Count 4.05 M/uL (3.86-4.86)
[2020-12-23] MEDS: DOCUSATE NA/SENNA CONC 1 TAB PO SCH (21:00)
[2020-12-23] MEDS: ATORVASTATIN 40 MG TAB PO SCH (21:00)
[2020-12-23 21:08] LABS: Magnesium 1.6 mg/dL (1.8-2.4); Potassium 3.9 mmol/L (3.5-5.1); Prealbumin 14.3 mg/dL (20-40)
[2020-12-24] MEDS: INSULIN -REGULAR HUMAN 50 UNIT/0.5 ML ML SQ SCH ×4 (07:11→20:44)
[2020-12-24] MEDS: JUVEN PACKET PO SCH ×2 (08:00→20:00)
[2020-12-24] MEDS: APIXABAN 5 MG TABLET PO SCH ×2 (08:08→20:42)
[2020-12-24] MEDS: FOLIC ACID 1 MG TABLET PO SCH (08:08)
[2020-12-24] MEDS: METOPROLOL XL 25 MG TAB PO SCH ×2 (08:08→20:42)
[2020-12-24] MEDS: METFORMIN ER 500 MG TAB PO SCH ×2 (08:08→16:56)
[2020-12-24] MEDS: INSULIN GLARGINE 100 UNITS/ML SQ SCH ×2 (08:09→20:43)
--- NOTE | 2020-12-24 09:47 | P.RH.PN ---
Estimated Length of Stay: 15 Expected Discharge Date: 12/26/20 Discharge Disposition Plan: Assisted Living Facility Family Support: Yes Usp Goal: Mobility, Transfers, Self Care Vital Signs: Last Vital Signs Temp 97.6 F 12/24/20 07:10 Pulse 84 12/24/20 08:08 Resp 18 12/24/20 07:10 BP 132/66 12/24/20 08:08 Pulse Ox 96 12/24/20 07:10 Laboratory: Laboratory Last Values WBC 8.20 K/uL (4.3-10.9) 12/23/20 19:58 RBC 4.05 M/uL (3.86-4.86) 12/23/20 19:58 Hgb 12.1 g/dL (12.0-15.0) 12/23/20 19:58 Hct 36.5 % (36.0-45.0) 12/23/20 19:58 MCV 90.0 fL (80-100) 12/23/20 19:58 MCH 29.9 pg (27.0-35.0) 12/23/20 19:58 MCHC 33.2 g/dL (32.0-36.0) 12/23/20 19:58 RDW 14.7 % (12.1-15.2) 12/23/20 19:58 Plt Count 196 K/uL (152-406) 12/23/20 19:58 MPV 10.5 fL (7.6-11.3) D 12/23/20 19:58 Neutrophils % 45.7 % (41.7-73.7) 12/23/20 19:58 Lymphocytes % 43.7 % (15.3-44.8) 12/23/20 19:58 Monocytes % 7.8 % (3.3-12.3) 12/23/20 19:58 Eosinophils % 2.2 % (0-4.4) 12/23/20 19:58 Basophils % 0.6 % (0-1.3) 12/23/20 19:58 Absolute Neutrophils 3.8 K/uL (1.8-8.0) 12/23/20 19:58 Absolute Lymphocytes 3.6 K/uL (0.7-4.9) 12/23/20 19:58 Absolute Monocytes 0.6 K/uL (0.1-1.3) 12/23/20 19:58 Absolute Eosinophils 0.2 K/uL (0-0.5) 12/23/20 19:58 Absolute Basophils 0.1 K/uL (0-0.5) 12/23/20 19:58 Platelet Estimate Adeq 12/09/20 05:54 Giant Platelets Present 12/09/20 05:54 Morphology Comment Not seen (NOT SEEN) 12/09/20 05:54 Sodium 146 mmol/L (136-145) H 12/23/20 19:58 Potassium 3.9 mmol/L (3.5-5.1) 12/23/20 19:58 Chloride 111 mmol/L (98-107) H 12/23/20 19:58 Carbon Dioxide 27 mmol/L (21-32) 12/23/20 19:58 BUN 17 mg/dL (7-18) 12/23/20 19:58 Creatinine 0.76 mg/dL (0.55-1.3) 12/23/20 19:58 Estimated GFR 73 mL/min (=/>90) L 12/23/20 19:58 Glucose 190 mg/dL (74-106) H 12/23/20 19:58 POC Glucose 147 mg/dL (65-120) H 12/24/20 06:39 Calcium 9.0 mg/dL (8.5-10.1) 12/23/20 19:58 Magnesium 1.6 mg/dL (1.8-2.4) L 12/23/20 19:58 Albumin 3.0 g/dL (3.4-5.0) L 12/23/20 19:58 Prealbumin 14.3 mg/dL (20-40) L 12/23/20 19:58 SARS-CoV-2 RNA (RT-PCR) Negative (NEGATIVE) 12/11/20 05:53 Smear Scan Ok (OK) 12/09/20 05:54 Weight: 195 lb Wound Present: No Closed Surgical Incision Present: No Negative Pressure Wound Therapy Present: No Physician Update: Labs are stable. She is making good overall progress and will D/C to assisted living on Tuesday with [facility]. Walking indendently 250' and standby assistance with bed mobility and standby with stairs. Summary: Patient's care plan and care home goals have been reviewed and revised as necessary. Please see the Rehabilitation Signature page for all necessary signatures.
[2020-12-24] MEDS: ATORVASTATIN 40 MG TAB PO SCH (20:42)
[2020-12-24] MEDS: DOCUSATE NA/SENNA CONC 1 TAB PO SCH (20:42)
[2020-12-25] MEDS: INSULIN -REGULAR HUMAN 50 UNIT/0.5 ML ML SQ SCH ×4 (07:30→20:22)
[2020-12-25] MEDS: JUVEN PACKET PO SCH ×2 (07:36→20:00)
[2020-12-25] MEDS: INSULIN GLARGINE 100 UNITS/ML SQ SCH ×2 (07:55→20:21)
[2020-12-25] MEDS: METFORMIN ER 500 MG TAB PO SCH ×2 (07:56→16:53)
[2020-12-25] MEDS: FOLIC ACID 1 MG TABLET PO SCH (07:56)
[2020-12-25] MEDS: APIXABAN 5 MG TABLET PO SCH ×2 (07:56→20:22)
[2020-12-25] MEDS: METOPROLOL XL 25 MG TAB PO SCH ×2 (07:56→20:22)
[2020-12-25] MEDS: FORMULATION-R RECTAL 30GM PR PRN (14:32)
[2020-12-25] MEDS: DOCUSATE NA/SENNA CONC 1 TAB PO SCH (20:22)
[2020-12-25] MEDS: ATORVASTATIN 40 MG TAB PO SCH (20:22)
[2020-12-26 07:08] VITALS: BP 114/61; TEMP 97.1
[2020-12-26] MEDS: INSULIN -REGULAR HUMAN 50 UNIT/0.5 ML ML SQ SCH ×2 (07:30→11:30)
[2020-12-26] MEDS: JUVEN PACKET PO SCH (08:00)
[2020-12-26] MEDS: INSULIN GLARGINE 100 UNITS/ML SQ SCH (08:12)
[2020-12-26] MEDS: METFORMIN ER 500 MG TAB PO SCH (08:13)
[2020-12-26] MEDS: METOPROLOL XL 25 MG TAB PO SCH (08:13)
[2020-12-26] MEDS: FOLIC ACID 1 MG TABLET PO SCH (08:13)
[2020-12-26] MEDS: APIXABAN 5 MG TABLET PO SCH (08:14)
--- NOTE | 2020-12-26 10:23 | R.DS ---
DISCHARGE SUMMARY FACILITY [facility] MR# [id number] NAME NAS VALLEJO ADDRESS [address] [place] [address] [address] [id number] PHONE DATE OF 1935 AGE 85 SSN# [id number] GENDER Female DEXTERITY Right-handed MARITAL STATUS RACE White ENCOUNTER PHYSICIAN Dr. Lexa Thompson REFERRING DOCTOR DR. LUIS M CORDOBA REFERRING FACILITY Doctor Office DISCHARGE DIAGNOSIS: - Debility 16 - Debility (16) UTI, Leukocytosis, weakness. 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 DATE OF ADMISSION 12/08/2020 17:26 (CDT) MEDICATION ALLERGIES: Cyproheptadine HCI Flu Vaccine Penicillin ENVIRONMENTAL ALLERGIES: None Known - Substance Allergies None Known - Other Allergies None Known DISCHARGE MEDICATIONS: Other- ContinueSee attached MAR (Medication Administration Record). CONSULT: Perform Neuro consult NURSING: - Shower allowing shower ACTIVITIES OOB only with supervision THERAPIES: - Dietary and Nutrition Adequate Nutrition Nutritional Education Nutritional Supplements - Speech Therapy Memory Strategies Speech Intelligibility Training HISTORY OF PRESENT ILLNESS: Pt. is a 85 yo Right-handed white female.On 12/04/2020 she was admitted to Doctor Office with diagnos is UTI, Leukocytosis, weakness.Her impairment category is Debility 16 - Debility (16).Pre-morbidly, Pt. was independent/mod-I in Transfers Control, Locomotion, Self-Care, Social Cognition, Sphincter Co ntrol, and Communication; and she had good Balance and Safety Awareness.Currently, she has deficits o f Transfers Control, Balance, Locomotion, Safety Awareness, and Self-Care.Pt. is now referred to [facility] for acute in-patient rehabilitation in order to maximize patient's func tional independence in activities of daily living, strength, ROM, and mobility.- Rehab Goal Patient has realistic goal of being discharged at assistance level 5-sup to reside at Home with Fami ly/Relatives. HOSPITAL COURSE: DIET - LIQUID TEXTURE: On 12/08/2020 Pt was upgraded to Regular Diet - Liquid Texture. DIET - SOLID TEXTURE: On 12/08/2020 Pt was upgraded to Regular Diet - Solid Texture. DIET TYPE: On 12/08/2020 Pt was upgraded to Regular Diet Type. TUBE FEED: On 12/08/2020 Pt was changed to N/A Tube Feed. DISCHARGE PHYSICAL EXAM - Gen Alert and awake Lying in bed No apparent distress Oriented to: person, time, and place - Vital Signs Vital signs stable, afebrile - Skin No breakdown Normacephalic - Eyes No abnormalities - ENMT No abnormalities - Neck No abnormalities No cervical adenopathy - CVS RRR - Chest Clear - Resp No wheezing - Abd + bowel sounds - GI Non distended - No abnormalities - Ext Mild bilateral lower extremity edema. - MSK 4+/5 weakness in both lower extremities. - Neuro No focal deficits - Psych No abnormalities QI SCORES: - Self-Care A. Eating 04-Supervision or touching assistance B. Oral hygiene 04-Supervision or touching assistance C. Toileting hygiene 03-Partial/moderate assistance E. Shower/bathe self 02-Substantial/maximal assistance F. Upper body dressing 02-Substantial/maximal assistance G. Lower body dressing 88-Not attempted due to medical condition or safety concerns H. Putting on/taking off footwear 88-Not attempted due to medical condition or safety concerns - Mobility A. Roll left and right 03-Partial/moderate assistance B. Sit to lying 03-Partial/moderate assistance C. Lying to sitting on side of bed 03-Partial/moderate assistance D. Sit to stand 03-Partial/moderate assistance E. Chair/[id number] transfer 03-Partial/moderate assistance F. Toilet transfer 88-Not attempted due to medical condition or safety concerns G. Car transfer 88-Not attempted due to medical condition or safety concerns I. Walk 10 feet 02-Substantial/maximal assistance J. Walk 50 feet with two turns 88-Not attempted due to medical condition or safety concerns K. Walk 150 feet 88-Not attempted due to medical condition or safety concerns L. Walking 10 feet on uneven surfaces 88-Not attempted due to medical condition or safety concerns M. 1 step (curb) 88-Not attempted due to medical condition or safety concerns N. 4 steps 88-Not attempted due to medical condition or safety concerns O. 12 steps 88-Not attempted due to medical condition or safety concerns P. Picking up object 88-Not attempted due to medical condition or safety concerns R. Wheel 50 feet with two turns 88-Not attempted due to medical condition or safety concerns S. Wheel 150 feet 88-Not attempted due to medical condition or safety concerns - Endurance Poor - Balance Poor - Safety Awareness Poor DISCHARGE INSTRUCTIONS: - N/A FOLLOW_UP WITH PCP IN [place]. DISCHARGE PLAN, FOLLOW UP CARE PROVISIONS: - Estimated Length of Stay (days) 13. - Consensus on plan Discharge plan has been discussed with primary caregiver. Patient/Family is in agreement with the [place]. Primary caregiver is in agreement with the plan. - Patient/Family Goals Return home with assistance. SIGNATURE PANEL: (CDT)
== END 2020-12-26 14:35 | DRG 948 ==
LOC: 5TH 17:26
PROVIDERS: ADMIT Psychiatry & Neurology Neurology with Special Qualifications in Child Neurology; ATTEND Psychiatry & Neurology Neurology with Special Qualifications in Child Neurology
PROC: 0HBRXZZ Excision of Toe Nail, External Approach (ICD-10-PCS; principal; 2020-12-09)
DX: R53.81 Other malaise (principal); N39.0 Urinary tract infection, site not specified; L60.2 Onychogryphosis; B35.1 Tinea unguium; I10 Essential (primary) hypertension; E11.9 Type 2 diabetes mellitus without complications; D72.829 Elevated white blood cell count, unspecified; I70.91 Generalized atherosclerosis; G20 Parkinson's disease; Z90.710 Acquired absence of both cervix and uterus; Z88.0 Allergy status to penicillin; Z88.7 Allergy status to serum and vaccine; Z88.8 Allergy status to other drugs, medicaments and biological substances; Z79.01 Long term (current) use of anticoagulants; Z79.84 Long term (current) use of oral hypoglycemic drugs; Z79.899 Other long term (current) drug therapy; Z20.822 Contact with and (suspected) exposure to COVID-19
CPT/HCPCS: 36415; 80048; 82040; 82947; 83735; 84134; 85025; 97110; 97112; 97116; 97161; 97530; 97542; J1815; U0002; U0003